=== PATIENT | male | born 1945 | race Caucasian/White ===

== ENCOUNTER → 2021-03-15 08:31 | Outpatient (CLI) | payer MEDICARE, SELFPAY ==
[2021-03-15 10:27] LABS: Cholesterol 189 mg/dL (140-199); HDL Cholesterol 81 mg/dL (40-60); LDL Cholesterol Calculated 96 mg/dL (<100); Triglycerides 59 mg/dL (35-150)
== END ==
PROVIDERS: Family Provider Internal Medicine; PCP Internal Medicine; Referring Provider Internal Medicine; Visit Provider Internal Medicine
DX: Z13.220 Encounter for screening for lipoid disorders (principal)
CPT/HCPCS: 36415; 80061

== ENCOUNTER → 2024-01-11 09:10 | Outpatient (CLI) | payer MEDICARE, SELFPAY ==
--- NOTE | 2024-01-11 09:11 | DI.MRI.S_ITS ---
PROCEDURE: MR LUMBAR SPINE WO CON INDICATIONS: LE WEAKNESS AND NUMBNESS TECHNIQUE: Noncontrast sagittal T1 spin echo and T2 fast echo, sagittal STIR, and T2 fast spin echo through the lumbar spine. In cases with scoliosis, additional coronal T2 fast spin echo may be performed. COMPARISON: None. FINDINGS: Image quality: Excellent Localizer image: Unremarkable Mild retrolisthesis of L2 on L3, L3 on L4. Grade 1 anterolisthesis L4 on L5. Mild retrolisthesis of L5 on S1. There is mild superior and inferior endplate fracture of L1, without marrow edema, chronic. Multilevel fibrovascular endplate change of the lumbar spine. Multilevel disc bulge and disc desiccation. Conus terminates at the level of L2, and is unremarkable. Right neural foraminal stenosis: Mild at L4-5, severe at L5-S1. Left neural foraminal stenosis: Mild at L3-4, moderate at L4-5 and mild at L5-S1. Mild central canal stenosis at T11-T12, secondary to posterior disc osteophyte complex. Axial images: T12-L1: No central canal stenosis. L1-2: No central canal stenosis. L2-3: Mild bilateral facet arthropathy. Posterior disc uncovering. No central canal stenosis. L3-4: Disc bulge. Moderate bilateral facet arthropathy. Epidural lipomatosis. Severe central canal stenosis. L4-5: Disc bulge. Severe bilateral facet arthropathy. Epidural lipomatosis. Severe central canal stenosis. L5-S1: Disc bulge. Mild bilateral facet arthropathy. No central canal stenosis. Visualized sacrum is intact. No abdominal aortic aneurysm. IMPRESSION: 1. Multilevel degenerative changes of the lumbar spine, most pronounced at L3-4 and L4-5, where there is severe central canal stenosis. 2. Severe right neural foraminal stenosis at L5-S1. 3. Chronic, mild superior and inferior endplate fracture of L1. Dictated by: Arlin Beach M.D. on 01/11/2024 at 14:04 Approved by: Arlin Beach M.D. on 01/11/2024 at 14:15
== END ==
PROVIDERS: Family Provider Internal Medicine; PCP Internal Medicine; Referring Provider Physical Medicine & Rehabilitation Pain Medicine; Visit Provider Physical Medicine & Rehabilitation Pain Medicine
DX: M48.061 Spinal stenosis, lumbar region without neurogenic claudication (principal); M48.07 Spinal stenosis, lumbosacral region; M47.816 Spondylosis without myelopathy or radiculopathy, lumbar region; M47.817 Spondylosis without myelopathy or radiculopathy, lumbosacral region; M48.56XA Collapsed vertebra, not elsewhere classified, lumbar region, initial encounter for fracture
CPT/HCPCS: 72148

== ENCOUNTER 2024-08-23 09:00 | Outpatient (RCR) | payer MEDICARE, SELFPAY ==
--- NOTE | 2024-05-04 12:35 | PT.OIE ---
Current Diagnoses Spinal stenosis, lumbar region with neurogenic claudication (05/04/24) Postlaminectomy syndrome, not elsewhere classified (05/04/24) Other abnormalities of gait and mobility (05/04/24) Abnormal posture (05/04/24) Weakness (05/04/24) Visit Care Team Role Provider Type Gomez Cash MD Family Provider Physician Primary Care Provider Specialty: Internal Medicine Address: [address] [place] [address], [facility] [address], [address] Email: [email or web address] Little MD Attending Provider Non-Staff Referring Provider Specialty: Orthopedics Orthopedic Surgery Address: [address] [place] [address], [id number] Email: Physical Therapy Initial Evaluation PT-OP-A Visit Information Start: 04/25/24 10:29 Freq: Status: Active Protocol: Document 05/04/24 09:45 [facility] (Rec: 05/04/24 10:51 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 (Rec: 05/04/24 10:51 [facility] [id number]) Current Condition History of Current Condition Onset Date Dec 2 Current Complaints lami L4-5 History of Current Condition Pt had laminectomy L4-5 Dec 2 d/t could hardly bent L leg. Took care of flexiblity issues but is still very still when first gets up. no more pain down leg. Pt reports doens't ahve much pain but feels stiff when standing a long time. Pt reports has to walk slowly to not lose balance. He feels like over the past 3 years he has had a gradual dec in balance and ability to respond to uneven ground. Got to the point where he hasn't been able to ride horses for 3 years and has not been able to paly w/grandkids. 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 Has 7 of own horses and board 3 other horses but has a date pitter on the property to care of the horses for 15 days a month. Mostly does care of stalls but he does all the repairs of fences etc. Feels like got bent over more in the last year. First started getting back pain and leg issues about 3 years ago. did have neck surgery and was helping friend get horse in trailer and slipped on ice and fell on neck, head and shulder and was paralyzed for 24 hours in legs and arms gradually got movement back. had to be taken by ambulance to [facility]. C3-4 fusion and vertebral replacement (ant and post) performed at [facility] for emergency surgery may 14, 2009, (injury was Apr 27 2008) . During recovery process was very restricted for 5 months. Did have coordination issues after surgery and hasn't gotten full recovery of RUE. this has affected his leg coordination. Another occasion where he cracked a vertebra in back and thinks this may have contributed to stenosis in back. Does report he has BLT restrictiona nd adheres to lifting restrictions, but does feel like it is hard to avoid bending and twisting Treatment Goals Patient/Caregiver Goals Improve walking ability and be able mount his horse and ride again. PT-OP-C Subjective Start: 04/25/24 10:29 Freq: Status: Active Protocol: Document 05/04/24 09:45 [facility] (Rec: 05/04/24 10:51 [facility] [id number]) OP-PT Pain Assessment Location back pain Pain Location Details back discomfort and leg stiffness Description- Other stiff Pain Aggravating Factors Standing PT-OP-D Balance Start: 04/25/24 10:29 Freq: Status: Active Protocol: Document 05/04/24 09:45 [facility] (Rec: 05/04/24 10:51 [facility] [id number]) Balance Tests Single Limb Standing Single Limb- Right able to lift leg only Single Limb- Left able to lift leg only PT-OP-E Functional Tests Start: 05/04/24 12:27 Freq: Status: Active Protocol: Document 05/04/24 09:45 [facility] (Rec: 05/04/24 12:27 [facility] [id number]) Functional Tests Dynamic Gait Index (DGI) Score 11/17 PT-OP-F Manual Assessment Start: 04/25/24 10:29 Freq: Status: Active Protocol: Document 05/04/24 09:45 [facility] (Rec: 05/04/24 10:51 [facility] [id number]) Manual Assessments Joint Mobility Assessment Joint Mobility Assessment significant lack of hip mobility PT-OP-G Mobility & Gait Start: 04/25/24 10:29 Freq: Status: Active Protocol: Document 05/04/24 09:45 [facility] (Rec: 05/04/24 10:51 [facility] [id number]) OP Gait Assessment Comments Gait Comments flexed trunk, dec RLE stance time, dec B foot clearance, lat L lean w/WB on LLE PT-OP-J Posture/Palpation/Skin Start: 04/25/24 10:29 Freq: Status: Active Protocol: Document 05/04/24 09:45 [facility] (Rec: 05/04/24 10:51 [facility] [id number]) Posture Evaluation [facility] Postural Classification System Lumbar Protective Mechanism Left AP 0 Lumbar Protective Mechanism Right AP 0 Lumbar Protective Mechanism Left PA 0 Lumbar Protective Mechanism Right PA 0 Comments Posture Comments fwd bent, flexed hips, inc kyphosis, L slightly bent, rotated R, SB L, pelvis shear R PT-OP-K Range of Motion Start: 04/25/24 10:29 Freq: Status: Active Protocol: Document 05/04/24 09:45 [facility] (Rec: 05/04/24 10:51 [facility] [id number]) Lumbar Spine Range of Motion Lumbar Spine Active Percentage Comments n/t d/t restrictions PT-OP-L Special Tests Start: 04/25/24 10:29 Freq: Status: Active Protocol: Document 05/04/24 09:45 [facility] (Rec: 05/04/24 10:51 [facility] [id number]) Special Tests Lumbar Spine Special Tests SLR Test Results R>L HS tightness Slump Test Results neg -dec HS length Other Special Tests Special Tests tone noted in RLE PT-OP-M Strength Start: 04/25/24 10:29 Freq: Status: Active Protocol: Document 05/04/24 09:45 [facility] (Rec: 05/04/24 10:51 [facility] [id number]) Hip Strength Hip Manual Muscle Testing Right Flexion (L2) 4- Good- Abduction 3 Fair External Rotation 3 Fair Internal Rotation 3- Fair- Left Flexion (L2) 4- Good- Abduction 3+ Fair+ External Rotation 3+ Fair+ Internal Rotation 3- Fair- Knee Strength Knee Manual Muscle Testing Right Flexion (S2) 4- Good- Extension (L3) 4+ Good+ Left Flexion (S2) 4 Good Extension (L3) 4+ Good+ Ankle/Foot Strength Ankle and Foot Manual Muscle Testing Right Dorsiflexion (L4) 4 Good Plantarflexion (S1) 4 Good Left Dorsiflexion (L4) 4- Good- Plantarflexion (S1) 4 Good Comments PF tested seated B PT-OP-T Assessment and Plan Start: 04/25/24 10:29 Freq: Status: Active Protocol: Document 05/04/24 09:45 [facility] (Rec: 05/04/24 10:51 [facility] [id number]) Physical Therapy Assessment Rehab Potential Rehabilitation Potential Good Evaluation Complexity Number of Personal Factors/Comorbidities 3 or More Number of Body Systems Impaired 4 or More Clinical Presentation at Evaluation Evolving Impairments Impairments Activity Tolerance,Balance, Coordination,Functional Activities,Functional Mobility ,Gait,Pain,Posture,ROM, Sensation,Soft Tissue Mobility ,Strength,Tone,Transfers Goals balance Impairment DGI 11/17 Short Term Goal (STG) Pt will improve DGI to at least 13 to dec fall risk STG Duration 06/11/24 Reject Opener And Filler Goal (LTG) Pt will improve DGI to at least 18 to dec fall risk LTG Duration / activity Halfway Goal (LTG) Pt will be able to ride horse and participate in all care of property. LTG Duration 07/27 strength Short Term Goal (STG) Pt will be indep w/HEP STG Duration 06/04 Reject Opener And Filler Goal (LTG) Pt will score at least 4+/5 on all BLE MMT and at least 3/5 on LPM to show improved stability to allow greater ease w/typical activities. LTG Duration / Assessment Summary Assessment Pt presents 1 month s/p laminectomy L4-5 with good pain relief in LLE and back overall but is noting cont BLE stiffness and weakness and dec balance.T his has been going on for the past 3 years w/gradual worsening that has dec his function. He is typically very active inclduing riding horseback, caring for his britney and managing the horses at his home. He does have hx of C3-4 injury in 2008 d/t fall where he was paralyzed for 24 hours but gradually regained motion but has had dec coordination in RUE and LEs since then. He has signfiicantly fwd flexed posture and shows high risk for falls based on testing along w/weakness and tone along w/dec coordination of LEs. He would benefit from skilled PT in order to manage this and improve function after laminectomy. Physical Therapy Plan Frequency and Duration Frequency of Treatment 2x/Week Duration of treatment (weeks) 12 Plan of Care Start Date 05/04/24 Plan of Care End Date 07/27/24 Therapeutic Interventions Therapeutic Interventions Balance Training,Coordination Training,Gait Training,Home Exercise Program,Joint Mobilizations,Manual Therapy, Neuromuscular Re-education, Orthotic/Prosthetic Management ,Patient/Caregiver Education, Self-Care/Home Management,Soft Tissue Mobilization,Taping, Therapeutic Activities, Therapeutic Exercises Modalities Cold Pack/Ice Massage,Electric Stimulation,Hot Packs, Infrared Therapy,Ultrasound Next Visit Focus/Plan Next Note Type Treatment Note Next Visit Plan check to see what the MD said HEP: sit to stands, paloff press, supine core, hip strengthening Balance: shuttle balance, hurdles, foam
--- NOTE | 2024-05-04 12:35 | PT.OPPOC ---
Addendum entered and electronically signed by Zuly Smyth PT 05/04/24 12:35: POC faxed Original Note: Physical, Occupational & Speech Therapy At [facility] Current Diagnoses Spinal stenosis, lumbar region with neurogenic claudication (05/04/24) Postlaminectomy syndrome, not elsewhere classified (05/04/24) Other abnormalities of gait and mobility (05/04/24) Abnormal posture (05/04/24) Weakness (05/04/24) Visit Care Team Role Provider Type Gomez Cash MD Family Provider Physician Primary Care Provider Specialty: Internal Medicine Address: [address] [place] [address], [facility] [address], [place], [address] Email: [email or web address] Partha Little MD Attending Provider Non-Staff Referring Provider Specialty: Orthopedics Orthopedic Surgery Address: [address] [place] [address], [id number] Email: Plan Of Care PT-OP-B Current Condition Start: 04/25/24 10:29 Freq: Status: Active Protocol: Document 05/04/24 09:45 [facility] (Rec: 05/04/24 10:51 [facility] [id number]) Current Condition History of Current Condition Onset Date Dec 2 Current Complaints lami L4-5 History of Current Condition Pt had laminectomy L4-5 Dec 2 d/t could hardly bent L leg. Took care of flexiblity issues but is still very still when first gets up. no more pain down leg. Pt reports doens't ahve much pain but feels stiff when standing a long time. Pt reports has to walk slowly to not lose balance. He feels like over the past 3 years he has had a gradual dec in balance and ability to respond to uneven ground. Got to the point where he hasn't been able to ride horses for 3 years and has not been able to paly w/grandkids. 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 Has 7 of own horses and board 3 other horses but has a livestock slaughterer on the property to care of the horses for 15 days a month. Mostly does care of stalls but he does all the repairs of fences etc. Feels like got bent over more in the last year. First started getting back pain and leg issues about 3 years ago. did have neck surgery and was helping friend get horse in trailer and slipped on ice and fell on neck, head and shulder and was paralyzed for 24 hours in legs and arms gradually got movement back. had to be taken by ambulance to [facility]. C3-4 fusion and vertebral replacement (ant and post) performed at [facility] for emergency surgery may 14, 2009, (injury was Apr 27 2008) . During recovery process was very restricted for 5 months. Did have coordination issues after surgery and hasn't gotten full recovery of RUE. this has affected his leg coordination. Another occasion where he cracked a vertebra in back and thinks this may have contributed to stenosis in back. Does report he has BLT restrictiona nd adheres to lifting restrictions, but does feel like it is hard to avoid bending and twisting Treatment Goals Patient/Caregiver Goals Improve walking ability and be able mount his horse and ride again. PT-OP-T Assessment and Plan Start: 04/25/24 10:29 Freq: Status: Active Protocol: Document 05/04/24 09:45 [facility] (Rec: 05/04/24 10:51 [facility] [id number]) Physical Therapy Assessment Rehab Potential Rehabilitation Potential Good Evaluation Complexity Number of Personal Factors/Comorbidities 3 or More Number of Body Systems Impaired 4 or More Clinical Presentation at Evaluation Evolving Impairments Impairments Activity Tolerance,Balance, Coordination,Functional Activities,Functional Mobility ,Gait,Pain,Posture,ROM, Sensation,Soft Tissue Mobility ,Strength,Tone,Transfers Goals balance Impairment DGI 11/17 Short Term Goal (STG) Pt will improve DGI to at least 13 to dec fall risk STG Duration 06/11/24 Eviscerator Goal (LTG) Pt will improve DGI to at least 18 to dec fall risk LTG Duration 4/2 activity Fpc Goal (LTG) Pt will be able to ride horse and participate in all care of property. LTG Duration 4/ strength Short Term Goal (STG) Pt will be indep w/HEP STG Duration 06/04 Eviscerator Goal (LTG) Pt will score at least 4+/5 on all BLE MMT and at least 3/5 on LPM to show improved stability to allow greater ease w/typical activities. LTG Duration 4/2 Assessment Summary Assessment Pt presents 1 month s/p laminectomy L4-5 with good pain relief in LLE and back overall but is noting cont BLE stiffness and weakness and dec balance.T his has been going on for the past 3 years w/gradual worsening that has dec his function. He is typically very active inclduing riding horseback, caring for his britney and managing the horses at his home. He does have hx of C3-4 injury in 2008 d/t fall where he was paralyzed for 24 hours but gradually regained motion but has had dec coordination in RUE and LEs since then. He has signfiicantly fwd flexed posture and shows high risk for falls based on testing along w/weakness and tone along w/dec coordination of LEs. He would benefit from skilled PT in order to manage this and improve function after laminectomy. Physical Therapy Plan Frequency and Duration Frequency of Treatment 2x/Week Duration of treatment (weeks) 12 Plan of Care Start Date 05/04/24 Plan of Care End Date 07/27/24 Therapeutic Interventions Therapeutic Interventions Balance Training,Coordination Training,Gait Training,Home Exercise Program,Joint Mobilizations,Manual Therapy, Neuromuscular Re-education, Orthotic/Prosthetic Management ,Patient/Caregiver Education, Self-Care/Home Management,Soft Tissue Mobilization,Taping, Therapeutic Activities, Therapeutic Exercises Modalities Cold Pack/Ice Massage,Electric Stimulation,Hot Packs, Infrared Therapy,Ultrasound Next Visit Focus/Plan Next Note Type Treatment Note Next Visit Plan check to see what the MD said HEP: sit to stands, paloff press, supine core, hip strengthening Balance: shuttle balance, hurdles, foam Plan of Care Dates Plan of Care Start Date 05/04/24 Plan of Care End Date 07/27/24 Electronically Signed by: Zuly Smyth, PT 05/04/24 [id number] If you are in agreement with this Plan of Care, please return a signed and dated copy. I have reviewed this Plan of Care and certify that the skilled therapy services above are required to meet the patient?s needs. Physician Signature Date Printed Name and Credentials Clinical Instructor Signature Printed Name and Credentials
--- NOTE | 2024-05-09 10:48 | PT.OTN ---
Current Diagnoses Spinal stenosis, lumbar region with neurogenic claudication (05/09/24) Postlaminectomy syndrome, not elsewhere classified (05/09/24) Other abnormalities of gait and mobility (05/09/24) Abnormal posture (05/09/24) Weakness (05/09/24) Physical Therapy Treatment Note PT-OP-A Visit Information Start: 04/25/24 10:29 Freq: Status: Active Protocol: Document 05/09/24 09:51 [facility] (Rec: 05/09/24 10:48 [facility] [id number]) Out-Patient Physical Therapy Visit Information Visit Information Visit Type Treatment Note Visit Start Time 09:51 Visit Stop Time 10:30 Visit Number 2/ Number of INDUSTRIAL ORGANIZATIONAL PSYCHOLOGIST Visits 0 PT-OP-B Current Condition Start: 04/25/24 10:29 Freq: Status: Active Protocol: Document 05/04/24 09:45 [facility] (Rec: 05/04/24 10:51 [facility] [id number]) Current Condition History of Current Condition Onset Date Mar 2 Current Complaints lami L4-5 History of Current Condition Pt had laminectomy L4-5 Dec 2 d/t could hardly bent L leg. Took care of flexiblity issues but is still very still when first gets up. no more pain down leg. Pt reports doens't ahve much pain but feels stiff when standing a long time. Pt reports has to walk slowly to not lose balance. He feels like over the past 3 years he has had a gradual dec in balance and ability to respond to uneven ground. Got to the point where he hasn't been able to ride horses for 3 years and has not been able to paly w/grandkids. 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 Has 7 of own horses and board 3 other horses but has a pasteurizing machine operator on the property to care of the horses for 15 days a month. Mostly does care of stalls but he does all the repairs of fences etc. Feels like got bent over more in the last year. First started getting back pain and leg issues about 3 years ago. did have neck surgery and was helping friend get horse in trailer and slipped on ice and fell on neck, head and shulder and was paralyzed for 24 hours in legs and arms gradually got movement back. had to be taken by ambulance to [facility]. C3-4 fusion and vertebral replacement (ant and post) performed at [facility] for emergency surgery may 14, 2009, (injury was Apr 27 2008) . During recovery process was very restricted for 5 months. Did have coordination issues after surgery and hasn't gotten full recovery of RUE. this has affected his leg coordination. Another occasion where he cracked a vertebra in back and thinks this may have contributed to stenosis in back. Does report he has BLT restrictiona nd adheres to lifting restrictions, but does feel like it is hard to avoid bending and twisting Treatment Goals Patient/Caregiver Goals Improve walking ability and be able mount his horse and ride again. PT-OP-C Subjective Start: 04/25/24 10:29 Freq: Status: Active Protocol: Document 05/09/24 09:51 [facility] (Rec: 05/09/24 10:48 [facility] [id number]) OP-PT Subjective Patient Comments Patient Comments surgeon cleared pt for all bending, lifting and twisting and has no furthe rfollow ups unless needs to. PT-OP-D Balance Start: 04/25/24 10:29 Freq: Status: Active Protocol: Document 05/04/24 09:45 [facility] (Rec: 05/04/24 10:51 [facility] [id number]) Balance Tests Single Limb Standing Single Limb- Right able to lift leg only Single Limb- Left able to lift leg only PT-OP-E Functional Tests Start: 05/04/24 12:27 Freq: Status: Active Protocol: Document 05/04/24 09:45 [facility] (Rec: 05/04/24 12:27 [facility] [id number]) Functional Tests Dynamic Gait Index (DGI) Score 11/17 PT-OP-F Manual Assessment Start: 04/25/24 10:29 Freq: Status: Active Protocol: Document 05/04/24 09:45 [facility] (Rec: 05/04/24 10:51 [facility] [id number]) Manual Assessments Joint Mobility Assessment Joint Mobility Assessment significant lack of hip mobility PT-OP-G Mobility & Gait Start: 04/25/24 10:29 Freq: Status: Active Protocol: Document 05/04/24 09:45 [facility] (Rec: 05/04/24 10:51 [facility] [id number]) OP Gait Assessment Comments Gait Comments flexed trunk, dec RLE stance time, dec B foot clearance, lat L lean w/WB on LLE PT-OP-J Posture/Palpation/Skin Start: 04/25/24 10:29 Freq: Status: Active Protocol: Document 05/04/24 09:45 [facility] (Rec: 05/04/24 10:51 [facility] [id number]) Posture Evaluation [facility] Postural Classification System Lumbar Protective Mechanism Left AP 0 Lumbar Protective Mechanism Right AP 0 Lumbar Protective Mechanism Left PA 0 Lumbar Protective Mechanism Right PA 0 Comments Posture Comments fwd bent, flexed hips, inc kyphosis, L slightly bent, rotated R, SB L, pelvis shear R PT-OP-K Range of Motion Start: 04/25/24 10:29 Freq: Status: Active Protocol: Document 05/04/24 09:45 [facility] (Rec: 05/04/24 10:51 [facility] [id number]) Lumbar Spine Range of Motion Lumbar Spine Active Percentage Comments n/t d/t restrictions PT-OP-L Special Tests Start: 04/25/24 10:29 Freq: Status: Active Protocol: Document 05/04/24 09:45 [facility] (Rec: 05/04/24 10:51 [facility] [id number]) Special Tests Lumbar Spine Special Tests SLR Test Results R>L HS tightness Slump Test Results neg -dec HS length Other Special Tests Special Tests tone noted in RLE PT-OP-M Strength Start: 04/25/24 10:29 Freq: Status: Active Protocol: Document 05/04/24 09:45 [facility] (Rec: 05/04/24 10:51 [facility] [id number]) Hip Strength Hip Manual Muscle Testing Right Flexion (L2) 4- Good- Abduction 3 Fair External Rotation 3 Fair Internal Rotation 3- Fair- Left Flexion (L2) 4- Good- Abduction 3+ Fair+ External Rotation 3+ Fair+ Internal Rotation 3- Fair- Knee Strength Knee Manual Muscle Testing Right Flexion (S2) 4- Good- Extension (L3) 4+ Good+ Left Flexion (S2) 4 Good Extension (L3) 4+ Good+ Ankle/Foot Strength Ankle and Foot Manual Muscle Testing Right Dorsiflexion (L4) 4 Good Plantarflexion (S1) 4 Good Left Dorsiflexion (L4) 4- Good- Plantarflexion (S1) 4 Good Comments PF tested seated B PT-OP-Q Treatments Start: 04/25/24 10:29 Freq: Status: Active Protocol: Document 05/09/24 09:51 [facility] (Rec: 05/09/24 10:48 [facility] [id number]) Gym Equipment Shuttle Balance blue clips Comments FWd & side: WBOS & NBOS fwd: staggered stance B Therapeutic Exercises Supine Exercises Bridge Side bilateral Reps/Minutes 10 LTR Side bilateral Reps/Minutes 10 Comments cues shoulder down and comfortable range Standing Exercises resisted walk Standing Exercise Name 1. sidestep 2. fwd/back Side bilateral Equipment Used lvl 1 Reps/Minutes 1.15ft B 2. 15ftx2 B hip abd Side bilateral Equipment Used L1 Reps/Minutes x10 Comments cues posture paloff press Side bilateral Equipment Used Lvl 1 (2 bands) Reps/Minutes 10 sit to stand Side bilateral Reps/Minutes 10 Comments 1 hand to push up from chair arm rest Neuro Re-Education Treatment Balance Activities hurdles Equipment 6 hurdles Comments 1.fwd reciprocally w/1 rail x6 2.sidestep x2 B PT-OP-T Assessment and Plan Start: 04/25/24 10:29 Freq: Status: Active Protocol: Document 05/09/24 09:51 [facility] (Rec: 05/09/24 10:48 [facility] [id number]) Physical Therapy Assessment Goals balance Impairment DGI 11/17 Short Term Goal (STG) Pt will improve DGI to at least 13 to dec fall risk STG Duration 06/11/24 Event Av Operator Goal (LTG) Pt will improve DGI to at least 18 to dec fall risk LTG Duration 4/2 activity Long-Term Goal (LTG) Pt will be able to ride horse and participate in all care of property. LTG Duration 4/ strength Short Term Goal (STG) Pt will be indep w/HEP STG Duration 06/04 Long-Term Goal (LTG) Pt will score at least 4+/5 on all BLE MMT and at least 3/5 on LPM to show improved stability to allow greater ease w/typical activities. LTG Duration 4/2 Assessment Summary Assessment no inc pain w/exercises but max cues for posture throughout. He was challenged by all balance exercises Physical Therapy Plan Frequency and Duration Frequency of Treatment 2x/Week Duration of treatment (weeks) 12 Plan of Care Start Date 05/04/24 Plan of Care End Date 07/27/24 Next Visit Focus/Plan Next Note Type Treatment Note Next Visit Plan check to see what the MD said review HEP and advance as able : sit to stands, paloff press, supine core, hip strengthening Balance: shuttle balance, hurdles, foam manual and needed PNF
--- NOTE | 2024-05-11 09:46 | PT.OTN ---
Current Diagnoses Spinal stenosis, lumbar region with neurogenic claudication (05/11/24) Postlaminectomy syndrome, not elsewhere classified (05/11/24) Other abnormalities of gait and mobility (05/11/24) Abnormal posture (05/11/24) Weakness (05/11/24) Physical Therapy Treatment Note PT-OP-A Visit Information Start: 04/25/24 10:29 Freq: Status: Active Protocol: Document 05/11/24 09:03 [facility] (Rec: 05/11/24 09:54 [facility] [id number]) Out-Patient Physical Therapy Visit Information Visit Information Visit Type Treatment Note Visit Start Time 09:03 Visit Stop Time 09:46 Visit Number 3/17 Number of ELEMENTARY ART TEACHER Visits 1 Precautions Precautions no twisting, bending, lifting >10 lbs -sees doctor tomorrow PT-OP-B Current Condition Start: 04/25/24 10:29 Freq: Status: Active Protocol: Document 05/04/24 09:45 [facility] (Rec: 05/04/24 10:51 [facility] [id number]) Current Condition History of Current Condition Onset Date Mar 2 Current Complaints lami L4-5 History of Current Condition Pt had laminectomy L4-5 Dec 2 d/t could hardly bent L leg. Took care of flexiblity issues but is still very still when first gets up. no more pain down leg. Pt reports doens't ahve much pain but feels stiff when standing a long time. Pt reports has to walk slowly to not lose balance. He feels like over the past 3 years he has had a gradual dec in balance and ability to respond to uneven ground. Got to the point where he hasn't been able to ride horses for 3 years and has not been able to paly w/grandkids. 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 Has 7 of own horses and board 3 other horses but has a principal quality engineer on the property to care of the horses for 15 days a month. Mostly does care of stalls but he does all the repairs of fences etc. Feels like got bent over more in the last year. First started getting back pain and leg issues about 3 years ago. did have neck surgery and was helping friend get horse in trailer and slipped on ice and fell on neck, head and shulder and was paralyzed for 24 hours in legs and arms gradually got movement back. had to be taken by ambulance to [facility]. C3-4 fusion and vertebral replacement (ant and post) performed at [facility] for emergency surgery may 14, 2009, (injury was Apr 27 2008) . During recovery process was very restricted for 5 months. Did have coordination issues after surgery and hasn't gotten full recovery of RUE. this has affected his leg coordination. Another occasion where he cracked a vertebra in back and thinks this may have contributed to stenosis in back. Does report he has BLT restrictiona nd adheres to lifting restrictions, but does feel like it is hard to avoid bending and twisting Treatment Goals Patient/Caregiver Goals Improve walking ability and be able mount his horse and ride again. PT-OP-C Subjective Start: 04/25/24 10:29 Freq: Status: Active Protocol: Document 05/11/24 09:03 SP (Rec: 05/11/24 09:54 SP [id number]) OP-PT Subjective Patient Comments Patient Comments Pt reports had follow up with MD and stated no lifting restriction but progress weight slowly. PT-OP-D Balance Start: 04/25/24 10:29 Freq: Status: Active Protocol: Document 05/04/24 09:45 [facility] (Rec: 05/04/24 10:51 [facility] [id number]) Balance Tests Single Limb Standing Single Limb- Right able to lift leg only Single Limb- Left able to lift leg only PT-OP-E Functional Tests Start: 05/04/24 12:27 Freq: Status: Active Protocol: Document 05/04/24 09:45 [facility] (Rec: 05/04/24 12:27 [facility] [id number]) Functional Tests Dynamic Gait Index (DGI) Score 11/17 PT-OP-F Manual Assessment Start: 04/25/24 10:29 Freq: Status: Active Protocol: Document 05/04/24 09:45 [facility] (Rec: 05/04/24 10:51 [facility] [id number]) Manual Assessments Joint Mobility Assessment Joint Mobility Assessment significant lack of hip mobility PT-OP-G Mobility & Gait Start: 04/25/24 10:29 Freq: Status: Active Protocol: Document 05/04/24 09:45 [facility] (Rec: 05/04/24 10:51 [facility] [id number]) OP Gait Assessment Comments Gait Comments flexed trunk, dec RLE stance time, dec B foot clearance, lat L lean w/WB on LLE PT-OP-J Posture/Palpation/Skin Start: 04/25/24 10:29 Freq: Status: Active Protocol: Document 05/04/24 09:45 [facility] (Rec: 05/04/24 10:51 [facility] [id number]) Posture Evaluation [facility] Postural Classification System Lumbar Protective Mechanism Left AP 0 Lumbar Protective Mechanism Right AP 0 Lumbar Protective Mechanism Left PA 0 Lumbar Protective Mechanism Right PA 0 Comments Posture Comments fwd bent, flexed hips, inc kyphosis, L slightly bent, rotated R, SB L, pelvis shear R PT-OP-K Range of Motion Start: 04/25/24 10:29 Freq: Status: Active Protocol: Document 05/04/24 09:45 [facility] (Rec: 05/04/24 10:51 [facility] [id number]) Lumbar Spine Range of Motion Lumbar Spine Active Percentage Comments n/t d/t restrictions PT-OP-L Special Tests Start: 04/25/24 10:29 Freq: Status: Active Protocol: Document 05/04/24 09:45 [facility] (Rec: 05/04/24 10:51 [facility] [id number]) Special Tests Lumbar Spine Special Tests SLR Test Results R>L HS tightness Slump Test Results neg -dec HS length Other Special Tests Special Tests tone noted in RLE PT-OP-M Strength Start: 04/25/24 10:29 Freq: Status: Active Protocol: Document 05/04/24 09:45 [facility] (Rec: 05/04/24 10:51 [facility] [id number]) Hip Strength Hip Manual Muscle Testing Right Flexion (L2) 4- Good- Abduction 3 Fair External Rotation 3 Fair Internal Rotation 3- Fair- Left Flexion (L2) 4- Good- Abduction 3+ Fair+ External Rotation 3+ Fair+ Internal Rotation 3- Fair- Knee Strength Knee Manual Muscle Testing Right Flexion (S2) 4- Good- Extension (L3) 4+ Good+ Left Flexion (S2) 4 Good Extension (L3) 4+ Good+ Ankle/Foot Strength Ankle and Foot Manual Muscle Testing Right Dorsiflexion (L4) 4 Good Plantarflexion (S1) 4 Good Left Dorsiflexion (L4) 4- Good- Plantarflexion (S1) 4 Good Comments PF tested seated B PT-OP-Q Treatments Start: 04/25/24 10:29 Freq: Status: Active Protocol: Document 05/11/24 09:03 SP (Rec: 05/11/24 09:54 SP [id number]) Therapeutic Exercises Supine Exercises Bridge Side bilateral Reps/Minutes 10 Comments segmental tilt lift/lower LTR Side bilateral Reps/Minutes 10 Comments cued slower pacing, allow lateral trunk/ribcage elongate stretch and TA Standing Exercises resisted walk Standing Exercise Name 1. sidestep 2. fwd/back Side bilateral Equipment Used lvl 1 at shins, PRN contact rail Reps/Minutes 1.15ft B 2. 15ftx2 B Comments cued posture, increase KEVIN, trail LE clearance, back R knee flexion hip abd Standing Exercise Name HEP reviewed Side bilateral Equipment Used L1 at shins Reps/Minutes 20 reps alternating Comments cues posture sit to stand Standing Exercise Name HEP reviewed Side bilateral Equipment Used 1 hand to push up from chair seat, slow desc no UE Reps/Minutes 10 Comments Cued Hip hinge PT-OP-T Assessment and Plan Start: 04/25/24 10:29 Freq: Status: Active Protocol: Document 05/11/24 09:03 SP (Rec: 05/11/24 09:54 SP [id number]) Physical Therapy Assessment Goals balance Impairment DGI 11/17 Short Term Goal (STG) Pt will improve DGI to at least 13 to dec fall risk STG Duration 06/11/24 Senior Living Goal (LTG) Pt will improve DGI to at least 18 to dec fall risk LTG Duration 4/2 activity Senior Living Goal (LTG) Pt will be able to ride horse and participate in all care of property. LTG Duration 4/2 strength Short Term Goal (STG) Pt will be indep w/HEP STG Duration 06/04 Commercial Real Estate Agent Goal (LTG) Pt will score at least 4+/5 on all BLE MMT and at least 3/5 on LPM to show improved stability to allow greater ease w/typical activities. LTG Duration 4/2 Assessment Summary Assessment Pt improved segmental trunk ROM with cuing for slower pacing and TA facilitation. Cues for posture throughout standinging activities improved foot clearance and ableto perform with les to no UE contact. Physical Therapy Plan Frequency and Duration Frequency of Treatment 2x/Week Duration of treatment (weeks) 12 Plan of Care Start Date 05/04/24 Plan of Care End Date 07/27/24 Therapeutic Interventions Therapeutic Interventions Balance Training,Coordination Training,Gait Training,Home Exercise Program,Joint Mobilizations,Manual Therapy, Neuromuscular Re-education, Orthotic/Prosthetic Management ,Patient/Caregiver Education, Self-Care/Home Management,Soft Tissue Mobilization,Taping, Therapeutic Activities, Therapeutic Exercises Modalities Cold Pack/Ice Massage,Electric Stimulation,Hot Packs, Infrared Therapy,Ultrasound Next Visit Focus/Plan Next Note Type Treatment Note Next Visit Plan Next tx: trial manual abdominal, QL and R>L hip flexor for increased posture and hip mobility. POC: Review HEP and advance as able: sit to stands, paloff press, supine core, hip strengthening Balance: shuttle balance, hurdles, foam manual and needed PNF
--- NOTE | 2024-05-17 09:46 | PT.OTN ---
Current Diagnoses Spinal stenosis, lumbar region with neurogenic claudication (05/17/24) Postlaminectomy syndrome, not elsewhere classified (05/17/24) Other abnormalities of gait and mobility (05/17/24) Abnormal posture (05/17/24) Weakness (05/17/24) Physical Therapy Treatment Note PT-OP-A Visit Information Start: 04/25/24 10:29 Freq: Status: Active Protocol: Document 05/17/24 09:06 SP (Rec: 05/17/24 09:53 SP [id number]) Out-Patient Physical Therapy Visit Information Visit Information Visit Type Treatment Note Visit Start Time 09:06 Visit Stop Time 09:46 Visit Number 4/ Number of TEMPORARY ADMINISTRATIVE ASSISTANT Visits 2 Precautions Precautions no twisting, bending, lifting >10 lbs -sees doctor tomorrow PT-OP-B Current Condition Start: 04/25/24 10:29 Freq: Status: Active Protocol: Document 05/04/24 09:45 [facility] (Rec: 05/04/24 10:51 [facility] [id number]) Current Condition History of Current Condition Onset Date Mar 2 Current Complaints lami L4-5 History of Current Condition Pt had laminectomy L4-5 Dec 2 d/t could hardly bent L leg. Took care of flexiblity issues but is still very still when first gets up. no more pain down leg. Pt reports doens't ahve much pain but feels stiff when standing a long time. Pt reports has to walk slowly to not lose balance. He feels like over the past 3 years he has had a gradual dec in balance and ability to respond to uneven ground. Got to the point where he hasn't been able to ride horses for 3 years and has not been able to paly w/grandkids. 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 Has 7 of own horses and board 3 other horses but has a genetics nurse on the property to care of the horses for 15 days a month. Mostly does care of stalls but he does all the repairs of fences etc. Feels like got bent over more in the last year. First started getting back pain and leg issues about 3 years ago. did have neck surgery and was helping friend get horse in trailer and slipped on ice and fell on neck, head and shulder and was paralyzed for 24 hours in legs and arms gradually got movement back. had to be taken by ambulance to [facility]. C3-4 fusion and vertebral replacement (ant and post) performed at [facility] for emergency surgery may 14, 2009, (injury was Apr 27 2008) . During recovery process was very restricted for 5 months. Did have coordination issues after surgery and hasn't gotten full recovery of RUE. this has affected his leg coordination. Another occasion where he cracked a vertebra in back and thinks this may have contributed to stenosis in back. Does report he has BLT restrictiona nd adheres to lifting restrictions, but does feel like it is hard to avoid bending and twisting Treatment Goals Patient/Caregiver Goals Improve walking ability and be able mount his horse and ride again. PT-OP-C Subjective Start: 04/25/24 10:29 Freq: Status: Active Protocol: Document 05/17/24 09:06 SP (Rec: 05/17/24 09:53 SP [id number]) OP-PT Subjective Patient Comments Patient Comments Pt reports doing HEP around counter. Has been busygetting service persons out to help fix repairs with high winds against his house. PT-OP-D Balance Start: 04/25/24 10:29 Freq: Status: Active Protocol: Document 05/04/24 09:45 [facility] (Rec: 05/04/24 10:51 [facility] [id number]) Balance Tests Single Limb Standing Single Limb- Right able to lift leg only Single Limb- Left able to lift leg only PT-OP-E Functional Tests Start: 05/04/24 12:27 Freq: Status: Active Protocol: Document 05/04/24 09:45 [facility] (Rec: 05/04/24 12:27 [facility] [id number]) Functional Tests Dynamic Gait Index (DGI) Score 11/17 PT-OP-F Manual Assessment Start: 04/25/24 10:29 Freq: Status: Active Protocol: Document 05/04/24 09:45 [facility] (Rec: 05/04/24 10:51 [facility] [id number]) Manual Assessments Joint Mobility Assessment Joint Mobility Assessment significant lack of hip mobility PT-OP-G Mobility & Gait Start: 04/25/24 10:29 Freq: Status: Active Protocol: Document 05/04/24 09:45 [facility] (Rec: 05/04/24 10:51 [facility] [id number]) OP Gait Assessment Comments Gait Comments flexed trunk, dec RLE stance time, dec B foot clearance, lat L lean w/WB on LLE PT-OP-J Posture/Palpation/Skin Start: 04/25/24 10:29 Freq: Status: Active Protocol: Document 05/04/24 09:45 [facility] (Rec: 05/04/24 10:51 [facility] [id number]) Posture Evaluation [facility] Postural Classification System Lumbar Protective Mechanism Left AP 0 Lumbar Protective Mechanism Right AP 0 Lumbar Protective Mechanism Left PA 0 Lumbar Protective Mechanism Right PA 0 Comments Posture Comments fwd bent, flexed hips, inc kyphosis, L slightly bent, rotated R, SB L, pelvis shear R PT-OP-K Range of Motion Start: 04/25/24 10:29 Freq: Status: Active Protocol: Document 05/04/24 09:45 [facility] (Rec: 05/04/24 10:51 [facility] [id number]) Lumbar Spine Range of Motion Lumbar Spine Active Percentage Comments n/t d/t restrictions PT-OP-L Special Tests Start: 04/25/24 10:29 Freq: Status: Active Protocol: Document 05/04/24 09:45 [facility] (Rec: 05/04/24 10:51 [facility] [id number]) Special Tests Lumbar Spine Special Tests SLR Test Results R>L HS tightness Slump Test Results neg -dec HS length Other Special Tests Special Tests tone noted in RLE PT-OP-M Strength Start: 04/25/24 10:29 Freq: Status: Active Protocol: Document 05/04/24 09:45 [facility] (Rec: 05/04/24 10:51 [facility] [id number]) Hip Strength Hip Manual Muscle Testing Right Flexion (L2) 4- Good- Abduction 3 Fair External Rotation 3 Fair Internal Rotation 3- Fair- Left Flexion (L2) 4- Good- Abduction 3+ Fair+ External Rotation 3+ Fair+ Internal Rotation 3- Fair- Knee Strength Knee Manual Muscle Testing Right Flexion (S2) 4- Good- Extension (L3) 4+ Good+ Left Flexion (S2) 4 Good Extension (L3) 4+ Good+ Ankle/Foot Strength Ankle and Foot Manual Muscle Testing Right Dorsiflexion (L4) 4 Good Plantarflexion (S1) 4 Good Left Dorsiflexion (L4) 4- Good- Plantarflexion (S1) 4 Good Comments PF tested seated B PT-OP-Q Treatments Start: 04/25/24 10:29 Freq: Status: Active Protocol: Document 05/17/24 09:06 SP (Rec: 05/17/24 09:53 SP [id number]) Therapeutic Exercises Supine Exercises adductor stretch] Supine Exercise Name added to HEP Side bilateral Reps/Minutes 30 SH Comments Cued ed TA if needed no LS arch, good adductor stretch no LB discomfort. Bridge Side bilateral Equipment Used 1 pillow under head Reps/Minutes 10 Comments improved segmental tilt lift/ lower LTR Side bilateral Reps/Minutes 10 Hold off to L lateral trunk stretch Comments cued slower pacing, allow lateral trunk/ribcage elongate stretch and TA Sitting Exercises open book Sitting Exercise Name added to HEp for am warm up Side bilateral Reps/Minutes 5 reps Comments cued pnfree range scap mob and TS rotation Standing Exercises paloff press Standing Exercise Name reviewed Side bilateral Equipment Used Lvl 1 light blue (2 bands double orange in PT) Reps/Minutes 10 Comments cued tall posturing, WBOS sit to stand Standing Exercise Name HEP reviewed Side bilateral Equipment Used 1 hand to push up from chair seat, slow desc no UE Reps/Minutes 10 Comments Cued Hip hinge Manual Therapy Treatment Consent Patient gave verbal consent for manual Yes treatment Soft Tissue Mobilization LS scar mobility Body Location Lower lumbar Mobilization Type Myofascial Release Body Position SL Comments Manual STMs and Ed self application hips Body Location B glut med, TFL Mobilization Type Rolling Body Position SL Comments pillow under head and between BLEs. back Body Location QL, LS paraspinals, PNF anterior elevation/posterior depression Mobilization Type Rolling,Other Body Position SL Comments pillow under head and between BLEs. Neuro Re-Education Treatment Balance Activities hurdles Equipment 6 hurdles Comments 1.fwd reciprocally /c 1 HR x2 2.sidestep /c 1 HR x2 PT-OP-T Assessment and Plan Start: 04/25/24 10:29 Freq: Status: Active Protocol: Document 05/17/24 09:06 SP (Rec: 05/17/24 09:53 SP [id number]) Physical Therapy Assessment Goals balance Impairment DGI 11/17 Short Term Goal (STG) Pt will improve DGI to at least 13 to dec fall risk STG Duration 06/11/24 Mcfp Goal (LTG) Pt will improve DGI to at least 18 to dec fall risk LTG Duration 4/2 activity Mcfp Goal (LTG) Pt will be able to ride horse and participate in all care of property. LTG Duration 4/ strength Short Term Goal (STG) Pt will be indep w/HEP STG Duration 06/04 Mcfp Goal (LTG) Pt will score at least 4+/5 on all BLE MMT and at least 3/5 on LPM to show improved stability to allow greater ease w/typical activities. LTG Duration 4 Assessment Summary Assessment Pt responded well to manual, and mobility in supine, added adductor and open book ROM/ stretching to allow trunk rotational mobility for gait carryover. CUes during gait for carryover arm swing and R knee flexion as performed doing hurdles for LS and hip mobility and R foot clearance. Physical Therapy Plan Frequency and Duration Frequency of Treatment 2x/Week Duration of treatment (weeks) 12 Plan of Care Start Date 05/04/24 Plan of Care End Date 07/27/24 Therapeutic Interventions Therapeutic Interventions Balance Training,Coordination Training,Gait Training,Home Exercise Program,Joint Mobilizations,Manual Therapy, Neuromuscular Re-education, Orthotic/Prosthetic Management ,Patient/Caregiver Education, Self-Care/Home Management,Soft Tissue Mobilization,Taping, Therapeutic Activities, Therapeutic Exercises Modalities Cold Pack/Ice Massage,Electric Stimulation,Hot Packs, Infrared Therapy,Ultrasound Next Visit Focus/Plan Next Note Type Treatment Note Next Visit Plan Continue: trial manual abdominal, QL and R>L hip flexor for increased posture and hip mobility. POC: Review HEP and advance as able: sit to stands, paloff press, supine core, hip strengthening Balance: shuttle balance, hurdles, foam manual and needed PNF
--- NOTE | 2024-05-30 10:50 | PT.OTN ---
Current Diagnoses Spinal stenosis, lumbar region with neurogenic claudication (05/30/24) Postlaminectomy syndrome, not elsewhere classified (05/30/24) Other abnormalities of gait and mobility (05/30/24) Abnormal posture (05/30/24) Weakness (05/30/24) Physical Therapy Treatment Note PT-OP-A Visit Information Start: 04/25/24 10:29 Freq: Status: Active Protocol: Document 05/30/24 09:47 [facility] (Rec: 05/30/24 10:50 [facility] [id number]) Out-Patient Physical Therapy Visit Information Visit Information Visit Type Progress Note Visit Start Time 09:49 Visit Stop Time 10:29 Visit Number 09/10 Number of CAUL PULLER Visits 0 PT-OP-B Current Condition Start: 04/25/24 10:29 Freq: Status: Active Protocol: Document 05/04/24 09:45 [facility] (Rec: 05/04/24 10:51 [facility] [id number]) Current Condition History of Current Condition Onset Date Mar 2 Current Complaints lami L4-5 History of Current Condition Pt had laminectomy L4-5 Dec 2 d/t could hardly bent L leg. Took care of flexiblity issues but is still very still when first gets up. no more pain down leg. Pt reports doens't ahve much pain but feels stiff when standing a long time. Pt reports has to walk slowly to not lose balance. He feels like over the past 3 years he has had a gradual dec in balance and ability to respond to uneven ground. Got to the point where he hasn't been able to ride horses for 3 years and has not been able to paly w/grandkids. 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 He does a lot of the work on this [employer] and [employer]. Has 7 of own horses and board 3 other horses but has a senior financial on the property to care of the horses for 15 days a month. Mostly does care of stalls but he does all the repairs of fences etc. Feels like got bent over more in the last year. First started getting back pain and leg issues about 3 years ago. did have neck surgery and was helping friend get horse in trailer and slipped on ice and fell on neck, head and shulder and was paralyzed for 24 hours in legs and arms gradually got movement back. had to be taken by ambulance to [facility]. C3-4 fusion and vertebral replacement (ant and post) performed at [facility] for emergency surgery may 14, 2009, (injury was Apr 27 2008) . During recovery process was very restricted for 5 months. Did have coordination issues after surgery and hasn't gotten full recovery of RUE. this has affected his leg coordination. Another occasion where he cracked a vertebra in back and thinks this may have contributed to stenosis in back. Does report he has BLT restrictiona nd adheres to lifting restrictions, but does feel like it is hard to avoid bending and twisting Treatment Goals Patient/Caregiver Goals Improve walking ability and be able mount his horse and ride again. PT-OP-C Subjective Start: 04/25/24 10:29 Freq: Status: Active Protocol: Document 05/30/24 09:47 [facility] (Rec: 05/30/24 10:50 [facility] [id number]) OP-PT Subjective Patient Comments Patient Comments Slow to get started in AM. He uses his exercises to limber up in the AM. Sees a gradual improvment PT-OP-D Balance Start: 04/25/24 10:29 Freq: Status: Active Protocol: Document 05/04/24 09:45 [facility] (Rec: 05/04/24 10:51 [facility] [id number]) Balance Tests Single Limb Standing Single Limb- Right able to lift leg only Single Limb- Left able to lift leg only PT-OP-E Functional Tests Start: 05/04/24 12:27 Freq: Status: Active Protocol: Document 05/30/24 09:47 [facility] (Rec: 05/30/24 10:50 [facility] [id number]) Functional Tests Dynamic Gait Index (DGI) Score PT-OP-F Manual Assessment Start: 04/25/24 10:29 Freq: Status: Active Protocol: Document 05/04/24 09:45 [facility] (Rec: 05/04/24 10:51 [facility] [id number]) Manual Assessments Joint Mobility Assessment Joint Mobility Assessment significant lack of hip mobility PT-OP-G Mobility & Gait Start: 04/25/24 10:29 Freq: Status: Active Protocol: Document 05/04/24 09:45 [facility] (Rec: 05/04/24 10:51 [facility] [id number]) OP Gait Assessment Comments Gait Comments flexed trunk, dec RLE stance time, dec B foot clearance, lat L lean w/WB on LLE PT-OP-J Posture/Palpation/Skin Start: 04/25/24 10:29 Freq: Status: Active Protocol: Document 05/30/24 09:47 [facility] (Rec: 05/30/24 10:50 [facility] [id number]) Posture Evaluation [facility] Postural Classification System Lumbar Protective Mechanism Left AP 0 Lumbar Protective Mechanism Right AP 0 Lumbar Protective Mechanism Left PA 0 Lumbar Protective Mechanism Right PA 0 PT-OP-K Range of Motion Start: 04/25/24 10:29 Freq: Status: Active Protocol: Document 05/04/24 09:45 [facility] (Rec: 05/04/24 10:51 [facility] [id number]) Lumbar Spine Range of Motion Lumbar Spine Active Percentage Comments n/t d/t restrictions PT-OP-L Special Tests Start: 04/25/24 10:29 Freq: Status: Active Protocol: Document 05/04/24 09:45 [facility] (Rec: 05/04/24 10:51 [facility] [id number]) Special Tests Lumbar Spine Special Tests SLR Test Results R>L HS tightness Slump Test Results neg -dec HS length Other Special Tests Special Tests tone noted in RLE PT-OP-M Strength Start: 04/25/24 10:29 Freq: Status: Active Protocol: Document 05/30/24 09:47 [facility] (Rec: 05/30/24 10:50 [facility] [id number]) Hip Strength Hip Manual Muscle Testing Right Flexion (L2) 4- Good- Abduction 3+ Fair+ External Rotation 3+ Fair+ Internal Rotation 3+ Fair+ Left Flexion (L2) 4 Good Abduction 4- Good- External Rotation 4- Good- Internal Rotation 4 Good Knee Strength Knee Manual Muscle Testing Right Flexion (S2) 4- Good- Extension (L3) 4+ Good+ Left Flexion (S2) 4 Good Extension (L3) 5 Normal Ankle/Foot Strength Ankle and Foot Manual Muscle Testing Right Dorsiflexion (L4) 4 Good Plantarflexion (S1) 4+ Good+ Left Dorsiflexion (L4) 4 Good Plantarflexion (S1) 4+ Good+ Comments PF tested seated B PT-OP-Q Treatments Start: 04/25/24 10:29 Freq: Status: Active Protocol: Document 05/30/24 09:47 [facility] (Rec: 05/30/24 10:50 [facility] [id number]) Therapeutic Exercises Supine Exercises Bridge Supine Exercise Name SL Side bilateral Equipment Used 1 pillow under head Reps/Minutes 6 Comments cues for foot position Standing Exercises stretch Standing Exercise Name hip flexor Side bilateral Reps/Minutes 1 min ea Comments inc time to get stretch resisted walk Standing Exercise Name 1. sidestep 2. fwd/back Side bilateral Equipment Used lvl 2 at shins, PRN contact rail Reps/Minutes 10ft x2 ea Comments cued posture, increase KEVIN, trail LE clearance, back R knee flexion hip abd Standing Exercise Name HEP reviewed Side bilateral Equipment Used L2 Reps/Minutes 10 reps alt Comments cues posture paloff press Standing Exercise Name reviewed Side bilateral Equipment Used Lvl 1 light blue (2 bands double orange in PT) Reps/Minutes 10 Comments cued tall posturing, WBOS sit to stand Standing Exercise Name HEP reviewed Side bilateral Equipment Used hands on knee Reps/Minutes 12 Comments Cued Hip hinge Neuro Re-Education Treatment Balance Activities testing Comments DGI PT-OP-T Assessment and Plan Start: 04/25/24 10:29 Freq: Status: Active Protocol: Document 05/30/24 09:47 [facility] (Rec: 05/30/24 10:50 [facility] [id number]) Physical Therapy Assessment Goals balance Impairment DGI 11/17 Short Term Goal (STG) Pt will improve DGI to at least 13 to dec fall risk STG Duration achieved 2/3 Transcribing Machine Mechanic Goal (LTG) Pt will improve DGI to at least 18 to dec fall risk LTG Duration 4/2 activity Transcribing Machine Mechanic Goal (LTG) Pt will be able to ride horse and participate in all care of property. 2/3-feels stronger on the property and getting back to full work, hasn't rode a horse LTG Duration 4/2 strength Short Term Goal (STG) Pt will be indep w/HEP STG Duration achieved advancing as able Transcribing Machine Mechanic Goal (LTG) Pt will score at least 4+/5 on all BLE MMT and at least 3/5 on LPM to show improved stability to allow greater ease w/typical activities. 2/3-improving LE strength LTG Duration 4/2 Assessment Summary Assessment Pt demonstrating improved balance and strength overall and cont to progress w/ PT w/ these activities. Cont PT to improve strength, balance and overall function. Able to advance exercises for home today Physical Therapy Plan Frequency and Duration Frequency of Treatment 2x/Week Duration of treatment (weeks) 12 Plan of Care Start Date 05/04/24 Plan of Care End Date 07/27/24 Therapeutic Interventions Therapeutic Interventions Balance Training,Coordination Training,Gait Training,Home Exercise Program,Joint Mobilizations,Manual Therapy, Neuromuscular Re-education, Orthotic/Prosthetic Management ,Patient/Caregiver Education, Self-Care/Home Management,Soft Tissue Mobilization,Taping, Therapeutic Activities, Therapeutic Exercises Modalities Cold Pack/Ice Massage,Electric Stimulation,Hot Packs, Infrared Therapy,Ultrasound Next Visit Focus/Plan Next Note Type Treatment Note Next Visit Plan Review and advance furtherHEP and advance as able: sit to stands, paloff press, supine core, hip strengthening Balance: shuttle balance, hurdles, foam manual and needed PNF
--- NOTE | 2024-05-30 12:24 | PT.OPPN ---
Current Diagnoses Spinal stenosis, lumbar region with neurogenic claudication (06/09/24) Postlaminectomy syndrome, not elsewhere classified (06/09/24) Other abnormalities of gait and mobility (06/09/24) Abnormal posture (06/09/24) Weakness (06/09/24) Physical Therapy Progress Note PT-OP-A Visit Information Start: 04/25/24 10:29 Freq: Status: Active Protocol: Document 06/09/24 12:24 [facility] (Rec: 05/30/24 10:50 [facility] [id number]) Out-Patient Physical Therapy Visit Information Visit Information Visit Type Progress Note Visit Start Time 09:49 Visit Stop Time 10:29 Visit Number 09/10 Number of LEGISLATORS Visits 0 PT-OP-B Current Condition Start: 04/25/24 10:29 Freq: Status: Active Protocol: Document 05/04/24 09:45 [facility] (Rec: 05/04/24 10:51 [facility] [id number]) Current Condition History of Current Condition Onset Date Mar 2 Current Complaints lami L4-5 History of Current Condition Pt had laminectomy L4-5 Dec 2 d/t could hardly bent L leg. Took care of flexiblity issues but is still very still when first gets up. no more pain down leg. Pt reports doens't ahve much pain but feels stiff when standing a long time. Pt reports has to walk slowly to not lose balance. He feels like over the past 3 years he has had a gradual dec in balance and ability to respond to uneven ground. Got to the point where he hasn't been able to ride horses for 3 years and has not been able to paly w/grandkids. 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 Has 7 of own horses and board 3 other horses but has a combination man on the property to care of the horses for 15 days a month. Mostly does care of stalls but he does all the repairs of fences etc. Feels like got bent over more in the last year. First started getting back pain and leg issues about 3 years ago. did have neck surgery and was helping friend get horse in trailer and slipped on ice and fell on neck, head and shulder and was paralyzed for 24 hours in legs and arms gradually got movement back. had to be taken by ambulance to [facility]. C3-4 fusion and vertebral replacement (ant and post) performed at [facility] for emergency surgery may 14, 2009, (injury was Apr 27 2008) . During recovery process was very restricted for 5 months. Did have coordination issues after surgery and hasn't gotten full recovery of RUE. this has affected his leg coordination. Another occasion where he cracked a vertebra in back and thinks this may have contributed to stenosis in back. Does report he has BLT restrictiona nd adheres to lifting restrictions, but does feel like it is hard to avoid bending and twisting Treatment Goals Patient/Caregiver Goals Improve walking ability and be able mount his horse and ride again. PT-OP-C Subjective Start: 04/25/24 10:29 Freq: Status: Active Protocol: Document 06/09/24 12:24 [facility] (Rec: 05/30/24 10:50 [facility] [id number]) OP-PT Subjective Patient Comments Patient Comments Slow to get started in AM. He uses his exercises to limber up in the AM. Sees a gradual improvment PT-OP-D Balance Start: 04/25/24 10:29 Freq: Status: Active Protocol: Document 05/04/24 09:45 [facility] (Rec: 05/04/24 10:51 [facility] [id number]) Balance Tests Single Limb Standing Single Limb- Right able to lift leg only Single Limb- Left able to lift leg only PT-OP-E Functional Tests Start: 05/04/24 12:27 Freq: Status: Active Protocol: Document 06/09/24 12:24 [facility] (Rec: 05/30/24 10:50 [facility] [id number]) Functional Tests Dynamic Gait Index (DGI) Score PT-OP-F Manual Assessment Start: 04/25/24 10:29 Freq: Status: Active Protocol: Document 05/04/24 09:45 [facility] (Rec: 05/04/24 10:51 [facility] [id number]) Manual Assessments Joint Mobility Assessment Joint Mobility Assessment significant lack of hip mobility PT-OP-G Mobility & Gait Start: 04/25/24 10:29 Freq: Status: Active Protocol: Document 05/04/24 09:45 [facility] (Rec: 05/04/24 10:51 [facility] [id number]) OP Gait Assessment Comments Gait Comments flexed trunk, dec RLE stance time, dec B foot clearance, lat L lean w/WB on LLE PT-OP-J Posture/Palpation/Skin Start: 04/25/24 10:29 Freq: Status: Active Protocol: Document 06/09/24 12:24 [facility] (Rec: 05/30/24 10:50 [facility] [id number]) Posture Evaluation [facility] Postural Classification System Lumbar Protective Mechanism Left AP 0 Lumbar Protective Mechanism Right AP 0 Lumbar Protective Mechanism Left PA 0 Lumbar Protective Mechanism Right PA 0 PT-OP-K Range of Motion Start: 04/25/24 10:29 Freq: Status: Active Protocol: Document 05/04/24 09:45 [facility] (Rec: 05/04/24 10:51 [facility] [id number]) Lumbar Spine Range of Motion Lumbar Spine Active Percentage Comments n/t d/t restrictions PT-OP-L Special Tests Start: 04/25/24 10:29 Freq: Status: Active Protocol: Document 05/04/24 09:45 [facility] (Rec: 05/04/24 10:51 [facility] [id number]) Special Tests Lumbar Spine Special Tests SLR Test Results R>L HS tightness Slump Test Results neg -dec HS length Other Special Tests Special Tests tone noted in RLE PT-OP-M Strength Start: 04/25/24 10:29 Freq: Status: Active Protocol: Document 05/30/24 09:47 [facility] (Rec: 05/30/24 10:50 [facility] [id number]) Hip Strength Hip Manual Muscle Testing Right Flexion (L2) 4- Good- Abduction 3+ Fair+ External Rotation 3+ Fair+ Internal Rotation 3+ Fair+ Left Flexion (L2) 4 Good Abduction 4- Good- External Rotation 4- Good- Internal Rotation 4 Good Knee Strength Knee Manual Muscle Testing Right Flexion (S2) 4- Good- Extension (L3) 4+ Good+ Left Flexion (S2) 4 Good Extension (L3) 5 Normal Ankle/Foot Strength Ankle and Foot Manual Muscle Testing Right Dorsiflexion (L4) 4 Good Plantarflexion (S1) 4+ Good+ Left Dorsiflexion (L4) 4 Good Plantarflexion (S1) 4+ Good+ Comments PF tested seated B PT-OP-T Assessment and Plan Start: 04/25/24 10:29 Freq: Status: Active Protocol: Document 06/09/24 12:24 [facility] (Rec: 05/30/24 10:50 [facility] [id number]) Physical Therapy Assessment Goals balance Impairment DGI 11/17 Short Term Goal (STG) Pt will improve DGI to at least 13 to dec fall risk STG Duration achieved 2/3 Research Management Associate Goal (LTG) Pt will improve DGI to at least 18 to dec fall risk LTG Duration 4/2 activity Research Management Associate Goal (LTG) Pt will be able to ride horse and participate in all care of property. 2/3-feels stronger on the property and getting back to full work, hasn't rode a horse LTG Duration 4/2 strength Short Term Goal (STG) Pt will be indep w/HEP STG Duration achieved advancing as able Research Management Associate Goal (LTG) Pt will score at least 4+/5 on all BLE MMT and at least 3/5 on LPM to show improved stability to allow greater ease w/typical activities. 2/3-improving LE strength LTG Duration 4/2 Assessment Summary Assessment Pt demonstrating improved balance and strength overall and cont to progress w/ PT w/ these activities. Cont PT to improve strength, balance and overall function. Able to advance exercises for home today Physical Therapy Plan Frequency and Duration Frequency of Treatment 2x/Week Duration of treatment (weeks) 12 Plan of Care Start Date 05/04/24 Plan of Care End Date 07/27/24 Therapeutic Interventions Therapeutic Interventions Balance Training,Coordination Training,Gait Training,Home Exercise Program,Joint Mobilizations,Manual Therapy, Neuromuscular Re-education, Orthotic/Prosthetic Management ,Patient/Caregiver Education, Self-Care/Home Management,Soft Tissue Mobilization,Taping, Therapeutic Activities, Therapeutic Exercises Modalities Cold Pack/Ice Massage,Electric Stimulation,Hot Packs, Infrared Therapy,Ultrasound Next Visit Focus/Plan Next Note Type Treatment Note Next Visit Plan Review and advance furtherHEP and advance as able: sit to stands, paloff press, supine core, hip strengthening Balance: shuttle balance, hurdles, foam manual and needed PNF
--- NOTE | 2024-06-01 10:29 | PT.OTN ---
Current Diagnoses Spinal stenosis, lumbar region with neurogenic claudication (06/01/24) Postlaminectomy syndrome, not elsewhere classified (06/01/24) Other abnormalities of gait and mobility (06/01/24) Abnormal posture (06/01/24) Weakness (06/01/24) Physical Therapy Treatment Note PT-OP-A Visit Information Start: 04/25/24 10:29 Freq: Status: Active Protocol: Document 06/01/24 09:51 [facility] (Rec: 06/01/24 10:37 [facility] [id number]) Out-Patient Physical Therapy Visit Information Visit Information Visit Type Treatment Note Visit Start Time 09:51 Visit Stop Time 10:29 Visit Number 6/ Number of PSYCHIATRIC ORDERLY Visits 1 Precautions Precautions no twisting, bending, lifting >10 lbs -sees doctor tomorrow PT-OP-B Current Condition Start: 04/25/24 10:29 Freq: Status: Active Protocol: Document 05/04/24 09:45 [facility] (Rec: 05/04/24 10:51 [facility] [id number]) Current Condition History of Current Condition Onset Date Mar 2 Current Complaints lami L4-5 History of Current Condition Pt had laminectomy L4-5 Dec 2 d/t could hardly bent L leg. Took care of flexiblity issues but is still very still when first gets up. no more pain down leg. Pt reports doens't ahve much pain but feels stiff when standing a long time. Pt reports has to walk slowly to not lose balance. He feels like over the past 3 years he has had a gradual dec in balance and ability to respond to uneven ground. Got to the point where he hasn't been able to ride horses for 3 years and has not been able to paly w/grandkids. 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 Has 7 of own horses and board 3 other horses but has a second language tutor on the property to care of the horses for 15 days a month. Mostly does care of stalls but he does all the repairs of fences etc. Feels like got bent over more in the last year. First started getting back pain and leg issues about 3 years ago. did have neck surgery and was helping friend get horse in trailer and slipped on ice and fell on neck, head and shulder and was paralyzed for 24 hours in legs and arms gradually got movement back. had to be taken by ambulance to [facility]. C3-4 fusion and vertebral replacement (ant and post) performed at [facility] for emergency surgery may 14, 2009, (injury was Apr 27 2008) . During recovery process was very restricted for 5 months. Did have coordination issues after surgery and hasn't gotten full recovery of RUE. this has affected his leg coordination. Another occasion where he cracked a vertebra in back and thinks this may have contributed to stenosis in back. Does report he has BLT restrictiona nd adheres to lifting restrictions, but does feel like it is hard to avoid bending and twisting Treatment Goals Patient/Caregiver Goals Improve walking ability and be able mount his horse and ride again. PT-OP-C Subjective Start: 04/25/24 10:29 Freq: Status: Active Protocol: Document 06/01/24 09:51 [facility] (Rec: 06/01/24 10:37 [facility] [id number]) OP-PT Subjective Patient Comments Patient Comments Pt reports felt good loosening up after last tx. HE reported increased resistance last tx was harder but no pain. He reports is considering returning to [employer] for recumbent elliptical and cable machines. PT-OP-D Balance Start: 04/25/24 10:29 Freq: Status: Active Protocol: Document 05/04/24 09:45 [facility] (Rec: 05/04/24 10:51 [facility] [id number]) Balance Tests Single Limb Standing Single Limb- Right able to lift leg only Single Limb- Left able to lift leg only PT-OP-E Functional Tests Start: 05/04/24 12:27 Freq: Status: Active Protocol: Document 05/30/24 09:47 [facility] (Rec: 05/30/24 10:50 [facility] [id number]) Functional Tests Dynamic Gait Index (DGI) Score PT-OP-F Manual Assessment Start: 04/25/24 10:29 Freq: Status: Active Protocol: Document 05/04/24 09:45 [facility] (Rec: 05/04/24 10:51 [facility] [id number]) Manual Assessments Joint Mobility Assessment Joint Mobility Assessment significant lack of hip mobility PT-OP-G Mobility & Gait Start: 04/25/24 10:29 Freq: Status: Active Protocol: Document 05/04/24 09:45 [facility] (Rec: 05/04/24 10:51 [facility] [id number]) OP Gait Assessment Comments Gait Comments flexed trunk, dec RLE stance time, dec B foot clearance, lat L lean w/WB on LLE PT-OP-J Posture/Palpation/Skin Start: 04/25/24 10:29 Freq: Status: Active Protocol: Document 05/30/24 09:47 [facility] (Rec: 05/30/24 10:50 [facility] [id number]) Posture Evaluation [facility] Postural Classification System Lumbar Protective Mechanism Left AP 0 Lumbar Protective Mechanism Right AP 0 Lumbar Protective Mechanism Left PA 0 Lumbar Protective Mechanism Right PA 0 PT-OP-K Range of Motion Start: 04/25/24 10:29 Freq: Status: Active Protocol: Document 05/04/24 09:45 [facility] (Rec: 05/04/24 10:51 [facility] [id number]) Lumbar Spine Range of Motion Lumbar Spine Active Percentage Comments n/t d/t restrictions PT-OP-L Special Tests Start: 04/25/24 10:29 Freq: Status: Active Protocol: Document 05/04/24 09:45 [facility] (Rec: 05/04/24 10:51 [facility] [id number]) Special Tests Lumbar Spine Special Tests SLR Test Results R>L HS tightness Slump Test Results neg -dec HS length Other Special Tests Special Tests tone noted in RLE PT-OP-M Strength Start: 04/25/24 10:29 Freq: Status: Active Protocol: Document 05/30/24 09:47 [facility] (Rec: 05/30/24 10:50 [facility] [id number]) Hip Strength Hip Manual Muscle Testing Right Flexion (L2) 4- Good- Abduction 3+ Fair+ External Rotation 3+ Fair+ Internal Rotation 3+ Fair+ Left Flexion (L2) 4 Good Abduction 4- Good- External Rotation 4- Good- Internal Rotation 4 Good Knee Strength Knee Manual Muscle Testing Right Flexion (S2) 4- Good- Extension (L3) 4+ Good+ Left Flexion (S2) 4 Good Extension (L3) 5 Normal Ankle/Foot Strength Ankle and Foot Manual Muscle Testing Right Dorsiflexion (L4) 4 Good Plantarflexion (S1) 4+ Good+ Left Dorsiflexion (L4) 4 Good Plantarflexion (S1) 4+ Good+ Comments PF tested seated B PT-OP-Q Treatments Start: 04/25/24 10:29 Freq: Status: Active Protocol: Document 06/01/24 09:51 [facility] (Rec: 06/01/24 10:37 [facility] [id number]) Gym Equipment Shuttle Recovery unilateral squat Resistance 50# 2 navy bands Reps/Time 10 reps each LE Bilateral Squats Details occ cue knee alignment with mid foot see inside ankles Resistance 75 # 3 navy bands Reps/Time 15 reps Therapeutic Exercises Standing Exercises resisted side stepping Standing Exercise Name trialed In PT Side bilateral Resistance Teal #2 at shins Equipment Used rail support Reps/Minutes 10 ft x2 laps Comments cued posture and 1 UE contact, DF & trail LE knee flex ft clearance hip abd Standing Exercise Name HEP reviewed Side bilateral Resistance L2 teal at shins Equipment Used rail support BUE Reps/Minutes 10 reps alt Comments cues taller posture paloff press Standing Exercise Name reviewed Side bilateral Resistance anchored on bansiter Equipment Used Lvl-1 light blue home(2 bands double orange in PT)- Reps/Minutes 15 Comments cued tall posturing, WBOS sit to stand Standing Exercise Name HEP reviewed Side bilateral Equipment Used hands on knee 1st 2 then needed 1 chair arm rest Reps/Minutes 10 Comments Cued Hip hinge Gait Training Gait Activity stair mgt Device Used L outside stairs rail Level of Assistance S Comments enter out garage: 2 steps handle on R (verticle) Out front brick steps no rails - 6 step R HR, step to x4 reps. Neuro Re-Education Treatment Balance Activities step taps Comments AROM, 6 step, near outside stairs rail PRN contact (1/20 reps alternating), toe caught x1 self recovery contact rail. foam Equipment foam, near outside stairs rail PRN Comments WBOS- HTs, EC 30 sec Stride Stance- 3 btwn BLE- HTs, EC 30 sec each ft position -noted very light touch rail awareness where body is in space. PT-OP-T Assessment and Plan Start: 04/25/24 10:29 Freq: Status: Active Protocol: Document 06/01/24 09:51 [facility] (Rec: 06/01/24 10:37 [facility] [id number]) Physical Therapy Assessment Goals balance Impairment DGI 11/17 Short Term Goal (STG) Pt will improve DGI to at least 13 to dec fall risk STG Duration achieved 2/3 Shelter Goal (LTG) Pt will improve DGI to at least 18 to dec fall risk LTG Duration 4/2 activity En[employer] Sprayer Goal (LTG) Pt will be able to ride horse and participate in all care of property. 2/3-feels stronger on the property and getting back to full work, hasn't rode a horse LTG Duration 4/2 strength Short Term Goal (STG) Pt will be indep w/HEP STG Duration achieved advancing as able Shelter Goal (LTG) Pt will score at least 4+/5 on all BLE MMT and at least 3/5 on LPM to show improved stability to allow greater ease w/typical activities. 2/3-improving LE strength LTG Duration 4/2 Assessment Summary Assessment Pt required increased support 1 UE on chair arm 3-10th rep ( performed after standing and shuttle recovery). Improved progression foam stance balance HTs (limited CS rot R) and EC no sways or LOB. S stair mgt BUE on 1 rail support enter/exit 6 step asses home garage enterance. Physical Therapy Plan Frequency and Duration Frequency of Treatment 2x/Week Duration of treatment (weeks) 12 Plan of Care Start Date 05/04/24 Plan of Care End Date 07/27/24 Therapeutic Interventions Therapeutic Interventions Balance Training,Coordination Training,Gait Training,Home Exercise Program,Joint Mobilizations,Manual Therapy, Neuromuscular Re-education, Orthotic/Prosthetic Management ,Patient/Caregiver Education, Self-Care/Home Management,Soft Tissue Mobilization,Taping, Therapeutic Activities, Therapeutic Exercises Modalities Cold Pack/Ice Massage,Electric Stimulation,Hot Packs, Infrared Therapy,Ultrasound Next Visit Focus/Plan Next Note Type Treatment Note Next Visit Plan Review and advance further HEP and advance as able: sit to stands, paloff press, supine core, hip strengthening Balance: shuttle balance, hurdles, foam, step taps add leg wt, sport cord. manual and needed PNF
--- NOTE | 2024-06-07 10:36 | PT.OTN ---
Current Diagnoses Spinal stenosis, lumbar region with neurogenic claudication (06/07/24) Postlaminectomy syndrome, not elsewhere classified (06/07/24) Other abnormalities of gait and mobility (06/07/24) Abnormal posture (06/07/24) Weakness (06/07/24) Physical Therapy Treatment Note PT-OP-A Visit Information Start: 04/25/24 10:29 Freq: Status: Active Protocol: Document 06/07/24 09:55 SP (Rec: 06/07/24 10:41 SP [id number]) Out-Patient Physical Therapy Visit Information Visit Information Visit Type Treatment Note Visit Note PN in 3 visits 10th visit Visit Start Time 09:55 Visit Stop Time 10:36 Visit Number 7/ (16 approved visits) Number of CREDIT ADJUSTER Visits 2 Precautions Precautions no twisting, bending, lifting >10 lbs -sees doctor tomorrow PT-OP-B Current Condition Start: 04/25/24 10:29 Freq: Status: Active Protocol: Document 05/04/24 09:45 [facility] (Rec: 05/04/24 10:51 [facility] [id number]) Current Condition History of Current Condition Onset Date Dec 2 Current Complaints lami L4-5 History of Current Condition Pt had laminectomy L4-5 Dec 2 d/t could hardly bent L leg. Took care of flexiblity issues but is still very still when first gets up. no more pain down leg. Pt reports doens't ahve much pain but feels stiff when standing a long time. Pt reports has to walk slowly to not lose balance. He feels like over the past 3 years he has had a gradual dec in balance and ability to respond to uneven ground. Got to the point where he hasn't been able to ride horses for 3 years and has not been able to paly w/grandkids. 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 Has 7 of own horses and board 3 other horses but has a hide inspector on the property to care of the horses for 15 days a month. Mostly does care of stalls but he does all the repairs of fences etc. Feels like got bent over more in the last year. First started getting back pain and leg issues about 3 years ago. did have neck surgery and was helping friend get horse in trailer and slipped on ice and fell on neck, head and shulder and was paralyzed for 24 hours in legs and arms gradually got movement back. had to be taken by ambulance to [facility]. C3-4 fusion and vertebral replacement (ant and post) performed at [facility] for emergency surgery may 14, 2009, (injury was Apr 27 2008) . During recovery process was very restricted for 5 months. Did have coordination issues after surgery and hasn't gotten full recovery of RUE. this has affected his leg coordination. Another occasion where he cracked a vertebra in back and thinks this may have contributed to stenosis in back. Does report he has BLT restrictiona nd adheres to lifting restrictions, but does feel like it is hard to avoid bending and twisting Treatment Goals Patient/Caregiver Goals Improve walking ability and be able mount his horse and ride again. PT-OP-C Subjective Start: 04/25/24 10:29 Freq: Status: Active Protocol: Document 06/07/24 09:55 SP (Rec: 06/07/24 10:41 SP [id number]) OP-PT Subjective Patient Comments Patient Comments Pt reports little stiff this am and cautious of ground. He stated will go to the gym [employer] later today: LE press (row machine), supine pull down. OOT Jun 6-12. PT-OP-D Balance Start: 04/25/24 10:29 Freq: Status: Active Protocol: Document 05/04/24 09:45 [facility] (Rec: 05/04/24 10:51 [facility] [id number]) Balance Tests Single Limb Standing Single Limb- Right able to lift leg only Single Limb- Left able to lift leg only PT-OP-E Functional Tests Start: 05/04/24 12:27 Freq: Status: Active Protocol: Document 05/30/24 09:47 [facility] (Rec: 05/30/24 10:50 [facility] [id number]) Functional Tests Dynamic Gait Index (DGI) Score PT-OP-F Manual Assessment Start: 04/25/24 10:29 Freq: Status: Active Protocol: Document 05/04/24 09:45 [facility] (Rec: 05/04/24 10:51 [facility] [id number]) Manual Assessments Joint Mobility Assessment Joint Mobility Assessment significant lack of hip mobility PT-OP-G Mobility & Gait Start: 04/25/24 10:29 Freq: Status: Active Protocol: Document 05/04/24 09:45 [facility] (Rec: 05/04/24 10:51 [id number] OP Gait Assessment Comments Gait Comments flexed trunk, dec RLE stance time, dec B foot clearance, lat L lean w/WB on LLE PT-OP-J Posture/Palpation/Skin Start: 04/25/24 10:29 Freq: Status: Active Protocol: Document 05/30/24 09:47 [facility] (Rec: 05/30/24 10:50 [id number] Posture Evaluation [facility] Postural Classification System Lumbar Protective Mechanism Left AP 0 Lumbar Protective Mechanism Right AP 0 Lumbar Protective Mechanism Left PA 0 Lumbar Protective Mechanism Right PA 0 PT-OP-K Range of Motion Start: 04/25/24 10:29 Freq: Status: Active Protocol: Document 05/04/24 09:45 [facility] (Rec: 05/04/24 10:51 [facility] [id number]) Lumbar Spine Range of Motion Lumbar Spine Active Percentage Comments n/t d/t restrictions PT-OP-L Special Tests Start: 04/25/24 10:29 Freq: Status: Active Protocol: Document 05/04/24 09:45 [facility] (Rec: 05/04/24 10:51 [id number] Special Tests Lumbar Spine Special Tests SLR Test Results R>L HS tightness Slump Test Results neg -dec HS length Other Special Tests Special Tests tone noted in RLE PT-OP-M Strength Start: 04/25/24 10:29 Freq: Status: Active Protocol: Document 05/30/24 09:47 [facility] (Rec: 05/30/24 10:50 [facility] [id number]) Hip Strength Hip Manual Muscle Testing Right Flexion (L2) 4- Good- Abduction 3+ Fair+ External Rotation 3+ Fair+ Internal Rotation 3+ Fair+ Left Flexion (L2) 4 Good Abduction 4- Good- External Rotation 4- Good- Internal Rotation 4 Good Knee Strength Knee Manual Muscle Testing Right Flexion (S2) 4- Good- Extension (L3) 4+ Good+ Left Flexion (S2) 4 Good Extension (L3) 5 Normal Ankle/Foot Strength Ankle and Foot Manual Muscle Testing Right Dorsiflexion (L4) 4 Good Plantarflexion (S1) 4+ Good+ Left Dorsiflexion (L4) 4 Good Plantarflexion (S1) 4+ Good+ Comments PF tested seated B PT-OP-Q Treatments Start: 04/25/24 10:29 Freq: Status: Active Protocol: Document 06/07/24 09:55 SP (Rec: 06/07/24 10:41 SP [id number]) Cardio Equipment Recumbent Bicycle Duration (Minutes) 3 Resistance 4 Seat Position 6 Other 35 RPM- trial for set up for return to Gym Bike Gym Equipment Shuttle Recovery unilateral squat Details unlocked to allow assimulation at gym guero range can, heel press glut/hip ef Resistance 50# 2 navy bands Reps/Time 15 reps each LE Bilateral Squats Details improved knee alignment Resistance 75 # 3 navy bands Reps/Time 2x 15 reps Manual Therapy Treatment Consent Patient gave verbal consent for manual Yes treatment Joint Mobilizations B hips Comments strap anteromedial from across table MWM hip ER AROM, PROM hip flexion stretch PT-OP-T Assessment and Plan Start: 04/25/24 10:29 Freq: Status: Active Protocol: Document 06/07/24 09:55 SP (Rec: 06/07/24 10:41 SP [id number]) Physical Therapy Assessment Goals balance Impairment DGI 11/17 Short Term Goal (STG) Pt will improve DGI to at least 13 to dec fall risk STG Duration achieved 2/3 Commodity Loan Clerk Goal (LTG) Pt will improve DGI to at least 18 to dec fall risk LTG Duration 4/2 activity Intermediate Goal (LTG) Pt will be able to ride horse and participate in all care of property. 2/3-feels stronger on the property and getting back to full work, hasn't rode a horse LTG Duration 4/2 strength Short Term Goal (STG) Pt will be indep w/HEP STG Duration achieved advancing as able Commodity Loan Clerk Goal (LTG) Pt will score at least 4+/5 on all BLE MMT and at least 3/5 on LPM to show improved stability to allow greater ease w/typical activities. 2/3-improving LE strength LTG Duration 4/2 Assessment Summary Assessment Pt decreased low back and hip stiffness post manual and stretching. Time spent today review LE equipment for return to gym confidence. Ed for should still talk to staff to show proper set up and use their equipment: leg press, bike, anymore UE/ LE for flexibility and strengthening. Added more appts into Jun 29, going OOT. Physical Therapy Plan Frequency and Duration Frequency of Treatment 2x/Week Duration of treatment (weeks) 12 Plan of Care Start Date 05/04/24 Plan of Care End Date 07/27/24 Therapeutic Interventions Therapeutic Interventions Balance Training,Coordination Training,Gait Training,Home Exercise Program,Joint Mobilizations,Manual Therapy, Neuromuscular Re-education, Orthotic/Prosthetic Management ,Patient/Caregiver Education, Self-Care/Home Management,Soft Tissue Mobilization,Taping, Therapeutic Activities, Therapeutic Exercises Modalities Cold Pack/Ice Massage,Electric Stimulation,Hot Packs, Infrared Therapy,Ultrasound Next Visit Focus/Plan Next Note Type Treatment Note Next Visit Plan PN in 3 visits, 10th visit, 9 more approved visits. Aske if returned to gym, any questions . POC: Review and advance further HEP and advance as able: sit to stands, paloff press, supine core, hip strengthening Balance: shuttle balance, hurdles, foam, step taps add leg wt, sport cord. manual and needed PNF
--- NOTE | 2024-06-09 12:23 | PT.OTN ---
Current Diagnoses Spinal stenosis, lumbar region with neurogenic claudication (06/09/24) Postlaminectomy syndrome, not elsewhere classified (06/09/24) Other abnormalities of gait and mobility (06/09/24) Abnormal posture (06/09/24) Weakness (06/09/24) Physical Therapy Treatment Note PT-OP-A Visit Information Start: 04/25/24 10:29 Freq: Status: Active Protocol: Document 06/09/24 11:32 [facility] (Rec: 06/09/24 12:23 [facility] [id number]) Out-Patient Physical Therapy Visit Information Visit Information Visit Type Treatment Note Visit Start Time 11:37 Visit Stop Time 12:16 Visit Number 816 Number of BOILER PLANT WORKER Visits 0 PT-OP-B Current Condition Start: 04/25/24 10:29 Freq: Status: Active Protocol: Document 05/04/24 09:45 [facility] (Rec: 05/04/24 10:51 [facility] [id number]) Current Condition History of Current Condition Onset Date Mar 2 Current Complaints lami L4-5 History of Current Condition Pt had laminectomy L4-5 Dec 2 d/t could hardly bent L leg. Took care of flexiblity issues but is still very still when first gets up. no more pain down leg. Pt reports doens't ahve much pain but feels stiff when standing a long time. Pt reports has to walk slowly to not lose balance. He feels like over the past 3 years he has had a gradual dec in balance and ability to respond to uneven ground. Got to the point where he hasn't been able to ride horses for 3 years and has not been able to paly w/grandkids. 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 He does a lot of the work on this [employer]. Has 7 of own horses and board 3 other horses but has a production mechanic tin cans on the property to care of the horses for 15 days a month. Mostly does care of stalls but he does all the repairs of fences etc. Feels like got bent over more in the last year. First started getting back pain and leg issues about 3 years ago. did have neck surgery and was helping friend get horse in trailer and slipped on ice and fell on neck, head and shulder and was paralyzed for 24 hours in legs and arms gradually got movement back. had to be taken by ambulance to [facility]. C3-4 fusion and vertebral replacement (ant and post) performed at [facility] for emergency surgery may 14, 2009, (injury was Apr 27 2008) . During recovery process was very restricted for 5 months. Did have coordination issues after surgery and hasn't gotten full recovery of RUE. this has affected his leg coordination. Another occasion where he cracked a vertebra in back and thinks this may have contributed to stenosis in back. Does report he has BLT restrictiona nd adheres to lifting restrictions, but does feel like it is hard to avoid bending and twisting Treatment Goals Patient/Caregiver Goals Improve walking ability and be able mount his horse and ride again. PT-OP-C Subjective Start: 04/25/24 10:29 Freq: Status: Active Protocol: Document 06/09/24 11:32 [facility] (Rec: 06/09/24 12:23 [facility] [id number]) OP-PT Subjective Patient Comments Patient Comments Pt reports he has been going to the gym and doing bike and leg press. no questiosn today PT-OP-D Balance Start: 04/25/24 10:29 Freq: Status: Active Protocol: Document 05/04/24 09:45 [facility] (Rec: 05/04/24 10:51 [facility] [id number]) Balance Tests Single Limb Standing Single Limb- Right able to lift leg only Single Limb- Left able to lift leg only PT-OP-E Functional Tests Start: 05/04/24 12:27 Freq: Status: Active Protocol: Document 05/30/24 09:47 [facility] (Rec: 05/30/24 10:50 [facility] [id number]) Functional Tests Dynamic Gait Index (DGI) Score PT-OP-F Manual Assessment Start: 04/25/24 10:29 Freq: Status: Active Protocol: Document 05/04/24 09:45 [facility] (Rec: 05/04/24 10:51 [facility] [id number]) Manual Assessments Joint Mobility Assessment Joint Mobility Assessment significant lack of hip mobility PT-OP-G Mobility & Gait Start: 04/25/24 10:29 Freq: Status: Active Protocol: Document 05/04/24 09:45 [facility] (Rec: 05/04/24 10:51 [facility] [id number]) OP Gait Assessment Comments Gait Comments flexed trunk, dec RLE stance time, dec B foot clearance, lat L lean w/WB on LLE PT-OP-J Posture/Palpation/Skin Start: 04/25/24 10:29 Freq: Status: Active Protocol: Document 05/30/24 09:47 [facility] (Rec: 05/30/24 10:50 [facility] [id number]) Posture Evaluation [facility] Postural Classification System Lumbar Protective Mechanism Left AP 0 Lumbar Protective Mechanism Right AP 0 Lumbar Protective Mechanism Left PA 0 Lumbar Protective Mechanism Right PA 0 PT-OP-K Range of Motion Start: 04/25/24 10:29 Freq: Status: Active Protocol: Document 05/04/24 09:45 [facility] (Rec: 05/04/24 10:51 [facility] [id number]) Lumbar Spine Range of Motion Lumbar Spine Active Percentage Comments n/t d/t restrictions PT-OP-L Special Tests Start: 04/25/24 10:29 Freq: Status: Active Protocol: Document 05/04/24 09:45 [facility] (Rec: 05/04/24 10:51 [facility] [id number]) Special Tests Lumbar Spine Special Tests SLR Test Results R>L HS tightness Slump Test Results neg -dec HS length Other Special Tests Special Tests tone noted in RLE PT-OP-M Strength Start: 04/25/24 10:29 Freq: Status: Active Protocol: Document 05/30/24 09:47 [facility] (Rec: 05/30/24 10:50 [facility] [id number]) Hip Strength Hip Manual Muscle Testing Right Flexion (L2) 4- Good- Abduction 3+ Fair+ External Rotation 3+ Fair+ Internal Rotation 3+ Fair+ Left Flexion (L2) 4 Good Abduction 4- Good- External Rotation 4- Good- Internal Rotation 4 Good Knee Strength Knee Manual Muscle Testing Right Flexion (S2) 4- Good- Extension (L3) 4+ Good+ Left Flexion (S2) 4 Good Extension (L3) 5 Normal Ankle/Foot Strength Ankle and Foot Manual Muscle Testing Right Dorsiflexion (L4) 4 Good Plantarflexion (S1) 4+ Good+ Left Dorsiflexion (L4) 4 Good Plantarflexion (S1) 4+ Good+ Comments PF tested seated B PT-OP-Q Treatments Start: 04/25/24 10:29 Freq: Status: Active Protocol: Document 06/09/24 11:32 [facility] (Rec: 06/09/24 12:23 [facility] [id number]) Therapeutic Exercises Supine Exercises stretch Supine Exercise Name HS Side bilateral Reps/Minutes 1 min ea adductor stretch] Supine Exercise Name strap Side bilateral Reps/Minutes 1 min ea Standing Exercises hip rotation Standing Exercise Name 1.fwd circles 2. backwards circles Side bilateral Equipment Used rail Reps/Minutes 12 ea Comments cues posture step up Standing Exercise Name 1. fwd 2. lat Side bilateral Equipment Used rail cues light touch only Reps/Minutes 10 ea resisted side stepping Side bilateral Resistance Teal #2 at shins Equipment Used rail support Reps/Minutes 20 ft x2 laps resisted walk Standing Exercise Name fwd/back Side bilateral Equipment Used lvl 2 at shins, PRN contact rail Reps/Minutes 20ft x2 Comments cued posture, increase KEVIN, trail LE clearance, back R knee flexion Manual Therapy Treatment Consent Patient gave verbal consent for manual Yes treatment Soft Tissue Mobilization hips Body Location R add, HS Mobilization Type Rolling Comments w/hip flex/ER Joint Mobilizations B hips Comments R inf and free the ball ER c/r PT-OP-T Assessment and Plan Start: 04/25/24 10:29 Freq: Status: Active Protocol: Document 06/09/24 11:32 [facility] (Rec: 06/09/24 12:23 [facility] [id number]) Physical Therapy Assessment Goals balance Impairment DGI 11/17 Short Term Goal (STG) Pt will improve DGI to at least 13 to dec fall risk STG Duration achieved 2/3 Long-Term Goal (LTG) Pt will improve DGI to at least 18 to dec fall risk LTG Duration 4/2 activity Veterinary Dentist Goal (LTG) Pt will be able to ride horse and participate in all care of property. 2/3-feels stronger on the property and getting back to full work, hasn't rode a horse LTG Duration 4/2 strength Short Term Goal (STG) Pt will be indep w/HEP STG Duration achieved advancing as able Long-Term Goal (LTG) Pt will score at least 4+/5 on all BLE MMT and at least 3/5 on LPM to show improved stability to allow greater ease w/typical activities. 2/3-improving LE strength LTG Duration 4/2 Assessment Summary Assessment Pt did well with exercises and was challenged by exercises today. Encouraged to stretch w /strap to improve his flexiblity. Physical Therapy Plan Frequency and Duration Frequency of Treatment 2x/Week Duration of treatment (weeks) 12 Plan of Care Start Date 05/04/24 Plan of Care End Date 07/27/24 Therapeutic Interventions Therapeutic Interventions Balance Training,Coordination Training,Gait Training,Home Exercise Program,Joint Mobilizations,Manual Therapy, Neuromuscular Re-education, Orthotic/Prosthetic Management ,Patient/Caregiver Education, Self-Care/Home Management,Soft Tissue Mobilization,Taping, Therapeutic Activities, Therapeutic Exercises Modalities Cold Pack/Ice Massage,Electric Stimulation,Hot Packs, Infrared Therapy,Ultrasound Next Visit Focus/Plan Next Note Type Treatment Note Next Visit Plan core and hip strengthening Balance: shuttle balance, hurdles, foam, step taps add leg wt, sport cord. manual and needed PNF
--- NOTE | 2024-06-15 15:14 | PT.OTN ---
Current Diagnoses Spinal stenosis, lumbar region with neurogenic claudication (06/15/24) Postlaminectomy syndrome, not elsewhere classified (06/15/24) Other abnormalities of gait and mobility (06/15/24) Abnormal posture (06/15/24) Weakness (06/15/24) Physical Therapy Treatment Note PT-OP-A Visit Information Start: 04/25/24 10:29 Freq: Status: Active Protocol: Document 06/15/24 14:29 SP (Rec: 06/15/24 15:42 SP [id number]) Out-Patient Physical Therapy Visit Information Visit Information Visit Type Treatment Note Visit Start Time 14:29 Visit Stop Time 15:14 Visit Number 9/16 approved Number of RETAIL CUSTODIAL ASSOCIATE Visits 1 Precautions Precautions no twisting, bending, lifting >10 lbs -sees doctor tomorrow PT-OP-B Current Condition Start: 04/25/24 10:29 Freq: Status: Active Protocol: Document 05/04/24 09:45 [facility] (Rec: 05/04/24 10:51 [facility] [id number]) Current Condition History of Current Condition Onset Date Mar 2 Current Complaints lami L4-5 History of Current Condition Pt had laminectomy L4-5 Dec 2 d/t could hardly bent L leg. Took care of flexiblity issues but is still very still when first gets up. no more pain down leg. Pt reports doens't ahve much pain but feels stiff when standing a long time. Pt reports has to walk slowly to not lose balance. He feels like over the past 3 years he has had a gradual dec in balance and ability to respond to uneven ground. Got to the point where he hasn't been able to ride horses for 3 years and has not been able to paly w/grandkids. 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 Mostly does care of stalls but he does all the repairs of fences etc. Feels like got bent over more in the last year. First started getting back pain and leg issues about 3 years ago. did have neck surgery and was helping friend get horse in trailer and slipped on ice and fell on neck, head and shulder and was paralyzed for 24 hours in legs and arms gradually got movement back. had to be taken by ambulance to [facility]. C3-4 fusion and vertebral replacement (ant and post) performed at [facility] for emergency surgery may 14, 2009, (injury was Apr 27 2008) . During recovery process was very restricted for 5 months. Did have coordination issues after surgery and hasn't gotten full recovery of RUE. this has affected his leg coordination. Another occasion where he cracked a vertebra in back and thinks this may have contributed to stenosis in back. Does report he has BLT restrictiona nd adheres to lifting restrictions, but does feel like it is hard to avoid bending and twisting Treatment Goals Patient/Caregiver Goals Improve walking ability and be able mount his horse and ride again. PT-OP-C Subjective Start: 04/25/24 10:29 Freq: Status: Active Protocol: Document 06/15/24 14:29 SP (Rec: 06/15/24 15:42 SP [id number]) OP-PT Subjective Patient Comments Patient Comments Pt reports adductors little sore, not doing resisted side stepping due to puts tension on adductors at this time. Is using leg press at gym and bike feeling good. PT-OP-D Balance Start: 04/25/24 10:29 Freq: Status: Active Protocol: Document 05/04/24 09:45 [facility] (Rec: 05/04/24 10:51 [facility] [id number]) Balance Tests Single Limb Standing Single Limb- Right able to lift leg only Single Limb- Left able to lift leg only PT-OP-E Functional Tests Start: 05/04/24 12:27 Freq: Status: Active Protocol: Document 05/30/24 12:24 [facility] (Rec: 05/30/24 10:50 [facility] [id number]) Functional Tests Dynamic Gait Index (DGI) Score PT-OP-F Manual Assessment Start: 04/25/24 10:29 Freq: Status: Active Protocol: Document 05/04/24 09:45 [facility] (Rec: 05/04/24 10:51 [facility] [id number]) Manual Assessments Joint Mobility Assessment Joint Mobility Assessment significant lack of hip mobility PT-OP-G Mobility & Gait Start: 04/25/24 10:29 Freq: Status: Active Protocol: Document 05/04/24 09:45 [facility] (Rec: 05/04/24 10:51 [facility] [id number]) OP Gait Assessment Comments Gait Comments flexed trunk, dec RLE stance time, dec B foot clearance, lat L lean w/WB on LLE PT-OP-J Posture/Palpation/Skin Start: 04/25/24 10:29 Freq: Status: Active Protocol: Document 05/30/24 12:24 [facility] (Rec: 05/30/24 10:50 [id number] Posture Evaluation [facility] Postural Classification System Lumbar Protective Mechanism Left AP 0 Lumbar Protective Mechanism Right AP 0 Lumbar Protective Mechanism Left PA 0 Lumbar Protective Mechanism Right PA 0 PT-OP-K Range of Motion Start: 04/25/24 10:29 Freq: Status: Active Protocol: Document 05/04/24 09:45 [facility] (Rec: 05/04/24 10:51 [facility] [id number]) Lumbar Spine Range of Motion Lumbar Spine Active Percentage Comments n/t d/t restrictions PT-OP-L Special Tests Start: 04/25/24 10:29 Freq: Status: Active Protocol: Document 05/04/24 09:45 [facility] (Rec: 05/04/24 10:51 [facility] [id number]) Special Tests Lumbar Spine Special Tests SLR Test Results R>L HS tightness Slump Test Results neg -dec HS length Other Special Tests Special Tests tone noted in RLE PT-OP-M Strength Start: 04/25/24 10:29 Freq: Status: Active Protocol: Document 05/30/24 09:47 [facility] (Rec: 05/30/24 10:50 [facility] [id number]) Hip Strength Hip Manual Muscle Testing Right Flexion (L2) 4- Good- Abduction 3+ Fair+ External Rotation 3+ Fair+ Internal Rotation 3+ Fair+ Left Flexion (L2) 4 Good Abduction 4- Good- External Rotation 4- Good- Internal Rotation 4 Good Knee Strength Knee Manual Muscle Testing Right Flexion (S2) 4- Good- Extension (L3) 4+ Good+ Left Flexion (S2) 4 Good Extension (L3) 5 Normal Ankle/Foot Strength Ankle and Foot Manual Muscle Testing Right Dorsiflexion (L4) 4 Good Plantarflexion (S1) 4+ Good+ Left Dorsiflexion (L4) 4 Good Plantarflexion (S1) 4+ Good+ Comments PF tested seated B PT-OP-Q Treatments Start: 04/25/24 10:29 Freq: Status: Active Protocol: Document 06/15/24 14:29 SP (Rec: 06/15/24 15:42 SP [id number]) Gym Equipment Shuttle Recovery unilateral squat Details unlocked to allow assimulation at gym guero range can, heel press glut/hip ef Resistance 50# 2 navy bands Reps/Time 15 reps each LE Bilateral Squats Details improved knee alignment Resistance 75 # 3 navy bands Reps/Time 2x 15 reps Shuttle Balance red clips Details WBOS 4s f/b/lateral, stride stance: Comments wt shift, HTs Deena<> CG cues for wt shift level board. Therapeutic Exercises Standing Exercises step up Standing Exercise Name fwd/ back down Side bilateral Resistance 4# leg wt, 6 step Equipment Used rail cues light touch only 1 UE Reps/Minutes 10 ea Neuro Re-Education Treatment Balance Activities fwd/bwd stepping Equipment hallway, 1 hand glide rail Comments cued hip and knee flexion, toe heel, even pivot turn return step taps Equipment 4# leg wt, 6 step Comments AROM, 6 step, needed light contact rail today. foam Equipment foam, inside //bars Comments Stride Stance- 2 btwn BLE, HTs, EC 30 sec each ft hurdles Equipment 6 hurdles, hallway Comments 1. fwd reciprocally /c 1 HR x2 2. sidestep /c 1 HR x2 PT-OP-T Assessment and Plan Start: 04/25/24 10:29 Freq: Status: Active Protocol: Document 06/15/24 14:29 SP (Rec: 06/15/24 15:42 SP [id number]) Physical Therapy Assessment Goals balance Impairment DGI 11/17 Short Term Goal (STG) Pt will improve DGI to at least 13 to dec fall risk STG Duration achieved 2/3 Senior Care Goal (LTG) Pt will improve DGI to at least 18 to dec fall risk LTG Duration 4/2 activity Train Master Goal (LTG) Pt will be able to ride horse and participate in all care of property. 2/3-feels stronger on the property and getting back to full work, hasn't rode a horse LTG Duration 4/2 strength Short Term Goal (STG) Pt will be indep w/HEP STG Duration achieved advancing as able Senior Care Goal (LTG) Pt will score at least 4+/5 on all BLE MMT and at least 3/5 on LPM to show improved stability to allow greater ease w/typical activities. 2/3-improving LE strength LTG Duration 07/27 Assessment Summary Assessment Pt improved awareness of R LE hip/knee flexion with cuing during gait fwd heel toe and bwd toe heel ankle patterning then eccentric soft stepping lateral and carryover into use hurdles for range. Ed giving every opportunity to perform RLE re-education hip and knee flexion for foot clearance and decreased hip hike compensations, improves when focused. Physical Therapy Plan Frequency and Duration Frequency of Treatment 2x/Week Duration of treatment (weeks) 12 Plan of Care Start Date 05/04/24 Plan of Care End Date 07/27/24 Therapeutic Interventions Therapeutic Interventions Balance Training,Coordination Training,Gait Training,Home Exercise Program,Joint Mobilizations,Manual Therapy, Neuromuscular Re-education, Orthotic/Prosthetic Management ,Patient/Caregiver Education, Self-Care/Home Management,Soft Tissue Mobilization,Taping, Therapeutic Activities, Therapeutic Exercises Modalities Cold Pack/Ice Massage,Electric Stimulation,Hot Packs, Infrared Therapy,Ultrasound Next Visit Focus/Plan Next Note Type Treatment Note Next Visit Plan Discussed with pt call and see if cancellation to get more visits in 2x/wk. POC: core and hip strengthening Balance: continue shuttle balance, hurdles, foam, step taps add leg wt, sport cord. manual and needed PNF
--- NOTE | 2024-06-17 11:35 | PT.OTN ---
Current Diagnoses Spinal stenosis, lumbar region with neurogenic claudication (06/17/24) Postlaminectomy syndrome, not elsewhere classified (06/17/24) Other abnormalities of gait and mobility (06/17/24) Abnormal posture (06/17/24) Weakness (06/17/24) Physical Therapy Treatment Note PT-OP-A Visit Information Start: 04/25/24 10:29 Freq: Status: Active Protocol: Document 06/17/24 10:45 [facility] (Rec: 06/17/24 11:35 GA[facility] [id number]) Out-Patient Physical Therapy Visit Information Visit Information Visit Type Treatment Note Visit Start Time 10:45 Visit Stop Time 11:30 Visit Number 02/09 approved Number of LINK TRAINER MAINTENANCE WORKER Visits 0 Precautions Precautions no twisting, bending, lifting >10 lbs PT-OP-B Current Condition Start: 04/25/24 10:29 Freq: Status: Active Protocol: Document 05/04/24 09:45 [facility] (Rec: 05/04/24 10:51 [facility] [id number]) Current Condition History of Current Condition Onset Date Mar 2 Current Complaints lami L4-5 History of Current Condition Pt had laminectomy L4-5 Dec 2 d/t could hardly bent L leg. Took care of flexiblity issues but is still very still when first gets up. no more pain down leg. Pt reports doens't ahve much pain but feels stiff when standing a long time. Pt reports has to walk slowly to not lose balance. He feels like over the past 3 years he has had a gradual dec in balance and ability to respond to uneven ground. Got to the point where he hasn't been able to ride horses for 3 years and has not been able to paly w/grandkids. 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 Has 7 of own horses and board 3 other horses but has a rocket motor mechanic on the property to care of the horses for 15 days a month. Mostly does care of stalls but he does all the repairs of fences etc. Feels like got bent over more in the last year. First started getting back pain and leg issues about 3 years ago. did have neck surgery and was helping friend get horse in trailer and slipped on ice and fell on neck, head and shulder and was paralyzed for 24 hours in legs and arms gradually got movement back. had to be taken by ambulance to [facility]. C3-4 fusion and vertebral replacement (ant and post) performed at [facility] for emergency surgery may 14, 2009, (injury was Apr 27 2008) . During recovery process was very restricted for 5 months. Did have coordination issues after surgery and hasn't gotten full recovery of RUE. this has affected his leg coordination. Another occasion where he cracked a vertebra in back and thinks this may have contributed to stenosis in back. Does report he has BLT restrictiona nd adheres to lifting restrictions, but does feel like it is hard to avoid bending and twisting Treatment Goals Patient/Caregiver Goals Improve walking ability and be able mount his horse and ride again. PT-OP-C Subjective Start: 04/25/24 10:29 Freq: Status: Active Protocol: Document 06/17/24 10:45 [facility] (Rec: 06/17/24 11:35 [facility] [id number]) OP-PT Subjective Patient Comments Patient Comments Pt reports he is feeling pretty good today. PT-OP-D Balance Start: 04/25/24 10:29 Freq: Status: Active Protocol: Document 05/04/24 09:45 LR (Rec: 05/04/24 10:51 [facility] [id number]) Balance Tests Single Limb Standing Single Limb- Right able to lift leg only Single Limb- Left able to lift leg only PT-OP-E Functional Tests Start: 05/04/24 12:27 Freq: Status: Active Protocol: Document 05/30/24 12:24 LR (Rec: 05/30/24 10:50 [facility] [id number]) Functional Tests Dynamic Gait Index (DGI) Score PT-OP-F Manual Assessment Start: 04/25/24 10:29 Freq: Status: Active Protocol: Document 05/04/24 09:45 LR (Rec: 05/04/24 10:51 [facility] [id number]) Manual Assessments Joint Mobility Assessment Joint Mobility Assessment significant lack of hip mobility PT-OP-G Mobility & Gait Start: 04/25/24 10:29 Freq: Status: Active Protocol: Document 05/04/24 09:45 LR (Rec: 05/04/24 10:51 [facility] [id number]) OP Gait Assessment Comments Gait Comments flexed trunk, dec RLE stance time, dec B foot clearance, lat L lean w/WB on LLE PT-OP-J Posture/Palpation/Skin Start: 04/25/24 10:29 Freq: Status: Active Protocol: Document 05/30/24 12:24 [facility] (Rec: 05/30/24 10:50 [facility] [id number]) Posture Evaluation [facility] Postural Classification System Lumbar Protective Mechanism Left AP 0 Lumbar Protective Mechanism Right AP 0 Lumbar Protective Mechanism Left PA 0 Lumbar Protective Mechanism Right PA 0 PT-OP-K Range of Motion Start: 04/25/24 10:29 Freq: Status: Active Protocol: Document 05/04/24 09:45 [facility] (Rec: 05/04/24 10:51 [facility] [id number]) Lumbar Spine Range of Motion Lumbar Spine Active Percentage Comments n/t d/t restrictions PT-OP-L Special Tests Start: 04/25/24 10:29 Freq: Status: Active Protocol: Document 05/04/24 09:45 [facility] (Rec: 05/04/24 10:51 [facility] [id number]) Special Tests Lumbar Spine Special Tests SLR Test Results R>L HS tightness Slump Test Results neg -dec HS length Other Special Tests Special Tests tone noted in RLE PT-OP-M Strength Start: 04/25/24 10:29 Freq: Status: Active Protocol: Document 05/30/24 09:47 [facility] (Rec: 05/30/24 10:50 [facility] [id number]) Hip Strength Hip Manual Muscle Testing Right Flexion (L2) 4- Good- Abduction 3+ Fair+ External Rotation 3+ Fair+ Internal Rotation 3+ Fair+ Left Flexion (L2) 4 Good Abduction 4- Good- External Rotation 4- Good- Internal Rotation 4 Good Knee Strength Knee Manual Muscle Testing Right Flexion (S2) 4- Good- Extension (L3) 4+ Good+ Left Flexion (S2) 4 Good Extension (L3) 5 Normal Ankle/Foot Strength Ankle and Foot Manual Muscle Testing Right Dorsiflexion (L4) 4 Good Plantarflexion (S1) 4+ Good+ Left Dorsiflexion (L4) 4 Good Plantarflexion (S1) 4+ Good+ Comments PF tested seated B PT-OP-Q Treatments Start: 04/25/24 10:29 Freq: Status: Active Protocol: Document 06/17/24 10:45 [facility] (Rec: 02/21/25 11:35 [facility] [id number]) Gym Equipment Shuttle Recovery unilateral squat Details unlocked to allow assimulation at gym guero range can, heel press glut/hip ef Resistance 50# (2 navy) Reps/Time 15 reps each LE Bilateral Squats Details improved knee alignment Resistance 87# (3 navy) Reps/Time 2x 15 reps Therapeutic Exercises Supine Exercises Calf stretch Supine Exercise Name Calf stretch Side bilateral stretch Supine Exercise Name HS Side bilateral adductor stretch] Supine Exercise Name adductor stretch Side bilateral Neuro Re-Education Treatment Balance Activities Dynamic gait Details Tandem ambulation Equipment // bars Comments Fwd, Bkwd PT-OP-T Assessment and Plan Start: 04/25/24 10:29 Freq: Status: Active Protocol: Document 06/17/24 10:45 [facility] (Rec: 06/17/24 11:35 [facility] [id number]) Physical Therapy Assessment Goals balance Impairment DGI 11/17 Short Term Goal (STG) Pt will improve DGI to at least 13 to dec fall risk STG Duration achieved 2/3 Claims Analyst Goal (LTG) Pt will improve DGI to at least 18 to dec fall risk LTG Duration 4/2 activity Halfway Goal (LTG) Pt will be able to ride horse and participate in all care of property. 2/3-feels stronger on the property and getting back to full work, hasn't rode a horse LTG Duration 4/2 strength Short Term Goal (STG) Pt will be indep w/HEP STG Duration achieved advancing as able Claims Analyst Goal (LTG) Pt will score at least 4+/5 on all BLE MMT and at least 3/5 on LPM to show improved stability to allow greater ease w/typical activities. 2/3-improving LE strength LTG Duration 4/2 Assessment Summary Assessment Pt tolerated balance challenges well, continues to work on stretching and HEP independently. Physical Therapy Plan Frequency and Duration Frequency of Treatment 2x/Week Duration of treatment (weeks) 12 Plan of Care Start Date 05/04/24 Plan of Care End Date 07/27/24 Therapeutic Interventions Therapeutic Interventions Balance Training,Coordination Training,Gait Training,Home Exercise Program,Joint Mobilizations,Manual Therapy, Neuromuscular Re-education, Orthotic/Prosthetic Management ,Patient/Caregiver Education, Self-Care/Home Management,Soft Tissue Mobilization,Taping, Therapeutic Activities, Therapeutic Exercises Modalities Cold Pack/Ice Massage,Electric Stimulation,Hot Packs, Infrared Therapy,Ultrasound Next Visit Focus/Plan Next Note Type Treatment Note Next Visit Plan POC: core and hip strengthening Balance: continue shuttle balance, hurdles, foam, step taps add leg wt, sport cord. manual and needed PNF
--- NOTE | 2024-06-21 12:16 | PT.OTN ---
Current Diagnoses Spinal stenosis, lumbar region with neurogenic claudication (06/21/24) Postlaminectomy syndrome, not elsewhere classified (06/21/24) Other abnormalities of gait and mobility (06/21/24) Abnormal posture (06/21/24) Weakness (06/21/24) Physical Therapy Treatment Note PT-OP-A Visit Information Start: 04/25/24 10:29 Freq: Status: Active Protocol: Document 06/21/24 11:36 SP (Rec: 06/21/24 12:25 SP [id number]) Out-Patient Physical Therapy Visit Information Visit Information Visit Type Treatment Note Visit Start Time 11:36 Visit Stop Time 12:16 Visit Number 03/12 approved Number of THEATRE PROFESSOR Visits 1 Precautions Precautions no twisting, bending, lifting >10 lbs PT-OP-B Current Condition Start: 04/25/24 10:29 Freq: Status: Active Protocol: Document 05/04/24 09:45 [facility] (Rec: 05/04/24 10:51 [facility] [id number]) Current Condition History of Current Condition Onset Date Mar 2 Current Complaints lami L4-5 History of Current Condition Pt had laminectomy L4-5 Dec 2 d/t could hardly bent L leg. Took care of flexiblity issues but is still very still when first gets up. no more pain down leg. Pt reports doens't ahve much pain but feels stiff when standing a long time. Pt reports has to walk slowly to not lose balance. He feels like over the past 3 years he has had a gradual dec in balance and ability to respond to uneven ground. Got to the point where he hasn't been able to ride horses for 3 years and has not been able to paly w/grandkids. 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 Has 7 of own horses and board 3 other horses but has a shirt folding machine operator on the property to care of the horses for 15 days a month. Mostly does care of stalls but he does all the repairs of fences etc. Feels like got bent over more in the last year. First started getting back pain and leg issues about 3 years ago. did have neck surgery and was helping friend get horse in trailer and slipped on ice and fell on neck, head and shulder and was paralyzed for 24 hours in legs and arms gradually got movement back. had to be taken by ambulance to [facility]. C3-4 fusion and vertebral replacement (ant and post) performed at [facility] for emergency surgery may 14, 2009, (injury was Apr 27 2008) . During recovery process was very restricted for 5 months. Did have coordination issues after surgery and hasn't gotten full recovery of RUE. this has affected his leg coordination. Another occasion where he cracked a vertebra in back and thinks this may have contributed to stenosis in back. Does report he has BLT restrictiona nd adheres to lifting restrictions, but does feel like it is hard to avoid bending and twisting Treatment Goals Patient/Caregiver Goals Improve walking ability and be able mount his horse and ride again. PT-OP-C Subjective Start: 04/25/24 10:29 Freq: Status: Active Protocol: Document 06/21/24 11:36 SP (Rec: 06/21/24 12:25 SP [id number]) OP-PT Subjective Patient Comments Patient Comments Pt reports felt pretty good after last tx supringly. Didnt go to the gym later day, PT was enough. . PT-OP-D Balance Start: 04/25/24 10:29 Freq: Status: Active Protocol: Document 05/04/24 09:45 [facility] (Rec: 05/04/24 10:51 [facility] [id number]) Balance Tests Single Limb Standing Single Limb- Right able to lift leg only Single Limb- Left able to lift leg only PT-OP-E Functional Tests Start: 05/04/24 12:27 Freq: Status: Active Protocol: Document 05/30/24 12:24 [facility] (Rec: 05/30/24 10:50 [facility] [id number]) Functional Tests Dynamic Gait Index (DGI) Score PT-OP-F Manual Assessment Start: 04/25/24 10:29 Freq: Status: Active Protocol: Document 05/04/24 09:45 [facility] (Rec: 05/04/24 10:51 [facility] [id number]) Manual Assessments Joint Mobility Assessment Joint Mobility Assessment significant lack of hip mobility PT-OP-G Mobility & Gait Start: 04/25/24 10:29 Freq: Status: Active Protocol: Document 05/04/24 09:45 [facility] (Rec: 05/04/24 10:51 [facility] [id number]) OP Gait Assessment Comments Gait Comments flexed trunk, dec RLE stance time, dec B foot clearance, lat L lean w/WB on LLE PT-OP-J Posture/Palpation/Skin Start: 04/25/24 10:29 Freq: Status: Active Protocol: Document 05/30/24 12:24 [facility] (Rec: 05/30/24 10:50 [facility] [id number]) Posture Evaluation [facility] Postural Classification System Lumbar Protective Mechanism Left AP 0 Lumbar Protective Mechanism Right AP 0 Lumbar Protective Mechanism Left PA 0 Lumbar Protective Mechanism Right PA 0 PT-OP-K Range of Motion Start: 04/25/24 10:29 Freq: Status: Active Protocol: Document 05/04/24 09:45 [facility] (Rec: 05/04/24 10:51 [facility] [id number]) Lumbar Spine Range of Motion Lumbar Spine Active Percentage Comments n/t d/t restrictions PT-OP-L Special Tests Start: 04/25/24 10:29 Freq: Status: Active Protocol: Document 05/04/24 09:45 [facility] (Rec: 05/04/24 10:51 [facility] [id number]) Special Tests Lumbar Spine Special Tests SLR Test Results R>L HS tightness Slump Test Results neg -dec HS length Other Special Tests Special Tests tone noted in RLE PT-OP-M Strength Start: 04/25/24 10:29 Freq: Status: Active Protocol: Document 05/30/24 09:47 [facility] (Rec: 05/30/24 10:50 [facility] [id number]) Hip Strength Hip Manual Muscle Testing Right Flexion (L2) 4- Good- Abduction 3+ Fair+ External Rotation 3+ Fair+ Internal Rotation 3+ Fair+ Left Flexion (L2) 4 Good Abduction 4- Good- External Rotation 4- Good- Internal Rotation 4 Good Knee Strength Knee Manual Muscle Testing Right Flexion (S2) 4- Good- Extension (L3) 4+ Good+ Left Flexion (S2) 4 Good Extension (L3) 5 Normal Ankle/Foot Strength Ankle and Foot Manual Muscle Testing Right Dorsiflexion (L4) 4 Good Plantarflexion (S1) 4+ Good+ Left Dorsiflexion (L4) 4 Good Plantarflexion (S1) 4+ Good+ Comments PF tested seated B PT-OP-Q Treatments Start: 04/25/24 10:29 Freq: Status: Active Protocol: Document 06/21/24 11:36 SP (Rec: 06/21/24 12:25 SP [id number]) Therapeutic Exercises Sitting Exercises STS Equipment Used mesh chair, foam under feet Reps/Minutes x10 each surface Comments uses little momentum, no UE support Standing Exercises hip rotation Standing Exercise Name 1.fwd circles 2. backwards circles Side right Equipment Used rails, step over/ back 1 hurdles> 8> 12 height step ( on its side) Reps/Minutes several reps (at rail and outside stairs) Comments cues posture step up Standing Exercise Name fwd/ back down Side bilateral Resistance 5# leg wt, 6 step Equipment Used rail cues light touch only L UE Reps/Minutes 10 ea Neuro Re-Education Treatment Balance Activities fwd/bwd stepping Equipment hallway, 1 hand glide rail Comments cued hip and knee flexion, toe heel, even pivot turn return step taps Equipment 5# leg wt, 6 step Comments AROM, 6 step, needed light contact rail today. PT-OP-T Assessment and Plan Start: 04/25/24 10:29 Freq: Status: Active Protocol: Document 06/21/24 11:36 SP (Rec: 06/21/24 12:25 SP [id number]) Physical Therapy Assessment Goals balance Impairment DGI 11/17 Short Term Goal (STG) Pt will improve DGI to at least 13 to dec fall risk STG Duration achieved 2/3 Custodial Goal (LTG) Pt will improve DGI to at least 18 to dec fall risk LTG Duration 4/2 activity Gauge And Weigh Machine Adjuster Goal (LTG) Pt will be able to ride horse and participate in all care of property. 2/3-feels stronger on the property and getting back to full work, hasn't rode a horse LTG Duration 4/2 strength Short Term Goal (STG) Pt will be indep w/HEP STG Duration achieved advancing as able Custodial Goal (LTG) Pt will score at least 4+/5 on all BLE MMT and at least 3/5 on LPM to show improved stability to allow greater ease w/typical activities. 2/3-improving LE strength LTG Duration 4/2 Assessment Summary Assessment Pt reports little more LE tiring with increased resisted ex. Progressed R LE hip circles over objects in gym for assimulation ROM and for return to getting on/off horse , AROM. Physical Therapy Plan Frequency and Duration Frequency of Treatment 2x/Week Duration of treatment (weeks) 12 Plan of Care Start Date 05/04/24 Plan of Care End Date 07/27/24 Therapeutic Interventions Therapeutic Interventions Balance Training,Coordination Training,Gait Training,Home Exercise Program,Joint Mobilizations,Manual Therapy, Neuromuscular Re-education, Orthotic/Prosthetic Management ,Patient/Caregiver Education, Self-Care/Home Management,Soft Tissue Mobilization,Taping, Therapeutic Activities, Therapeutic Exercises Modalities Cold Pack/Ice Massage,Electric Stimulation,Hot Packs, Infrared Therapy,Ultrasound Next Visit Focus/Plan Next Note Type Treatment Note Next Visit Plan POC: core and hip strengthening Balance: continue shuttle balance, hurdles, foam, step taps add leg wt, sport cord. manual and needed PNF
--- NOTE | 2024-06-27 12:21 | PT.OTN ---
Current Diagnoses Spinal stenosis, lumbar region with neurogenic claudication (06/27/24) Postlaminectomy syndrome, not elsewhere classified (06/27/24) Other abnormalities of gait and mobility (06/27/24) Abnormal posture (06/27/24) Weakness (06/27/24) Physical Therapy Treatment Note PT-OP-A Visit Information Start: 04/25/24 10:29 Freq: Status: Active Protocol: Document 06/27/24 10:50 [facility] (Rec: 06/27/24 12:02 [facility] [id number]) Out-Patient Physical Therapy Visit Information Visit Information Visit Type Progress Note Visit Start Time 10:50 Visit Stop Time 11:30 Visit Number 04/11 Number of PASSENGER CAR UPHOLSTERER APPRENTICE Visits 0 PT-OP-B Current Condition Start: 04/25/24 10:29 Freq: Status: Active Protocol: Document 05/04/24 09:45 [facility] (Rec: 05/04/24 10:51 [facility] [id number]) Current Condition History of Current Condition Onset Date Mar 2 Current Complaints lami L4-5 History of Current Condition Pt had laminectomy L4-5 Dec 2 d/t could hardly bent L leg. Took care of flexiblity issues but is still very still when first gets up. no more pain down leg. Pt reports doens't ahve much pain but feels stiff when standing a long time. Pt reports has to walk slowly to not lose balance. He feels like over the past 3 years he has had a gradual dec in balance and ability to respond to uneven ground. Got to the point where he hasn't been able to ride horses for 3 years and has not been able to paly w/grandkids. 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 He does a lot of the work on this [employer]. Has 7 of own horses and board 3 other horses but has a morning show host on the property to care of the horses for 15 days a month. Mostly does care of stalls but he does all the repairs of fences etc. Feels like got bent over more in the last year. First started getting back pain and leg issues about 3 years ago. did have neck surgery and was helping friend get horse in trailer and slipped on ice and fell on neck, head and shulder and was paralyzed for 24 hours in legs and arms gradually got movement back. had to be taken by ambulance to [facility]. C3-4 fusion and vertebral replacement (ant and post) performed at [facility] for emergency surgery may 14, 2009, (injury was Apr 27 2008) . During recovery process was very restricted for 5 months. Did have coordination issues after surgery and hasn't gotten full recovery of RUE. this has affected his leg coordination. Another occasion where he cracked a vertebra in back and thinks this may have contributed to stenosis in back. Does report he has BLT restrictiona nd adheres to lifting restrictions, but does feel like it is hard to avoid bending and twisting Treatment Goals Patient/Caregiver Goals Improve walking ability and be able mount his horse and ride again. PT-OP-C Subjective Start: 04/25/24 10:29 Freq: Status: Active Protocol: Document 06/27/24 10:50 [facility] (Rec: 06/27/24 12:02 [facility] [id number]) OP-PT Subjective Patient Comments Patient Comments Feels like he is doing more around house. Occ catches feet on bridger. Hasnt tired horseback riding Patient Questionnaires Oswestry Low Back Index Oswestry Score 24% PT-OP-D Balance Start: 04/25/24 10:29 Freq: Status: Active Protocol: Document 05/04/24 09:45 [facility] (Rec: 05/04/24 10:51 [facility] [id number]) Balance Tests Single Limb Standing Single Limb- Right able to lift leg only Single Limb- Left able to lift leg only PT-OP-E Functional Tests Start: 05/04/24 12:27 Freq: Status: Active Protocol: Document 06/27/24 10:50 [facility] (Rec: 06/27/24 12:02 [facility] [id number]) Functional Tests Dynamic Gait Index (DGI) Score PT-OP-F Manual Assessment Start: 04/25/24 10:29 Freq: Status: Active Protocol: Document 05/04/24 09:45 [facility] (Rec: 05/04/24 10:51 [facility] [id number]) Manual Assessments Joint Mobility Assessment Joint Mobility Assessment significant lack of hip mobility PT-OP-G Mobility & Gait Start: 04/25/24 10:29 Freq: Status: Active Protocol: Document 05/04/24 09:45 [facility] (Rec: 05/04/24 10:[id number] OP Gait Assessment Comments Gait Comments flexed trunk, dec RLE stance time, dec B foot clearance, lat L lean w/WB on LLE PT-OP-J Posture/Palpation/Skin Start: 04/25/24 10:29 Freq: Status: Active Protocol: Document 06/27/24 10:50 [facility] (Rec: 06/27/24 12:[id number]) Posture Evaluation [facility] Postural Classification System Lumbar Protective Mechanism Left AP 1 Lumbar Protective Mechanism Right AP 1 Lumbar Protective Mechanism Left PA 1 Lumbar Protective Mechanism Right PA 1 PT-OP-K Range of Motion Start: 04/25/24 10:29 Freq: Status: Active Protocol: Document 05/04/24 09:45 [facility] (Rec: 05/04/24 10:51 [place] [id number]) Lumbar Spine Range of Motion Lumbar Spine Active Percentage Comments n/t d/t restrictions PT-OP-L Special Tests Start: 04/25/24 10:29 Freq: Status: Active Protocol: Document 05/04/24 09:45 [facility] (Rec: 05/04/24 10:51 [place] [id number]) Special Tests Lumbar Spine Special Tests SLR Test Results R>L HS tightness Slump Test Results neg -dec HS length Other Special Tests Special Tests tone noted in RLE PT-OP-M Strength Start: 04/25/24 10:29 Freq: Status: Active Protocol: Document 06/27/24 10:50 [facility] (Rec: 06/27/24 12:02 [facility] [id number]) Hip Strength Hip Manual Muscle Testing Right Flexion (L2) 4- Good- Abduction 4- Good- External Rotation 4 Good Internal Rotation 4 Good Left Flexion (L2) 4 Good Abduction 4 Good External Rotation 4 Good Internal Rotation 4+ Good+ Knee Strength Knee Manual Muscle Testing Right Flexion (S2) 4- Good- Extension (L3) 5 Normal Left Flexion (S2) 4+ Good+ Extension (L3) 5 Normal Ankle/Foot Strength Ankle and Foot Manual Muscle Testing Right Dorsiflexion (L4) 4+ Good+ Plantarflexion (S1) 4+ Good+ Left Dorsiflexion (L4) 5 Normal Plantarflexion (S1) 4+ Good+ Comments PF tested seated B PT-OP-Q Treatments Start: 04/25/24 10:29 Freq: Status: Active Protocol: Document 06/27/24 10:50 [facility] (Rec: 06/27/24 12:02 [facility] [id number]) Therapeutic Exercises Other Exercises isometrics Other Exercise Name B LE MMT and LPM all planes Reps/Minutes 8 min Manual Therapy Treatment Consent Patient gave verbal consent for manual Yes treatment Soft Tissue Mobilization hips Body Location B add and HS w/abd, ER and hip flex Joint Mobilizations B hips Comments B inf and free the ball ER c/r Neuro Re-Education Treatment Balance Activities Dynamic gait Comments DGI hurdles Details 2# wt Equipment 6 hurdles, hallway Comments 1. fwd reciprocally /c 1 HR x4 2. sidestep /c 1 HR x1 B PT-OP-T Assessment and Plan Start: 04/25/24 10:29 Freq: Status: Active Protocol: Document 06/27/24 10:50 [facility] (Rec: 06/27/24 12:02 [facility] [id number]) Physical Therapy Assessment Goals balance Impairment DGI 11/17 Short Term Goal (STG) Pt will improve DGI to at least 13 to dec fall risk STG Duration achieved 2/3 Language And Literature Division Chair Goal (LTG) Pt will improve DGI to at least 18 to dec fall risk 3- LTG Duration 07/27 activity Language And Literature Division Chair Goal (LTG) Pt will be able to ride horse and participate in all care of property. 2/3-feels stronger on the property and getting back to full work, hasn't rode a horse 3/3-has not gotten on a horse; is doing everything he needs to but needs to step higher w/ bridger LTG Duration 08/22 strength Short Term Goal (STG) Pt will be indep w/HEP STG Duration achieved advancing as able Retirement Goal (LTG) Pt will score at least 4+/5 on all BLE MMT and at least 3/5 on LPM to show improved stability to allow greater ease w/typical activities. 2/3-improving LE strength 3/3-improving LTG Duration 08/22 Assessment Summary Assessment Pt making good progress w/PT with improved balance, strength and overall moblity. He is partiicpating in more on his property w/some difficulty stepping over bushes still and feels liek he is still weaker than prior to back issue. He would benefit from cont PT to work on this. Physical Therapy Plan Frequency and Duration Frequency of Treatment 1-2x/wk Duration of treatment (weeks) 8 Plan of Care Start Date 06/27/24 Plan of Care End Date 08/22/24 Therapeutic Interventions Therapeutic Interventions Balance Training,Coordination Training,Gait Training,Home Exercise Program,Joint Mobilizations,Manual Therapy, Neuromuscular Re-education, Orthotic/Prosthetic Management ,Patient/Caregiver Education, Self-Care/Home Management,Soft Tissue Mobilization,Taping, Therapeutic Activities, Therapeutic Exercises Modalities Cold Pack/Ice Massage,Electric Stimulation,Hot Packs, Infrared Therapy,Ultrasound Next Visit Focus/Plan Next Note Type Treatment Note Next Visit Plan POC: core and hip strengthening Balance: continue shuttle balance, hurdles, foam, step taps add leg wt, sport cord. manual and needed PNF
--- NOTE | 2024-06-27 12:21 | PT.OPPOC ---
Physical, Occupational & Speech Therapy At [facility] Current Diagnoses Spinal stenosis, lumbar region with neurogenic claudication (06/27/24) Postlaminectomy syndrome, not elsewhere classified (06/27/24) Other abnormalities of gait and mobility (06/27/24) Abnormal posture (06/27/24) Weakness (06/27/24) Visit Care Team Role Provider Type Gomez Cash MD Family Provider Physician Primary Care Provider Specialty: Internal Medicine Address: [address] [place] [address], [address], [address] Email: [email or web address] Partha Little MD Attending Provider Non-Staff Referring Provider Specialty: Orthopedics Orthopedic Surgery Address: [address] [place] [address], [id number] Email: Plan Of Care PT-OP-B Current Condition Start: 04/25/24 10:29 Freq: Status: Active Protocol: Document 05/04/24 09:45 [facility] (Rec: 05/04/24 10:51 [facility] [id number]) Current Condition History of Current Condition Onset Date Mar 2 Current Complaints lami L4-5 History of Current Condition Pt had laminectomy L4-5 Dec 2 d/t could hardly bent L leg. Took care of flexiblity issues but is still very still when first gets up. no more pain down leg. Pt reports doens't ahve much pain but feels stiff when standing a long time. Pt reports has to walk slowly to not lose balance. He feels like over the past 3 years he has had a gradual dec in balance and ability to respond to uneven ground. Got to the point where he hasn't been able to ride horses for 3 years and has not been able to paly w/grandkids. 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 Has 7 of own horses and board 3 other horses but has a reaming machine tender on the property to care of the horses for 15 days a month. Mostly does care of stalls but he does all the repairs of fences etc. Feels like got bent over more in the last year. First started getting back pain and leg issues about 3 years ago. did have neck surgery and was helping friend get horse in trailer and slipped on ice and fell on neck, head and shulder and was paralyzed for 24 hours in legs and arms gradually got movement back. had to be taken by ambulance to [facility]. C3-4 fusion and vertebral replacement (ant and post) performed at [facility] for emergency surgery may 14, 2009, (injury was Apr 27 2008) . During recovery process was very restricted for 5 months. Did have coordination issues after surgery and hasn't gotten full recovery of RUE. this has affected his leg coordination. Another occasion where he cracked a vertebra in back and thinks this may have contributed to stenosis in back. Does report he has BLT restrictiona nd adheres to lifting restrictions, but does feel like it is hard to avoid bending and twisting Treatment Goals Patient/Caregiver Goals Improve walking ability and be able mount his horse and ride again. PT-OP-T Assessment and Plan Start: 04/25/24 10:29 Freq: Status: Active Protocol: Document 06/27/24 10:50 [facility] (Rec: 06/27/24 12:02 [facility] [id number]) Physical Therapy Assessment Goals balance Impairment DGI 11/17 Short Term Goal (STG) Pt will improve DGI to at least 13 to dec fall risk STG Duration achieved / Ticket Collector Goal (LTG) Pt will improve DGI to at least 18 to dec fall risk 06/27- LTG Duration 07/27 activity Halfway Goal (LTG) Pt will be able to ride horse and participate in all care of property. 2/3-feels stronger on the property and getting back to full work, hasn't rode a horse 3/3-has not gotten on a horse; is doing everything he needs to but needs to step higher w/ bridger LTG Duration 08/22 strength Short Term Goal (STG) Pt will be indep w/HEP STG Duration achieved advancing as able Ticket Collector Goal (LTG) Pt will score at least 4+/5 on all BLE MMT and at least 3/5 on LPM to show improved stability to allow greater ease w/typical activities. 2/3-improving LE strength 3/3-improving LTG Duration 08/22 Assessment Summary Assessment Pt making good progress w/PT with improved balance, strength and overall moblity. He is partiicpating in more on his property w/some difficulty stepping over bushes still and feels liek he is still weaker than prior to back issue. He would benefit from cont PT to work on this. Physical Therapy Plan Frequency and Duration Frequency of Treatment 1-2x/wk Duration of treatment (weeks) 8 Plan of Care Start Date 06/27/24 Plan of Care End Date 08/22/24 Therapeutic Interventions Therapeutic Interventions Balance Training,Coordination Training,Gait Training,Home Exercise Program,Joint Mobilizations,Manual Therapy, Neuromuscular Re-education, Orthotic/Prosthetic Management ,Patient/Caregiver Education, Self-Care/Home Management,Soft Tissue Mobilization,Taping, Therapeutic Activities, Therapeutic Exercises Modalities Cold Pack/Ice Massage,Electric Stimulation,Hot Packs, Infrared Therapy,Ultrasound Next Visit Focus/Plan Next Note Type Treatment Note Next Visit Plan POC: core and hip strengthening Balance: continue shuttle balance, hurdles, foam, step taps add leg wt, sport cord. manual and needed PNF Plan of Care Dates Plan of Care Start Date 06/27/24 Plan of Care End Date 08/22/24 Electronically Signed by: Zuly Smyth, PT 06/27/24 [id number] If you are in agreement with this Plan of Care, please return a signed and dated copy. I have reviewed this Plan of Care and certify that the skilled therapy services above are required to meet the patient?s needs. Physician Signature Date Printed Name and Credentials Clinical Instructor Signature Printed Name and Credentials
--- NOTE | 2024-06-29 13:18 | PT.OTN ---
Current Diagnoses Spinal stenosis, lumbar region with neurogenic claudication (06/29/24) Postlaminectomy syndrome, not elsewhere classified (06/29/24) Other abnormalities of gait and mobility (06/29/24) Abnormal posture (06/29/24) Weakness (06/29/24) Physical Therapy Treatment Note PT-OP-A Visit Information Start: 04/25/24 10:29 Freq: Status: Active Protocol: Document 06/29/24 10:50 [facility] (Rec: 06/29/24 13:18 [facility] [id number]) Out-Patient Physical Therapy Visit Information Visit Information Visit Type Treatment Note Visit Number Number of DIRECTOR OF AUTOMATION Visits 0 PT-OP-B Current Condition Start: 04/25/24 10:29 Freq: Status: Active Protocol: Document 05/04/24 09:45 [facility] (Rec: 05/04/24 10:51 [facility] [id number]) Current Condition History of Current Condition Onset Date Dec 2 Current Complaints lami L4-5 History of Current Condition Pt had laminectomy L4-5 Dec 2 d/t could hardly bent L leg. Took care of flexiblity issues but is still very still when first gets up. no more pain down leg. Pt reports doens't ahve much pain but feels stiff when standing a long time. Pt reports has to walk slowly to not lose balance. He feels like over the past 3 years he has had a gradual dec in balance and ability to respond to uneven ground. Got to the point where he hasn't been able to ride horses for 3 years and has not been able to paly w/grandkids. 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 He does a lot of the work on this [employer] and [employer]. Has 7 of own horses and board 3 other horses but has a tool and gauge inspector on the property to care of the horses for 15 days a month. Mostly does care of stalls but he does all the repairs of fences etc. Feels like got bent over more in the last year. First started getting back pain and leg issues about 3 years ago. did have neck surgery and was helping friend get horse in trailer and slipped on ice and fell on neck, head and shulder and was paralyzed for 24 hours in legs and arms gradually got movement back. had to be taken by ambulance to [facility]. C3-4 fusion and vertebral replacement (ant and post) performed at [facility] for emergency surgery may 14, 2009, (injury was Apr 27 2008) . During recovery process was very restricted for 5 months. Did have coordination issues after surgery and hasn't gotten full recovery of RUE. this has affected his leg coordination. Another occasion where he cracked a vertebra in back and thinks this may have contributed to stenosis in back. Does report he has BLT restrictiona nd adheres to lifting restrictions, but does feel like it is hard to avoid bending and twisting Treatment Goals Patient/Caregiver Goals Improve walking ability and be able mount his horse and ride again. PT-OP-C Subjective Start: 04/25/24 10:29 Freq: Status: Active Protocol: Document 06/29/24 10:50 [facility] (Rec: 06/29/24 13:18 [facility] [id number]) OP-PT Subjective Patient Comments Patient Comments pt notes he is going on vacation nextw kashia to visit family PT-OP-D Balance Start: 04/25/24 10:29 Freq: Status: Active Protocol: Document 05/04/24 09:45 [facility] (Rec: 05/04/24 10:51 [facility] [id number]) Balance Tests Single Limb Standing Single Limb- Right able to lift leg only Single Limb- Left able to lift leg only PT-OP-E Functional Tests Start: 05/04/24 12:27 Freq: Status: Active Protocol: Document 06/27/24 10:50 [facility] (Rec: 06/27/24 12:02 [facility] [id number]) Functional Tests Dynamic Gait Index (DGI) Score 1524 PT-OP-F Manual Assessment Start: 04/25/24 10:29 Freq: Status: Active Protocol: Document 05/04/24 09:45 [facility] (Rec: 05/04/24 10:51 [facility] [id number]) Manual Assessments Joint Mobility Assessment Joint Mobility Assessment significant lack of hip mobility PT-OP-G Mobility & Gait Start: 04/25/24 10:29 Freq: Status: Active Protocol: Document 05/04/24 09:45 [facility] (Rec: 05/04/24 10:51 [facility] [id number]) OP Gait Assessment Comments Gait Comments flexed trunk, dec RLE stance time, dec B foot clearance, lat L lean w/WB on LLE PT-OP-J Posture/Palpation/Skin Start: 04/25/24 10:29 Freq: Status: Active Protocol: Document 06/27/24 10:50 [facility] (Rec: 06/27/24 12:02 [facility] [id number]) Posture Evaluation [facility] Postural Classification System Lumbar Protective Mechanism Left AP 1 Lumbar Protective Mechanism Right AP 1 Lumbar Protective Mechanism Left PA 1 Lumbar Protective Mechanism Right PA 1 PT-OP-K Range of Motion Start: 04/25/24 10:29 Freq: Status: Active Protocol: Document 05/04/24 09:45 [facility] (Rec: 05/04/24 10:51 [facility] [id number]) Lumbar Spine Range of Motion Lumbar Spine Active Percentage Comments n/t d/t restrictions PT-OP-L Special Tests Start: 04/25/24 10:29 Freq: Status: Active Protocol: Document 05/04/24 09:45 [facility] (Rec: 05/04/24 10:51 [facility] [id number]) Special Tests Lumbar Spine Special Tests SLR Test Results R>L HS tightness Slump Test Results neg -dec HS length Other Special Tests Special Tests tone noted in RLE PT-OP-M Strength Start: 04/25/24 10:29 Freq: Status: Active Protocol: Document 06/27/24 10:50 [facility] (Rec: 06/27/24 12:02 [facility] [id number]) Hip Strength Hip Manual Muscle Testing Right Flexion (L2) 4- Good- Abduction 4- Good- External Rotation 4 Good Internal Rotation 4 Good Left Flexion (L2) 4 Good Abduction 4 Good External Rotation 4 Good Internal Rotation 4+ Good+ Knee Strength Knee Manual Muscle Testing Right Flexion (S2) 4- Good- Extension (L3) 5 Normal Left Flexion (S2) 4+ Good+ Extension (L3) 5 Normal Ankle/Foot Strength Ankle and Foot Manual Muscle Testing Right Dorsiflexion (L4) 4+ Good+ Plantarflexion (S1) 4+ Good+ Left Dorsiflexion (L4) 5 Normal Plantarflexion (S1) 4+ Good+ Comments PF tested seated B PT-OP-Q Treatments Start: 04/25/24 10:29 Freq: Status: Active Protocol: Document 06/29/24 10:50 [facility] (Rec: 06/29/24 13:18 [facility] [id number]) Gym Equipment Shuttle Recovery unilateral squat Resistance 50# (2 navy) Reps/Time 15 reps each LE Therapeutic Exercises Standing Exercises squat Standing Exercise Name on black foam Side bilateral Reps/Minutes 15 Comments partial range PF Standing Exercise Name walks Side bilateral Equipment Used // bar prn Reps/Minutes 2x10ft DF Standing Exercise Name walks Side bilateral Equipment Used //bar prn Reps/Minutes 6x10ft step up Standing Exercise Name lat up and over Side bilateral Equipment Used 5 in step Reps/Minutes 10 ea Neuro Re-Education Treatment Balance Activities grapevine Comments 2x10ft B Dynamic gait Comments over blue mats w/uneven surfaces under (2) x6 hurdles Details 2# wt Equipment 6 hurdles, hallway Comments 1. fwd reciprocally /c 1 HR x6 2. sidestep /c 1 HR x1 B PT-OP-T Assessment and Plan Start: 04/25/24 10:29 Freq: Status: Active Protocol: Document 06/29/24 10:50 [facility] (Rec: 06/29/24 13:18 [facility] [id number]) Physical Therapy Assessment Goals balance Impairment DGI 11/17 Short Term Goal (STG) Pt will improve DGI to at least 13 to dec fall risk STG Duration achieved 2/ Senior Licensing Manager Goal (LTG) Pt will improve DGI to at least 18 to dec fall risk 06/27- LTG Duration 07/27 activity Senior Licensing Manager Goal (LTG) Pt will be able to ride horse and participate in all care of property. 2/3-feels stronger on the property and getting back to full work, hasn't rode a horse 3/3-has not gotten on a horse; is doing everything he needs to but needs to step higher w/ bridger LTG Duration 08/22 strength Short Term Goal (STG) Pt will be indep w/HEP STG Duration achieved advancing as able Snf Goal (LTG) Pt will score at least 4+/5 on all BLE MMT and at least 3/5 on LPM to show improved stability to allow greater ease w/typical activities. 2/3-improving LE strength 3/3-improving LTG Duration 08/22 Assessment Summary Assessment Pt did well overall with exercises today but did require rail use for stability w/mult exercises. Physical Therapy Plan Frequency and Duration Frequency of Treatment 1-2x/wk Duration of treatment (weeks) 8 Plan of Care Start Date 06/27/24 Plan of Care End Date 08/22/24 Next Visit Focus/Plan Next Note Type Treatment Note Next Visit Plan POC: core and hip strengthening Balance: continue shuttle balance, hurdles, foam, step taps add leg wt, sport cord. manual and needed PNF
--- NOTE | 2024-07-07 11:34 | PT.OTN ---
Current Diagnoses Spinal stenosis, lumbar region with neurogenic claudication (07/07/24) Postlaminectomy syndrome, not elsewhere classified (07/07/24) Other abnormalities of gait and mobility (07/07/24) Abnormal posture (07/07/24) Weakness (07/07/24) Physical Therapy Treatment Note PT-OP-A Visit Information Start: 04/25/24 10:29 Freq: Status: Active Protocol: Document 07/07/24 10:47 [facility] (Rec: 07/07/24 11:34 [facility] [id number]) Out-Patient Physical Therapy Visit Information Visit Information Visit Type Treatment Note Visit Start Time 10:49 Visit Stop Time 11:29 Visit Number 14/16 Number of WINE SALES REPRESENTATIVE Visits 0 PT-OP-B Current Condition Start: 04/25/24 10:29 Freq: Status: Active Protocol: Document 05/04/24 09:45 [facility] (Rec: 05/04/24 10:51 [facility] [id number]) Current Condition History of Current Condition Onset Date Mar 2 Current Complaints lami L4-5 History of Current Condition Pt had laminectomy L4-5 Dec 2 d/t could hardly bent L leg. Took care of flexiblity issues but is still very still when first gets up. no more pain down leg. Pt reports doens't ahve much pain but feels stiff when standing a long time. Pt reports has to walk slowly to not lose balance. He feels like over the past 3 years he has had a gradual dec in balance and ability to respond to uneven ground. Got to the point where he hasn't been able to ride horses for 3 years and has not been able to paly w/grandkids. 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 He does a lot of the work on this [employer] and [employer]. Has 7 of own horses and board 3 other horses but has a telecommunication systems designer on the property to care of the horses for 15 days a month. Mostly does care of stalls but he does all the repairs of fences etc. Feels like got bent over more in the last year. First started getting back pain and leg issues about 3 years ago. did have neck surgery and was helping friend get horse in trailer and slipped on ice and fell on neck, head and shulder and was paralyzed for 24 hours in legs and arms gradually got movement back. had to be taken by ambulance to [facility]. C3-4 fusion and vertebral replacement (ant and post) performed at [facility] for emergency surgery may 14, 2009, (injury was Apr 27 2008) . During recovery process was very restricted for 5 months. Did have coordination issues after surgery and hasn't gotten full recovery of RUE. this has affected his leg coordination. Another occasion where he cracked a vertebra in back and thinks this may have contributed to stenosis in back. Does report he has BLT restrictiona nd adheres to lifting restrictions, but does feel like it is hard to avoid bending and twisting Treatment Goals Patient/Caregiver Goals Improve walking ability and be able mount his horse and ride again. PT-OP-C Subjective Start: 04/25/24 10:29 Freq: Status: Active Protocol: Document 07/07/24 10:47 [facility] (Rec: 07/07/24 11:34 [facility] [id number]) OP-PT Subjective Patient Comments Patient Comments pt reports L knee hurt a little last week PT-OP-D Balance Start: 04/25/24 10:29 Freq: Status: Active Protocol: Document 05/04/24 09:45 [facility] (Rec: 05/04/24 10:51 [facility] [id number]) Balance Tests Single Limb Standing Single Limb- Right able to lift leg only Single Limb- Left able to lift leg only PT-OP-E Functional Tests Start: 05/04/24 12:27 Freq: Status: Active Protocol: Document 06/27/24 10:50 [facility] (Rec: 06/27/24 12:02 [facility] [id number]) Functional Tests Dynamic Gait Index (DGI) Score 1524 PT-OP-F Manual Assessment Start: 04/25/24 10:29 Freq: Status: Active Protocol: Document 05/04/24 09:45 [facility] (Rec: 05/04/24 10:51 [facility] [id number]) Manual Assessments Joint Mobility Assessment Joint Mobility Assessment significant lack of hip mobility PT-OP-G Mobility & Gait Start: 04/25/24 10:29 Freq: Status: Active Protocol: Document 05/04/24 09:45 [facility] (Rec: 05/04/24 10:51 [facility] [id number]) OP Gait Assessment Comments Gait Comments flexed trunk, dec RLE stance time, dec B foot clearance, lat L lean w/WB on LLE PT-OP-J Posture/Palpation/Skin Start: 04/25/24 10:29 Freq: Status: Active Protocol: Document 06/27/24 10:50 [facility] (Rec: 06/27/24 12:02 [facility] [id number]) Posture Evaluation [facility] Postural Classification System Lumbar Protective Mechanism Left AP 1 Lumbar Protective Mechanism Right AP 1 Lumbar Protective Mechanism Left PA 1 Lumbar Protective Mechanism Right PA 1 PT-OP-K Range of Motion Start: 04/25/24 10:29 Freq: Status: Active Protocol: Document 05/04/24 09:45 [facility] (Rec: 05/04/24 10:51 [facility] [id number]) Lumbar Spine Range of Motion Lumbar Spine Active Percentage Comments n/t d/t restrictions PT-OP-L Special Tests Start: 04/25/24 10:29 Freq: Status: Active Protocol: Document 05/04/24 09:45 [facility] (Rec: 05/04/24 10:51 [facility] [id number]) Special Tests Lumbar Spine Special Tests SLR Test Results R>L HS tightness Slump Test Results neg -dec HS length Other Special Tests Special Tests tone noted in RLE PT-OP-M Strength Start: 04/25/24 10:29 Freq: Status: Active Protocol: Document 06/27/24 10:50 [facility] (Rec: 06/27/24 12:02 [facility] [id number]) Hip Strength Hip Manual Muscle Testing Right Flexion (L2) 4- Good- Abduction 4- Good- External Rotation 4 Good Internal Rotation 4 Good Left Flexion (L2) 4 Good Abduction 4 Good External Rotation 4 Good Internal Rotation 4+ Good+ Knee Strength Knee Manual Muscle Testing Right Flexion (S2) 4- Good- Extension (L3) 5 Normal Left Flexion (S2) 4+ Good+ Extension (L3) 5 Normal Ankle/Foot Strength Ankle and Foot Manual Muscle Testing Right Dorsiflexion (L4) 4+ Good+ Plantarflexion (S1) 4+ Good+ Left Dorsiflexion (L4) 5 Normal Plantarflexion (S1) 4+ Good+ Comments PF tested seated B PT-OP-Q Treatments Start: 04/25/24 10:29 Freq: Status: Active Protocol: Document 07/07/24 10:47 [facility] (Rec: 07/07/24 11:34 [facility] [id number]) Gym Equipment Shuttle Recovery unilateral squat Resistance 62# (2 navy) Reps/Time 15 reps each LE Therapeutic Exercises Standing Exercises squat Standing Exercise Name on black foam Side bilateral Reps/Minutes 15 Comments partial range DF Standing Exercise Name back at rail holding Side bilateral Reps/Minutes 20 hip rotation Standing Exercise Name 1.fwd circles 2. backwards circles Side right Equipment Used rail Reps/Minutes 10 ea directions Comments cues posture Neuro Re-Education Treatment Balance Activities grapevine Comments 2x15ft B step taps Equipment 2# leg wt, 8 step Reps/Duration 12 B Comments cues dec rail use foam Details NBOS EC black foam hurdles Details 2# wt Equipment 6 hurdles, hallway Comments 1. fwd reciprocally /c 1 HR x6 2. sidestep /c 1 HR x1 B PT-OP-T Assessment and Plan Start: 04/25/24 10:29 Freq: Status: Active Protocol: Document 07/07/24 10:47 [facility] (Rec: 07/07/24 11:34 [facility] [id number]) Physical Therapy Assessment Goals balance Impairment DGI 11/17 Short Term Goal (STG) Pt will improve DGI to at least 13 to dec fall risk STG Duration achieved 2/ Wireless Store Manager Goal (LTG) Pt will improve DGI to at least 18 to dec fall risk 06/27- LTG Duration 4 activity Wireless Store Manager Goal (LTG) Pt will be able to ride horse and participate in all care of property. 2/3-feels stronger on the property and getting back to full work, hasn't rode a horse 3/3-has not gotten on a horse; is doing everything he needs to but needs to step higher w/ bridger LTG Duration 08/22 strength Short Term Goal (STG) Pt will be indep w/HEP STG Duration achieved advancing as able Fdc Goal (LTG) Pt will score at least 4+/5 on all BLE MMT and at least 3/5 on LPM to show improved stability to allow greater ease w/typical activities. 2/3-improving LE strength 3/3-improving LTG Duration 08/22 Assessment Summary Assessment Pt did better with strength and balance tasks today with less rail use. Cues given to encourage this along w/to inc ROM w/exercises. Physical Therapy Plan Frequency and Duration Frequency of Treatment 1-2x/wk Duration of treatment (weeks) 8 Plan of Care Start Date 06/27/24 Plan of Care End Date 08/22/24 Next Visit Focus/Plan Next Note Type Treatment Note Next Visit Plan core and hip strengthening Balance: continue shuttle balance, hurdles, foam, step taps add leg wt, sport cord. manual and needed PNF
--- NOTE | 2024-07-12 09:00 | PT.OTN ---
Current Diagnoses Spinal stenosis, lumbar region with neurogenic claudication (07/12/24) Postlaminectomy syndrome, not elsewhere classified (07/12/24) Other abnormalities of gait and mobility (07/12/24) Abnormal posture (07/12/24) Weakness (07/12/24) Physical Therapy Treatment Note PT-OP-A Visit Information Start: 04/25/24 10:29 Freq: Status: Active Protocol: Document 07/12/24 08:20 [facility] (Rec: 07/12/24 08:58 [facility] [id number]) Out-Patient Physical Therapy Visit Information Visit Information Visit Type Treatment Note Visit Start Time 08:20 Visit Stop Time 09:00 Visit Number 15 Number of CARTOGRAPHIC ENGINEER Visits 0 PT-OP-B Current Condition Start: 04/25/24 10:29 Freq: Status: Active Protocol: Document 05/04/24 09:45 [facility] (Rec: 05/04/24 10:51 [facility] [id number]) Current Condition History of Current Condition Onset Date Mar 2 Current Complaints lami L4-5 History of Current Condition Pt had laminectomy L4-5 Mar 2 d/t could hardly bent L leg. Took care of flexiblity issues but is still very still when first gets up. no more pain down leg. Pt reports doens't ahve much pain but feels stiff when standing a long time. Pt reports has to walk slowly to not lose balance. He feels like over the past 3 years he has had a gradual dec in balance and ability to respond to uneven ground. Got to the point where he hasn't been able to ride horses for 3 years and has not been able to paly w/grandkids. 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 Has 7 of own horses and board 3 other horses but has a fitness supervisor on the property to care of the horses for 15 days a month. Mostly does care of stalls but he does all the repairs of fences etc. Feels like got bent over more in the last year. First started getting back pain and leg issues about 3 years ago. did have neck surgery and was helping friend get horse in trailer and slipped on ice and fell on neck, head and shulder and was paralyzed for 24 hours in legs and arms gradually got movement back. had to be taken by ambulance to [facility]. C3-4 fusion and vertebral replacement (ant and post) performed at [facility] for emergency surgery may 14, 2009, (injury was Apr 27 2008) . During recovery process was very restricted for 5 months. Did have coordination issues after surgery and hasn't gotten full recovery of RUE. this has affected his leg coordination. Another occasion where he cracked a vertebra in back and thinks this may have contributed to stenosis in back. Does report he has BLT restrictiona nd adheres to lifting restrictions, but does feel like it is hard to avoid bending and twisting Treatment Goals Patient/Caregiver Goals Improve walking ability and be able mount his horse and ride again. PT-OP-C Subjective Start: 04/25/24 10:29 Freq: Status: Active Protocol: Document 07/12/24 08:20 [facility] (Rec: 07/12/24 08:58 [facility] [id number]) OP-PT Subjective Patient Comments Patient Comments pt reports L leg has felt weak since his trip. PT-OP-D Balance Start: 04/25/24 10:29 Freq: Status: Active Protocol: Document 05/04/24 09:45 [facility] (Rec: 05/04/24 10:51 [facility] [id number]) Balance Tests Single Limb Standing Single Limb- Right able to lift leg only Single Limb- Left able to lift leg only PT-OP-E Functional Tests Start: 05/04/24 12:27 Freq: Status: Active Protocol: Document 06/27/24 10:50 [facility] (Rec: 06/27/24 12:02 [facility] [id number]) Functional Tests Dynamic Gait Index (DGI) Score 15/24 PT-OP-F Manual Assessment Start: 04/25/24 10:29 Freq: Status: Active Protocol: Document 05/04/24 09:45 [facility] (Rec: 05/04/24 10:51 [facility] [id number]) Manual Assessments Joint Mobility Assessment Joint Mobility Assessment significant lack of hip mobility PT-OP-G Mobility & Gait Start: 04/25/24 10:29 Freq: Status: Active Protocol: Document 05/04/24 09:45 [facility] (Rec: 05/04/24 10:51 [facility] [id number]) OP Gait Assessment Comments Gait Comments flexed trunk, dec RLE stance time, dec B foot clearance, lat L lean w/WB on LLE PT-OP-J Posture/Palpation/Skin Start: 04/25/24 10:29 Freq: Status: Active Protocol: Document 06/27/24 10:50 [facility] (Rec: 06/27/24 12:02 [facility] [id number]) Posture Evaluation [facility] Postural Classification System Lumbar Protective Mechanism Left AP 1 Lumbar Protective Mechanism Right AP 1 Lumbar Protective Mechanism Left PA 1 Lumbar Protective Mechanism Right PA 1 PT-OP-K Range of Motion Start: 04/25/24 10:29 Freq: Status: Active Protocol: Document 05/04/24 09:45 [facility] (Rec: 05/04/24 10:51 [facility] [id number]) Lumbar Spine Range of Motion Lumbar Spine Active Percentage Comments n/t d/t restrictions PT-OP-L Special Tests Start: 04/25/24 10:29 Freq: Status: Active Protocol: Document 05/04/24 09:45 [facility] (Rec: 05/04/24 10:51 [facility] [id number]) Special Tests Lumbar Spine Special Tests SLR Test Results R>L HS tightness Slump Test Results neg -dec HS length Other Special Tests Special Tests tone noted in RLE PT-OP-M Strength Start: 04/25/24 10:29 Freq: Status: Active Protocol: Document 06/27/24 10:50 [facility] (Rec: 06/27/24 12:02 [facility] [id number]) Hip Strength Hip Manual Muscle Testing Right Flexion (L2) 4- Good- Abduction 4- Good- External Rotation 4 Good Internal Rotation 4 Good Left Flexion (L2) 4 Good Abduction 4 Good External Rotation 4 Good Internal Rotation 4+ Good+ Knee Strength Knee Manual Muscle Testing Right Flexion (S2) 4- Good- Extension (L3) 5 Normal Left Flexion (S2) 4+ Good+ Extension (L3) 5 Normal Ankle/Foot Strength Ankle and Foot Manual Muscle Testing Right Dorsiflexion (L4) 4+ Good+ Plantarflexion (S1) 4+ Good+ Left Dorsiflexion (L4) 5 Normal Plantarflexion (S1) 4+ Good+ Comments PF tested seated B PT-OP-Q Treatments Start: 04/25/24 10:29 Freq: Status: Active Protocol: Document 07/12/24 08:20 [facility] (Rec: 07/12/24 08:58 [facility] [id number]) Gym Equipment Cable Column (Body Solid) Hip Abduction Resistance 3 Reps/Time 15 Hip Adduction Resistance 5 Reps/Time 30 Shuttle Recovery unilateral squat Resistance 62# (2 navy) Reps/Time 20 reps each LE Shuttle Balance red clips Comments fwd: WBOS and NBOS side: WBOS cues dec rail use Therapeutic Exercises Standing Exercises wall posture Standing Exercise Name wall roll up w/UE ext Reps/Minutes 90 sec Comments working on as much of tspine on wall that can get step up Standing Exercise Name 1. lat step up then over and down 2. step up fwd and back down Side bilateral Reps/Minutes 10 ea Comments cues little rail use as can Neuro Re-Education Treatment Balance Activities hurdles Details 4# wt Equipment 6 hurdles, hallway Reps/Duration cues to dec HR Comments 1. fwd reciprocally /c 1 HR x6 2. sidestep /c 1 HR x2 B PT-OP-T Assessment and Plan Start: 04/25/24 10:29 Freq: Status: Active Protocol: Document 07/12/24 08:20 [facility] (Rec: 07/12/24 08:58 [facility] [id number]) Physical Therapy Assessment Goals balance Impairment DGI 11/17 Short Term Goal (STG) Pt will improve DGI to at least 13 to dec fall risk STG Duration achieved / Longterm Goal (LTG) Pt will improve DGI to at least 18 to dec fall risk 06/27- LTG Duration 07/27 activity Longterm Goal (LTG) Pt will be able to ride horse and participate in all care of property. 2/3-feels stronger on the property and getting back to full work, hasn't rode a horse 3/3-has not gotten on a horse; is doing everything he needs to but needs to step higher w/ bridger LTG Duration 08/22 strength Short Term Goal (STG) Pt will be indep w/HEP STG Duration achieved advancing as able Lead Engineer Goal (LTG) Pt will score at least 4+/5 on all BLE MMT and at least 3/5 on LPM to show improved stability to allow greater ease w/typical activities. 2/3-improving LE strength 3/3-improving LTG Duration 08/22 Assessment Summary Assessment Pt challenged w/hip abd machine today and feels like leg press really helps his LE strength overall. He did well when cued to dec UE support on rails but does tend to reach for rail Physical Therapy Plan Frequency and Duration Frequency of Treatment 1-2x/wk Duration of treatment (weeks) 8 Plan of Care Start Date 06/27/24 Plan of Care End Date 08/22/24 Next Visit Focus/Plan Next Note Type Treatment Note Next Visit Plan core and hip strengthening Balance: continue shuttle balance, hurdles, foam, step taps add leg wt, sport cord. manual and needed PNF
--- NOTE | 2024-08-03 13:44 | PT.OTN ---
Current Diagnoses Spinal stenosis, lumbar region with neurogenic claudication (08/03/24) Postlaminectomy syndrome, not elsewhere classified (08/03/24) Other abnormalities of gait and mobility (08/03/24) Abnormal posture (08/03/24) Weakness (08/03/24) Physical Therapy Treatment Note PT-OP-A Visit Information Start: 04/25/24 10:29 Freq: Status: Active Protocol: Document 08/03/24 13:04 [facility] (Rec: 08/03/24 13:49 [facility] Laptop) Out-Patient Physical Therapy Visit Information Visit Information Visit Type Treatment Note Visit Note 08/03/24: start of 4 approved visits. Visit Start Time 13:04 Visit Stop Time 13:44 Visit Number 16 (/ approved visits) Number of LOCAL DRIVER Visits 1 Precautions Precautions no twisting, bending, lifting >10 lbs PT-OP-B Current Condition Start: 04/25/24 10:29 Freq: Status: Active Protocol: Document 05/04/24 09:45 [facility] (Rec: 05/04/24 10:51 [facility] [id number]) Current Condition History of Current Condition Onset Date Dec 2 Current Complaints lami L4-5 History of Current Condition Pt had laminectomy L4-5 Dec 2 d/t could hardly bent L leg. Took care of flexiblity issues but is still very still when first gets up. no more pain down leg. Pt reports doens't ahve much pain but feels stiff when standing a long time. Pt reports has to walk slowly to not lose balance. He feels like over the past 3 years he has had a gradual dec in balance and ability to respond to uneven ground. Got to the point where he hasn't been able to ride horses for 3 years and has not been able to paly w/grandkids. 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 Has 7 of own horses and board 3 other horses but has a rock climbing team member on the property to care of the horses for 15 days a month. Mostly does care of stalls but he does all the repairs of fences etc. Feels like got bent over more in the last year. First started getting back pain and leg issues about 3 years ago. did have neck surgery and was helping friend get horse in trailer and slipped on ice and fell on neck, head and shulder and was paralyzed for 24 hours in legs and arms gradually got movement back. had to be taken by ambulance to [facility]. C3-4 fusion and vertebral replacement (ant and post) performed at [facility] for emergency surgery may 14, 2009, (injury was Apr 27 2008) . During recovery process was very restricted for 5 months. Did have coordination issues after surgery and hasn't gotten full recovery of RUE. this has affected his leg coordination. Another occasion where he cracked a vertebra in back and thinks this may have contributed to stenosis in back. Does report he has BLT restrictiona nd adheres to lifting restrictions, but does feel like it is hard to avoid bending and twisting Treatment Goals Patient/Caregiver Goals Improve walking ability and be able mount his horse and ride again. PT-OP-C Subjective Start: 04/25/24 10:29 Freq: Status: Active Protocol: Document 08/03/24 13:04 [facility] (Rec: 08/03/24 13:49 [facility] Laptop) OP-PT Subjective Patient Comments Patient Comments Pt reports thinks pulled something (pointed to distal HS) in L leg when out yard work. PT-OP-D Balance Start: 04/25/24 10:29 Freq: Status: Active Protocol: Document 05/04/24 09:45 [facility] (Rec: 05/04/24 10:51 [facility] [id number]) Balance Tests Single Limb Standing Single Limb- Right able to lift leg only Single Limb- Left able to lift leg only PT-OP-E Functional Tests Start: 05/04/24 12:27 Freq: Status: Active Protocol: Document 06/27/24 10:50 [facility] (Rec: 06/27/24 12:02 [facility] [id number]) Functional Tests Dynamic Gait Index (DGI) Score 24 PT-OP-F Manual Assessment Start: 04/25/24 10:29 Freq: Status: Active Protocol: Document 05/04/24 09:45 [facility] (Rec: 05/04/24 10:51 [facility] [id number]) Manual Assessments Joint Mobility Assessment Joint Mobility Assessment significant lack of hip mobility PT-OP-G Mobility & Gait Start: 04/25/24 10:29 Freq: Status: Active Protocol: Document 05/04/24 09:45 [facility] (Rec: 05/04/24 10:51 [facility] [id number]) OP Gait Assessment Comments Gait Comments flexed trunk, dec RLE stance time, dec B foot clearance, lat L lean w/WB on LLE PT-OP-J Posture/Palpation/Skin Start: 04/25/24 10:29 Freq: Status: Active Protocol: Document 06/27/24 10:50 [facility] (Rec: 06/27/24 12:02 [facility] [id number]) Posture Evaluation [facility] Postural Classification System Lumbar Protective Mechanism Left AP 1 Lumbar Protective Mechanism Right AP 1 Lumbar Protective Mechanism Left PA 1 Lumbar Protective Mechanism Right PA 1 PT-OP-K Range of Motion Start: 04/25/24 10:29 Freq: Status: Active Protocol: Document 05/04/24 09:45 [facility] (Rec: 05/04/24 10:51 [id number] Lumbar Spine Range of Motion Lumbar Spine Active Percentage Comments n/t d/t restrictions PT-OP-L Special Tests Start: 04/25/24 10:29 Freq: Status: Active Protocol: Document 05/04/24 09:45 [facility] (Rec: 05/04/24 10:51 [facility] [id number]) Special Tests Lumbar Spine Special Tests SLR Test Results R>L HS tightness Slump Test Results neg -dec HS length Other Special Tests Special Tests tone noted in RLE PT-OP-M Strength Start: 04/25/24 10:29 Freq: Status: Active Protocol: Document 06/27/24 10:50 [facility] (Rec: 06/27/24 12:02 [facility] [id number]) Hip Strength Hip Manual Muscle Testing Right Flexion (L2) 4- Good- Abduction 4- Good- External Rotation 4 Good Internal Rotation 4 Good Left Flexion (L2) 4 Good Abduction 4 Good External Rotation 4 Good Internal Rotation 4+ Good+ Knee Strength Knee Manual Muscle Testing Right Flexion (S2) 4- Good- Extension (L3) 5 Normal Left Flexion (S2) 4+ Good+ Extension (L3) 5 Normal Ankle/Foot Strength Ankle and Foot Manual Muscle Testing Right Dorsiflexion (L4) 4+ Good+ Plantarflexion (S1) 4+ Good+ Left Dorsiflexion (L4) 5 Normal Plantarflexion (S1) 4+ Good+ Comments PF tested seated B PT-OP-Q Treatments Start: 04/25/24 10:29 Freq: Status: Active Protocol: Document 08/03/24 13:04 [facility] (Rec: 08/03/24 13:49 [facility]) Therapeutic Exercises Supine Exercises stretch Supine Exercise Name HS, SKTC, Piriformis Side bilateral Resistance manual Reps/Minutes 60 SH x2 each Sitting Exercises open book Sitting Exercise Name Reviewed Side bilateral Reps/Minutes 5 reps Comments cued Lower body stationary, TS and little LS rotation Standing Exercises wall posture Standing Exercise Name wall roll up w/UE ER and ext Equipment Used double rolled towel behind head Reps/Minutes 10 SH x 5 reps Comments working on as much of tspine on wall that can get DF Standing Exercise Name back on wall Side bilateral Reps/Minutes 20 Neuro Re-Education Treatment Balance Activities foam Details Semi tandem & tandem EO Equipment black foam, //bars PRN Comments HTs CGA occ contat rail Tandem: 3-4 sec no UE support hurdles Details 2# wt Equipment 6 hurdles, hallway Reps/Duration cues to dec HR Comments 1. fwd reciprocally /c 1 HR x6 3 laps 2. sidestep /c 1 HR x3 B PT-OP-T Assessment and Plan Start: 04/25/24 10:29 Freq: Status: Active Protocol: Document 08/03/24 13:04 [facility] (Rec: 08/03/24 13:49 [facility]) Physical Therapy Assessment Goals balance Impairment DGI 11/17 Short Term Goal (STG) Pt will improve DGI to at least 13 to dec fall risk STG Duration achieved 2/3 Snf Goal (LTG) Pt will improve DGI to at least 18 to dec fall risk 06/27- LTG Duration 4/ activity Snf Goal (LTG) Pt will be able to ride horse and participate in all care of property. 2/3-feels stronger on the property and getting back to full work, hasn't rode a horse 3/3-has not gotten on a horse; is doing everything he needs to but needs to step higher w/ bridger LTG Duration 08/22 strength Short Term Goal (STG) Pt will be indep w/HEP STG Duration achieved advancing as able Snf Goal (LTG) Pt will score at least 4+/5 on all BLE MMT and at least 3/5 on LPM to show improved stability to allow greater ease w/typical activities. 2/3-improving LE strength 3/-improving LTG Duration 08/22 Assessment Summary Assessment Pt improved hip mobility post manual support stretching. Continued balance progression with hip and knee flexion, needed decrease weight today and challenge decr UE support. Was able to decrease KEVIN with HTs. Physical Therapy Plan Frequency and Duration Frequency of Treatment 1-2x/wk Duration of treatment (weeks) 8 Plan of Care Start Date 06/27/24 Plan of Care End Date 08/22/24 Therapeutic Interventions Therapeutic Interventions Balance Training,Coordination Training,Gait Training,Home Exercise Program,Joint Mobilizations,Manual Therapy, Neuromuscular Re-education, Orthotic/Prosthetic Management ,Patient/Caregiver Education, Self-Care/Home Management,Soft Tissue Mobilization,Taping, Therapeutic Activities, Therapeutic Exercises Modalities Cold Pack/Ice Massage,Electric Stimulation,Hot Packs, Infrared Therapy,Ultrasound Next Visit Focus/Plan Next Note Type Treatment Note Next Visit Plan 3 more visits approved: COntinue core and hip strengthening Balance: continue shuttle balance, hurdles, foam, step taps add leg wt, sport cord. manual and needed PNF
--- NOTE | 2024-08-09 10:47 | PT.OTN ---
Current Diagnoses Spinal stenosis, lumbar region with neurogenic claudication (08/09/24) Postlaminectomy syndrome, not elsewhere classified (08/09/24) Other abnormalities of gait and mobility (08/09/24) Abnormal posture (08/09/24) Weakness (08/09/24) Physical Therapy Treatment Note PT-OP-A Visit Information Start: 04/25/24 10:29 Freq: Status: Active Protocol: Document 08/09/24 09:01 [facility] (Rec: 08/09/24 10:46 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 (Rec: 05/04/24 10:51 [facility] [id number]) Current Condition History of Current Condition Onset Date Dec 2 Current Complaints lami L4-5 History of Current Condition Pt had laminectomy L4-5 Dec 2 d/t could hardly bent L leg. Took care of flexiblity issues but is still very still when first gets up. no more pain down leg. Pt reports doens't ahve much pain but feels stiff when standing a long time. Pt reports has to walk slowly to not lose balance. He feels like over the past 3 years he has had a gradual dec in balance and ability to respond to uneven ground. Got to the point where he hasn't been able to ride horses for 3 years and has not been able to paly w/grandkids. 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 Has 7 of own horses and board 3 other horses but has a heel shaver on the property to care of the horses for 15 days a month. Mostly does care of stalls but he does all the repairs of fences etc. Feels like got bent over more in the last year. First started getting back pain and leg issues about 3 years ago. did have neck surgery and was helping friend get horse in trailer and slipped on ice and fell on neck, head and shulder and was paralyzed for 24 hours in legs and arms gradually got movement back. had to be taken by ambulance to [facility]. C3-4 fusion and vertebral replacement (ant and post) performed at [facility] for emergency surgery may 14, 2009, (injury was Apr 27 2008) . During recovery process was very restricted for 5 months. Did have coordination issues after surgery and hasn't gotten full recovery of RUE. this has affected his leg coordination. Another occasion where he cracked a vertebra in back and thinks this may have contributed to stenosis in back. Does report he has BLT restrictiona nd adheres to lifting restrictions, but does feel like it is hard to avoid bending and twisting Treatment Goals Patient/Caregiver Goals Improve walking ability and be able mount his horse and ride again. PT-OP-C Subjective Start: 04/25/24 10:29 Freq: Status: Active Protocol: Document 08/09/24 09:01 [facility] (Rec: 08/09/24 10:46 [facility] [id number]) OP-PT Subjective Patient Comments Patient Comments Pt reports he is making slow progress. He has been at the gym and doing bike and leg press PT-OP-D Balance Start: 04/25/24 10:29 Freq: Status: Active Protocol: Document 05/04/24 09:45 [facility] (Rec: 05/04/24 10:51 [facility] [id number]) Balance Tests Single Limb Standing Single Limb- Right able to lift leg only Single Limb- Left able to lift leg only PT-OP-E Functional Tests Start: 05/04/24 12:27 Freq: Status: Active Protocol: Document 08/09/24 09:01 [facility] (Rec: 08/09/24 10:46 [facility] [id number]) Functional Tests Dynamic Gait Index (DGI) Score PT-OP-F Manual Assessment Start: 04/25/24 10:29 Freq: Status: Active Protocol: Document 05/04/24 09:45 [facility] (Rec: 05/04/24 10:51 [facility] [id number]) Manual Assessments Joint Mobility Assessment Joint Mobility Assessment significant lack of hip mobility PT-OP-G Mobility & Gait Start: 04/25/24 10:29 Freq: Status: Active Protocol: Document 05/04/24 09:45 [facility] (Rec: 05/04/24 10:51 [facility] [id number]) OP Gait Assessment Comments Gait Comments flexed trunk, dec RLE stance time, dec B foot clearance, lat L lean w/WB on LLE PT-OP-J Posture/Palpation/Skin Start: 04/25/24 10:29 Freq: Status: Active Protocol: Document 08/09/24 09:01 [facility] (Rec: 08/09/24 10:46 [facility] [id number]) Posture Evaluation [facility] Postural Classification System Lumbar Protective Mechanism Left AP 1 Lumbar Protective Mechanism Right AP 1 Lumbar Protective Mechanism Left PA 1 Lumbar Protective Mechanism Right PA 1 PT-OP-K Range of Motion Start: 04/25/24 10:29 Freq: Status: Active Protocol: Document 05/04/24 09:45 [facility] (Rec: 05/04/24 10:51 [facility] [id number]) Lumbar Spine Range of Motion Lumbar Spine Active Percentage Comments n/t d/t restrictions PT-OP-L Special Tests Start: 04/25/24 10:29 Freq: Status: Active Protocol: Document 05/04/24 09:45 [facility] (Rec: 05/04/24 10:51 [facility] [id number]) Special Tests Lumbar Spine Special Tests SLR Test Results R>L HS tightness Slump Test Results neg -dec HS length Other Special Tests Special Tests tone noted in RLE PT-OP-M Strength Start: 04/25/24 10:29 Freq: Status: Active Protocol: Document 08/09/24 09:01 [facility] (Rec: 08/09/24 10:46 [facility] [id number]) Hip Strength Hip Manual Muscle Testing Right Flexion (L2) 4 Good Abduction 4- Good- External Rotation 4+ Good+ Internal Rotation 5 Normal Left Flexion (L2) 5 Normal Abduction 4 Good External Rotation 4+ Good+ Internal Rotation 5 Normal Knee Strength Knee Manual Muscle Testing Right Flexion (S2) 4+ Good+ Extension (L3) 5 Normal Left Flexion (S2) 5 Normal Extension (L3) 5 Normal Ankle/Foot Strength Ankle and Foot Manual Muscle Testing Right Dorsiflexion (L4) 4+ Good+ Plantarflexion (S1) 4+ Good+ Left Dorsiflexion (L4) 5 Normal Plantarflexion (S1) 5 Normal Comments PF tested seated B PT-OP-Q Treatments Start: 04/25/24 10:29 Freq: Status: Active Protocol: Document 08/09/24 09:01 [facility] (Rec: 08/09/24 10:46 [facility] [id number]) Gym Equipment Cable Column (Body Solid) Leg Extension Details cues set up and form Resistance 2 Reps/Time 15 Leg Curl Details cues of how to set up Resistance 3 Reps/Time 15 row Details cues core and scap Resistance 4 Reps/Time 10 Therapeutic Exercises Other Exercises isometrics Other Exercise Name B LE MMT and LPM all planes Reps/Minutes 8 min Neuro Re-Education Treatment Balance Activities grapevine Comments 2x20ft B Dynamic gait Comments backwards walking x30ft cues lg steps w/LLE testing Comments DGI hurdles Details 4# wt Equipment 6 hurdles, hallway Reps/Duration cues to dec HR Comments 1. fwd reciprocally /c 1 HR x6 2. sidestep /c 1 HR x2 B PT-OP-T Assessment and Plan Start: 04/25/24 10:29 Freq: Status: Active Protocol: Document 08/09/24 09:01 [facility] (Rec: 08/09/24 10:46 [facility] [id number]) Physical Therapy Assessment Goals balance Impairment DGI 11/17 Short Term Goal (STG) Pt will improve DGI to at least 13 to dec fall risk STG Duration achieved 2/ Help Desk Coordinator Goal (LTG) Pt will improve DGI to at least 18 to dec fall risk 06/27- LTG Duration achieved to 18 08/09 activity Help Desk Coordinator Goal (LTG) Pt will be able to ride horse and participate in all care of property. 2/3-feels stronger on the property and getting back to full work, hasn't rode a horse 33-has not gotten on a horse; is doing everything he needs to but needs to step higher w/ bridger 08/09-Some days stiffer than others, not avoiding anything. Hasn't ridden a horse LTG Duration 08/22 strength Short Term Goal (STG) Pt will be indep w/HEP STG Duration achieved advancing as able Help Desk Coordinator Goal (LTG) Pt will score at least 4+/5 on all BLE MMT and at least 3/5 on LPM to show improved stability to allow greater ease w/typical activities. 2/3-improving LE strength 3/3-improving 08/09-improved LTG Duration 09/02 Assessment Summary Assessment Pt cont to improve w/balance and strength with greater ease to return to full activities. He is working out at the gym and did well w/further edu on machines to use today. Plan to DC at the end of this month to indep HEP. Further visits this month to focus on strength, balance and independence w/HEP Physical Therapy Plan Frequency and Duration Frequency of Treatment 1-2x/wk Duration of treatment (weeks) 4 Plan of Care Start Date 08/09/24 Plan of Care End Date 09/02/24 Therapeutic Interventions Therapeutic Interventions Balance Training,Coordination Training,Gait Training,Home Exercise Program,Joint Mobilizations,Manual Therapy, Neuromuscular Re-education, Orthotic/Prosthetic Management ,Patient/Caregiver Education, Self-Care/Home Management,Soft Tissue Mobilization,Taping, Therapeutic Activities, Therapeutic Exercises Modalities Cold Pack/Ice Massage,Electric Stimulation,Hot Packs, Infrared Therapy,Ultrasound Next Visit Focus/Plan Next Note Type Treatment Note Next Visit Plan 2 more visits approved: Work towards DC for HEP and cont balance work
--- NOTE | 2024-08-09 10:47 | PT.OPPOC ---
Physical, Occupational & Speech Therapy At [facility] Current Diagnoses Spinal stenosis, lumbar region with neurogenic claudication (08/09/24) Postlaminectomy syndrome, not elsewhere classified (08/09/24) Other abnormalities of gait and mobility (08/09/24) Abnormal posture (08/09/24) Weakness (08/09/24) Visit Care Team Role Provider Type Gomez Cash MD Family Provider Physician Primary Care Provider Specialty: Internal Medicine Address: [address] [place] [address], [address], [address] Email: [email or web address] Partha Little MD Attending Provider Non-Staff Referring Provider Specialty: Orthopedics Orthopedic Surgery Address: [address] [place] [address], [id number] Email: Plan Of Care PT-OP-B Current Condition Start: 04/25/24 10:29 Freq: Status: Active Protocol: Document 05/04/24 09:45 [facility] (Rec: 05/04/24 10:51 [facility] [id number]) Current Condition History of Current Condition Onset Date Mar 2 Current Complaints lami L4-5 History of Current Condition Pt had laminectomy L4-5 Dec 2 d/t could hardly bent L leg. Took care of flexiblity issues but is still very still when first gets up. no more pain down leg. Pt reports doens't ahve much pain but feels stiff when standing a long time. Pt reports has to walk slowly to not lose balance. He feels like over the past 3 years he has had a gradual dec in balance and ability to respond to uneven ground. Got to the point where he hasn't been able to ride horses for 3 years and has not been able to paly w/grandkids. 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 Has 7 of own horses and board 3 other horses but has a refinery operator on the property to care of the horses for 15 days a month. Mostly does care of stalls but he does all the repairs of fences etc. Feels like got bent over more in the last year. First started getting back pain and leg issues about 3 years ago. did have neck surgery and was helping friend get horse in trailer and slipped on ice and fell on neck, head and shulder and was paralyzed for 24 hours in legs and arms gradually got movement back. had to be taken by ambulance to [facility]. C3-4 fusion and vertebral replacement (ant and post) performed at [facility] for emergency surgery may 14, 2009, (injury was Apr 27 2008) . During recovery process was very restricted for 5 months. Did have coordination issues after surgery and hasn't gotten full recovery of RUE. this has affected his leg coordination. Another occasion where he cracked a vertebra in back and thinks this may have contributed to stenosis in back. Does report he has BLT restrictiona nd adheres to lifting restrictions, but does feel like it is hard to avoid bending and twisting Treatment Goals Patient/Caregiver Goals Improve walking ability and be able mount his horse and ride again. PT-OP-T Assessment and Plan Start: 04/25/24 10:29 Freq: Status: Active Protocol: Document 08/09/24 09:01 [facility] (Rec: 08/09/24 10:46 [facility] [id number]) Physical Therapy Assessment Goals balance Impairment DGI 11/17 Short Term Goal (STG) Pt will improve DGI to at least 13 to dec fall risk STG Duration achieved 2/ Screen Print Operator Goal (LTG) Pt will improve DGI to at least 18 to dec fall risk 06/27- LTG Duration achieved to 18 08/09 activity [facility] Goal (LTG) Pt will be able to ride horse and participate in all care of property. 2/3-feels stronger on the property and getting back to full work, hasn't rode a horse 33-has not gotten on a horse; is doing everything he needs to but needs to step higher w/ bridger 08/09-Some days stiffer than others, not avoiding anything. Hasn't ridden a horse LTG Duration 08/22 strength Short Term Goal (STG) Pt will be indep w/HEP STG Duration achieved advancing as able Screen Print Operator Goal (LTG) Pt will score at least 4+/5 on all BLE MMT and at least 3/5 on LPM to show improved stability to allow greater ease w/typical activities. 2/3-improving LE strength 06/27-improving 08/09-improved LTG Duration 09/02 Assessment Summary Assessment Pt cont to improve w/balance and strength with greater ease to return to full activities. He is working out at the gym and did well w/further edu on machines to use today. Plan to DC at the end of this month to indep HEP. Further visits this month to focus on strength, balance and independence w/HEP Physical Therapy Plan Frequency and Duration Frequency of Treatment 1-2x/wk Duration of treatment (weeks) 4 Plan of Care Start Date 08/09/24 Plan of Care End Date 09/02/24 Therapeutic Interventions Therapeutic Interventions Balance Training,Coordination Training,Gait Training,Home Exercise Program,Joint Mobilizations,Manual Therapy, Neuromuscular Re-education, Orthotic/Prosthetic Management ,Patient/Caregiver Education, Self-Care/Home Management,Soft Tissue Mobilization,Taping, Therapeutic Activities, Therapeutic Exercises Modalities Cold Pack/Ice Massage,Electric Stimulation,Hot Packs, Infrared Therapy,Ultrasound Next Visit Focus/Plan Next Note Type Treatment Note Next Visit Plan 2 more visits approved: Work towards DC for HEP and cont balance work Plan of Care Dates Plan of Care Start Date 08/09/24 Plan of Care End Date 09/02/24 Electronically Signed by: Zuly Smyth, PT 08/09/24 8611 If you are in agreement with this Plan of Care, please return a signed and dated copy. I have reviewed this Plan of Care and certify that the skilled therapy services above are required to meet the patient?s needs. Physician Signature Date Printed Name and Credentials Clinical Instructor Signature Printed Name and Credentials
--- NOTE | 2024-08-16 18:13 | PT.OTN ---
Current Diagnoses Spinal stenosis, lumbar region with neurogenic claudication (08/16/24) Postlaminectomy syndrome, not elsewhere classified (08/16/24) Other abnormalities of gait and mobility (08/16/24) Abnormal posture (08/16/24) Weakness (08/16/24) Physical Therapy Treatment Note PT-OP-A Visit Information Start: 04/25/24 10:29 Freq: Status: Active Protocol: Document 08/16/24 08:17 [facility] (Rec: 08/16/24 09:48 [facility] [id number]) Out-Patient Physical Therapy Visit Information Visit Information Visit Type Treatment Note Visit Start Time 09:06 Visit Stop Time 09:45 Visit Number 18 (3/ approved) Number of PRISON LIBRARIAN Visits 0 PT-OP-B Current Condition Start: 04/25/24 10:29 Freq: Status: Active Protocol: Document 05/04/24 09:45 [facility] (Rec: 05/04/24 10:51 [facility] [id number]) Current Condition History of Current Condition Onset Date Mar 2 Current Complaints lami L4-5 History of Current Condition Pt had laminectomy L4-5 Dec 2 d/t could hardly bent L leg. Took care of flexiblity issues but is still very still when first gets up. no more pain down leg. Pt reports doens't ahve much pain but feels stiff when standing a long time. Pt reports has to walk slowly to not lose balance. He feels like over the past 3 years he has had a gradual dec in balance and ability to respond to uneven ground. Got to the point where he hasn't been able to ride horses for 3 years and has not been able to paly w/grandkids. 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 Has 7 of own horses and board 3 other horses but has a paper cone maker on the property to care of the horses for 15 days a month. Mostly does care of stalls but he does all the repairs of fences etc. Feels like got bent over more in the last year. First started getting back pain and leg issues about 3 years ago. did have neck surgery and was helping friend get horse in trailer and slipped on ice and fell on neck, head and shulder and was paralyzed for 24 hours in legs and arms gradually got movement back. had to be taken by ambulance to [facility]. C3-4 fusion and vertebral replacement (ant and post) performed at [facility] for emergency surgery may 14, 2009, (injury was Apr 27 2008) . During recovery process was very restricted for 5 months. Did have coordination issues after surgery and hasn't gotten full recovery of RUE. this has affected his leg coordination. Another occasion where he cracked a vertebra in back and thinks this may have contributed to stenosis in back. Does report he has BLT restrictiona nd adheres to lifting restrictions, but does feel like it is hard to avoid bending and twisting Treatment Goals Patient/Caregiver Goals Improve walking ability and be able mount his horse and ride again. PT-OP-C Subjective Start: 04/25/24 10:29 Freq: Status: Active Protocol: Document 08/16/24 08:17 [facility] (Rec: 08/16/24 09:48 [facility] [id number]) OP-PT Subjective Patient Comments Patient Comments Pt reports family has been in town so hasn't been to the gym as much. Reports is stiff today d/t walking a lot thursday and driving a lot PT-OP-D Balance Start: 04/25/24 10:29 Freq: Status: Active Protocol: Document 05/04/24 09:45 [facility] (Rec: 05/04/24 10:51 [facility] [id number]) Balance Tests Single Limb Standing Single Limb- Right able to lift leg only Single Limb- Left able to lift leg only PT-OP-E Functional Tests Start: 05/04/24 12:27 Freq: Status: Active Protocol: Document 08/09/24 09:01 [facility] (Rec: 08/09/24 10:46 [facility] [id number]) Functional Tests Dynamic Gait Index (DGI) Score PT-OP-F Manual Assessment Start: 04/25/24 10:29 Freq: Status: Active Protocol: Document 05/04/24 09:45 [facility] (Rec: 05/04/24 10:51 [facility] [id number]) Manual Assessments Joint Mobility Assessment Joint Mobility Assessment significant lack of hip mobility PT-OP-G Mobility & Gait Start: 04/25/24 10:29 Freq: Status: Active Protocol: Document 05/04/24 09:45 [facility] (Rec: 05/04/24 10:51 [id number] OP Gait Assessment Comments Gait Comments flexed trunk, dec RLE stance time, dec B foot clearance, lat L lean w/WB on LLE PT-OP-J Posture/Palpation/Skin Start: 04/25/24 10:29 Freq: Status: Active Protocol: Document 08/09/24 09:01 [facility] (Rec: 08/09/24 10:46 [facility] [id number]) Posture Evaluation [facility] Postural Classification System Lumbar Protective Mechanism Left AP 1 Lumbar Protective Mechanism Right AP 1 Lumbar Protective Mechanism Left PA 1 Lumbar Protective Mechanism Right PA 1 PT-OP-K Range of Motion Start: 04/25/24 10:29 Freq: Status: Active Protocol: Document 05/04/24 09:45 [facility] (Rec: 05/04/24 10:51 [facility] [id number]) Lumbar Spine Range of Motion Lumbar Spine Active Percentage Comments n/t d/t restrictions PT-OP-L Special Tests Start: 04/25/24 10:29 Freq: Status: Active Protocol: Document 05/04/24 09:45 [facility] (Rec: 05/04/24 10:51 [facility] [id number]) Special Tests Lumbar Spine Special Tests SLR Test Results R>L HS tightness Slump Test Results neg -dec HS length Other Special Tests Special Tests tone noted in RLE PT-OP-M Strength Start: 04/25/24 10:29 Freq: Status: Active Protocol: Document 08/09/24 09:01 [facility] (Rec: 08/09/24 10:46 [facility] [id number]) Hip Strength Hip Manual Muscle Testing Right Flexion (L2) 4 Good Abduction 4- Good- External Rotation 4+ Good+ Internal Rotation 5 Normal Left Flexion (L2) 5 Normal Abduction 4 Good External Rotation 4+ Good+ Internal Rotation 5 Normal Knee Strength Knee Manual Muscle Testing Right Flexion (S2) 4+ Good+ Extension (L3) 5 Normal Left Flexion (S2) 5 Normal Extension (L3) 5 Normal Ankle/Foot Strength Ankle and Foot Manual Muscle Testing Right Dorsiflexion (L4) 4+ Good+ Plantarflexion (S1) 4+ Good+ Left Dorsiflexion (L4) 5 Normal Plantarflexion (S1) 5 Normal Comments PF tested seated B PT-OP-Q Treatments Start: 04/25/24 10:29 Freq: Status: Active Protocol: Document 08/16/24 08:17 [facility] (Rec: 08/16/24 09:48 [facility] [id number]) Gym Equipment Shuttle Recovery Bilateral Heel Raises Resistance 37# (1 navy) Reps/Time 20 unilateral squat Resistance 62# (2 navy) Reps/Time 20 reps each LE Bilateral Squats Details improved knee alignment Resistance 87# (3 navy); 100# ( 3 navy) Reps/Time 20 reps ea Therapeutic Exercises Standing Exercises hip rotation Standing Exercise Name 1.fwd circles 2. backwards circles Side right Equipment Used rail Reps/Minutes 8 ea directions Comments cues posture Manual Therapy Treatment Consent Patient gave verbal consent for manual Yes treatment Soft Tissue Mobilization hips Mobilization Type Rolling,Strumming Comments HS, add, ITB Manual Techniques stretching Type manual stretch into hip flex, ER, add, abd and HS stretch B PT-OP-T Assessment and Plan Start: 04/25/24 10:29 Freq: Status: Active Protocol: Document 08/16/24 08:17 [facility] (Rec: 08/16/24 09:48 [facility] [id number]) Physical Therapy Assessment Goals balance Impairment DGI 11/17 Short Term Goal (STG) Pt will improve DGI to at least 13 to dec fall risk STG Duration achieved 05/30 Nursing Home Goal (LTG) Pt will improve DGI to at least 18 to dec fall risk 06/27- LTG Duration achieved to 18 08/09 activity Environmental Test Technician Goal (LTG) Pt will be able to ride horse and participate in all care of property. 2/3-feels stronger on the property and getting back to full work, hasn't rode a horse 06/27-has not gotten on a horse; is doing everything he needs to but needs to step higher w/ bridger 08/09-Some days stiffer than others, not avoiding anything. Hasn't ridden a horse LTG Duration 08/22 strength Short Term Goal (STG) Pt will be indep w/HEP STG Duration achieved advancing as able Environmental Test Technician Goal (LTG) Pt will score at least 4+/5 on all BLE MMT and at least 3/5 on LPM to show improved stability to allow greater ease w/typical activities. 2/3-improving LE strength 33-improving 08/09-improved LTG Duration 5/9 Assessment Summary Assessment Pt did well with strength activities with inc weight. Was more stiff when walking and moving though today Physical Therapy Plan Next Visit Focus/Plan Next Note Type Treatment Note Next Visit Plan 1 more visits approved: Work towards DC for HEP and cont balance work
--- NOTE | 2024-08-23 15:19 | PT.OTN ---
Current Diagnoses Spinal stenosis, lumbar region with neurogenic claudication (08/23/24) Postlaminectomy syndrome, not elsewhere classified (08/23/24) Other abnormalities of gait and mobility (08/23/24) Abnormal posture (08/23/24) Weakness (08/23/24) Physical Therapy Treatment Note PT-OP-A Visit Information Start: 04/25/24 10:29 Freq: Status: Active Protocol: Document 08/23/24 15:12 [facility] (Rec: 08/23/24 15:19 [facility] [id number]) Out-Patient Physical Therapy Visit Information Visit Information Visit Type Discharge Summary Visit Start Time 09:05 Visit Stop Time 09:45 Visit Number 19 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 Took care of flexiblity issues but is still very still when first gets up. no more pain down leg. Pt reports doens't ahve much pain but feels stiff when standing a long time. Pt reports has to walk slowly to not lose balance. He feels like over the past 3 years he has had a gradual dec in balance and ability to respond to uneven ground. Got to the point where he hasn't been able to ride horses for 3 years and has not been able to paly w/grandkids. 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 Has 7 of own horses and board 3 other horses but has a old coin dealer on the property to care of the horses for 15 days a month. Mostly does care of stalls but he does all the repairs of fences etc. Feels like got bent over more in the last year. First started getting back pain and leg issues about 3 years ago. did have neck surgery and was helping friend get horse in trailer and slipped on ice and fell on neck, head and shulder and was paralyzed for 24 hours in legs and arms gradually got movement back. had to be taken by ambulance to [facility]. C3-4 fusion and vertebral replacement (ant and post) performed at [facility] for emergency surgery may 14, 2009, (injury was Apr 27 2008) . During recovery process was very restricted for 5 months. Did have coordination issues after surgery and hasn't gotten full recovery of RUE. this has affected his leg coordination. Another occasion where he cracked a vertebra in back and thinks this may have contributed to stenosis in back. Does report he has BLT restrictiona nd adheres to lifting restrictions, but does feel like it is hard to avoid bending and twisting Treatment Goals Patient/Caregiver Goals Improve walking ability and be able mount his horse and ride again. PT-OP-C Subjective Start: 04/25/24 10:29 Freq: Status: Active Protocol: Document 08/23/24 15:12 [facility] (Rec: 08/23/24 15:19 [facility] [id number]) OP-PT Subjective Patient Comments Patient Comments Pt reports he tried bikes at the gym and had difficulty w/ ankles PT-OP-D Balance Start: 04/25/24 10:29 Freq: Status: Active Protocol: Document 05/04/24 09:45 [facility] (Rec: 05/04/24 10:51 [facility] [id number]) Balance Tests Single Limb Standing Single Limb- Right able to lift leg only Single Limb- Left able to lift leg only PT-OP-E Functional Tests Start: 05/04/24 12:27 Freq: Status: Active Protocol: Document 08/09/24 09:01 [facility] (Rec: 08/09/24 10:46 [facility] [id number]) Functional Tests Dynamic Gait Index (DGI) Score PT-OP-F Manual Assessment Start: 04/25/24 10:29 Freq: Status: Active Protocol: Document 05/04/24 09:45 [facility] (Rec: 05/04/24 10:51 [facility] [id number]) Manual Assessments Joint Mobility Assessment Joint Mobility Assessment significant lack of hip mobility PT-OP-G Mobility & Gait Start: 04/25/24 10:29 Freq: Status: Active Protocol: Document 05/04/24 09:45 [facility] (Rec: 05/04/24 10:51 [facility] [id number]) OP Gait Assessment Comments Gait Comments flexed trunk, dec RLE stance time, dec B foot clearance, lat L lean w/WB on LLE PT-OP-J Posture/Palpation/Skin Start: 04/25/24 10:29 Freq: Status: Active Protocol: Document 08/09/24 09:01 [facility] (Rec: 08/09/24 10:46 [facility] [id number]) Posture Evaluation [facility] Postural Classification System Lumbar Protective Mechanism Left AP 1 Lumbar Protective Mechanism Right AP 1 Lumbar Protective Mechanism Left PA 1 Lumbar Protective Mechanism Right PA 1 PT-OP-K Range of Motion Start: 04/25/24 10:29 Freq: Status: Active Protocol: Document 05/04/24 09:45 [facility] (Rec: 05/04/24 10:51 [facility] [id number]) Lumbar Spine Range of Motion Lumbar Spine Active Percentage Comments n/t d/t restrictions PT-OP-L Special Tests Start: 04/25/24 10:29 Freq: Status: Active Protocol: Document 05/04/24 09:45 [facility] (Rec: 05/04/24 10:51 [facility] [id number]) Special Tests Lumbar Spine Special Tests SLR Test Results R>L HS tightness Slump Test Results neg -dec HS length Other Special Tests Special Tests tone noted in RLE PT-OP-M Strength Start: 04/25/24 10:29 Freq: Status: Active Protocol: Document 08/09/24 09:01 [facility] (Rec: 08/09/24 10:46 [facility] [id number]) Hip Strength Hip Manual Muscle Testing Right Flexion (L2) 4 Good Abduction 4- Good- External Rotation 4+ Good+ Internal Rotation 5 Normal Left Flexion (L2) 5 Normal Abduction 4 Good External Rotation 4+ Good+ Internal Rotation 5 Normal Knee Strength Knee Manual Muscle Testing Right Flexion (S2) 4+ Good+ Extension (L3) 5 Normal Left Flexion (S2) 5 Normal Extension (L3) 5 Normal Ankle/Foot Strength Ankle and Foot Manual Muscle Testing Right Dorsiflexion (L4) 4+ Good+ Plantarflexion (S1) 4+ Good+ Left Dorsiflexion (L4) 5 Normal Plantarflexion (S1) 5 Normal Comments PF tested seated B PT-OP-Q Treatments Start: 04/25/24 10:29 Freq: Status: Active Protocol: Document 08/23/24 15:12 [facility] (Rec: 08/23/24 15:19 [facility] [id number]) Cardio Equipment Recumbent Bicycle Duration (Minutes) 4 Resistance 8 Seat Position 6 Other inc time >4 min for pt learning set up, appropriate position, options Bicycle (Upright) Duration (Minutes) 6 Resistance 10 Seat Position 6 Other inc time >6 min for pt learning set up, appropriate position, options Therapeutic Exercises Sitting Exercises SB Sitting Exercise Name seated and standing trunk SB by wall Reps/Minutes 20 sec hold then 10 reps ea Standing Exercises LE Standing Exercise Name leg swings fwd/back Side bilateral Reps/Minutes 2x10 wall posture Standing Exercise Name wall roll up w/UE ER and ext Reps/Minutes 1 min x2 Comments working on as much of tspine on wall that can get Neuro Re-Education Treatment Balance Activities grapevine Comments 2x20ft B PT-OP-T Assessment and Plan Start: 04/25/24 10:29 Freq: Status: Active Protocol: Document 08/23/24 15:12 [facility] (Rec: 08/23/24 15:19 [facility] [id number]) Physical Therapy Assessment Goals balance Impairment DGI 11/17 Short Term Goal (STG) Pt will improve DGI to at least 13 to dec fall risk STG Duration achieved 2/3 [employer] Goal (LTG) Pt will improve DGI to at least 18 to dec fall risk 06/27- LTG Duration achieved to 18 08/09 activity Prison Goal (LTG) Pt will be able to ride horse and participate in all care of property. 2/3-feels stronger on the property and getting back to full work, hasn't rode a horse 3/3-has not gotten on a horse; is doing everything he needs to but needs to step higher w/ bridger 08/09-Some days stiffer than others, not avoiding anything. Hasn't ridden a horse LTG Duration can do property care but has not tried horse strength Short Term Goal (STG) Pt will be indep w/HEP STG Duration achieved advancing as able Prison Goal (LTG) Pt will score at least 4+/5 on all BLE MMT and at least 3/5 on LPM to show improved stability to allow greater ease w/typical activities. 2/3-improving LE strength 3/3-improving 08/09-improved LTG Duration improved Assessment Summary Assessment Pt greatly improved strength and balance w/PT with much improved balance and strength and return to functional activity. He has returned to full work on his property but has not tried to ride a horse yet. He is doing well with gym exercsies and indep after edu today on bikes. DC to gym program and [facility] Physical Therapy Plan Discharge Physical Therapy Discharge Reasons Goals Met
== END 2024-08-24 13:15 | disposition home or self-care (01) ==
LOC: PHYS 09:00
PROVIDERS: Family Provider Internal Medicine; PCP Internal Medicine; Referring Provider Orthopaedic Surgery; Visit Provider Orthopaedic Surgery
DX: M96.1 Postlaminectomy syndrome, not elsewhere classified (principal); M48.062 Spinal stenosis, lumbar region with neurogenic claudication; R53.1 Weakness; R29.3 Abnormal posture; R26.89 Other abnormalities of gait and mobility
CPT/HCPCS: 97110; 97112; 97140; 97162